=== PATIENT | male | born 1975 | race Caucasian/White ===

== ENCOUNTER 2018-11-13 16:15 | Inpatient (IN) | payer OTHER ==
[2018-11-13 21:21] VITALS: BMI 29.7
--- NOTE | 2018-11-14 01:20 | HP ---
CIWA Score Nausea/Vomitin-No Nausea/No Vomiting Muscle Tremors: 1-None Visible, but [place] Anxiety: 4-Mod. Anxious/Guarded Agitation: 4-Moderately Restless Paroxysmal Sweats: 3 Orientation: 0-Oriented Tacttile Disturbances: 0-None Auditory Disturbances: 1-Very Mild Visual Disturbances: 0-None Headache: 0-None Present CIWA-Ar Total Score: 13 - Admission Criteria OAS Guidelines: Admission for Medically Managed Detox: Requires at least one of the followin. CIWA greater than 12 2. Seizures within the past 24 hours 3. Delirium tremens within the past 24 hours 4. Hallucinations within the past 24 hours 5. Acute intervention needed for co occurring medical disorder 6. Acute intervention needed for co occurring psychiatric disorder 7. Severe withdrawal that cannot be handled at a lower level of care (continued vomiting, continued diarrhea, abnormal vital signs) requiring intravenous medication and/or fluids 8. Patient presents the following: CIWA greater than 12 Admission Criteria Met: Admission criteria met Admission ROS [facility] - [facility] Chief Complaint: c/o withdrawal sx's Allergies/Adverse Reactions: Allergies Allergy/AdvReac Type Severity Reaction Status Date / Time No Known Allergies Allergy Verified 11/13/18 21:08 History of Present Illness: 43 Y.O. MALE WITH HX/O ALCOHOLISM HERE FOR DETOX. CLIENT PRESNTS WITH C/O WITHDRAWAL SX'S. CIWA 13. RECENTLY DETOXED AT [facility] ABOUT 14 DAYS AGO. CLIENT REPORTS IMMEDIATE RELAPSE AND HAS BEEN DRINKING ALCOHOL DAILY SINCE. LAST DRINK EARLIER TODAY. +EYE CHEMICAL PROCESS ENGINEER. DENIES HX/O CLEAN TIME. ON MMTP 130MG DAILY FROM [facility] PENDING VERIFICATION. DENIES HX/O SZ, DRUG OVERDOSE, IVDU. HOMELESS-ALF, UNEMPLOYED- HRA, DENIES LEGALS Exam Limitations: No Limitations - Ebola screening Have you traveled outside of the country in the last 21 days: No Have you had contact with anyone from an Ebola affected area: No Do you have a fever: No - Review of Systems Constitutional: Chills, Loss of Appetite, Changes in sleep EENT: reports: Blurred Vision (GLASSES-NOT WITH HIM), Nose Congestion, Dental Problems (MISSING TEETH) Respiratory: reports: No Symptoms reported Cardiac: reports: No Symptoms Reported GI: reports: Poor Fluid Intake : reports: No Symptoms Reported Musculoskeletal: reports: Back Pain Integumentary: reports: No Symptoms Reported Neuro: reports: No Symptoms reported Endocrine: reports: No Symptoms Reported Hematology: reports: No Symptoms Reported Psychiatric: reports: Orientated x3, Agitated (IRRITABLE), Anxious Other Systems: Reviewed and Negative Patient History - Patient Medical History Hx Anemia: No Hx Asthma: No Hx Chronic Obstructive Pulmonary Disease (COPD): No Hx Cancer: No Hx Cardiac Disorders: No Hx Congestive Heart Failure: No Hx Hypertension: No Hx Hypercholesterolemia: No Hx Pacemaker: No HX Cerebrovascular Accident: No Hx Seizures: No Hx Dementia: No Hx Diabetes: No Hx Gastrointestinal Disorders: No Hx Liver Disease: No Hx Genitourinary Disorders: No Hx Sexually Transmitted Disorders: No Hx Renal Disease (ESRD): No Hx Thyroid Disease: No Hx Human Immunodeficiency Virus (HIV): No Hx Hepatitis C: No Hx Depression: Yes Hx Suicide Attempt: No Hx Bipolar Disorder: No Hx Schizophrenia: No Other Medical History: DENIES - Patient Surgical History Past Surgical History: No - PPD History Previous Implant?: Yes Documented Results: Negative w/proof Implanted On Prior [facility] Admission?: No Date: 07/21/18 ([facility]) Results: 0MM PPD to be Administered?: No - Smoking Cessation Smoking history: Current every day smoker Have you smoked in the past 12 months: Yes Aproximately how many cigarettes per day: 12 Cigars Per Day: 0 Hx Chewing Tobacco Use: No Initiated information on smoking cessation: Yes 'Breaking Loose' booklet given: 11/14/18 - Substance & Tx. History Hx Alcohol Use: Yes Hx Substance Use: Yes Substance Use Type: Alcohol, Cocaine, Heroin, Prescribed ([facility]) Hx Substance Use Treatment: Yes ([facility]) - Substances abused Alcohol Substance route: Oral Frequency: Daily Amount used: 12 pack - 16 ounce, 7-10 nips of alcohol Age of first use: 18 Date of last use: 11/13/18 Crack Substance route: Smoking Frequency: 3-6 times per week Amount used: $60 Age of first use: 40 Date of last use: 10/30/18 Heroin Substance route: Inhalation Frequency: 3-6 times per week Amount used: 2 BAGS Age of first use: 32 Date of last use: 11/12/18 Family Disease History - Family Disease History Family History: Denies Admission Physical Exam BHS - Vital Signs Vital Signs: Vital Signs - 24 hr 07/08/19 07/08/19 21:10 22:53 Temperature 97.8 F 97.8 F Pulse Rate 46 L 46 L Respiratory 17 17 Rate Blood Pressure 129/91 129/91 - Physical General Appearance: Yes: Mild Distress, Irritable, Sweating, Anxious HEENTM: Yes: EOMI, Normocephalic, Normal Voice, CLARISA, Pharynx Normal, Nasal Congestion, Rhinorrhea, Other (POOR DENTITION WITH MISSING TEETH) Respiratory: Yes: Chest Non-Tender, Lungs Clear, Normal Breath Sounds, No Respiratory Distress, No Accessory Muscle Use Neck: Yes: No masses,lesions,Nodules, Supple, Trachea in good position Breast: Yes: Breast Exam Deferred Cardiology: Yes: Regular Rhythm, Regular Rate, S1, S2 Abdominal: Yes: Normal Bowel Sounds, Non Tender, Soft Genitourinary: Yes: Within Normal Limits Back: Yes: Normal Inspection Musculoskeletal: Yes: full range of Motion, Gait Steady Extremities: Yes: Normal Capillary Refill, Normal Range of Motion, Non-Tender Neurological: Yes: Alert, Motor Strength 5/5, Depressed Affect Integumentary: Yes: [place] Lymphatic: Yes: Within Normal Limits - Diagnostic (1) Methadone maintenance therapy patient Current Visit: Yes Status: Chronic (2) Alcohol dependence with uncomplicated withdrawal Current Visit: Yes Status: Acute (3) Uncomplicated opioid abuse Current Visit: Yes Status: Acute (4) At risk for dehydration due to poor fluid intake Current Visit: Yes Status: Acute (5) Substance induced mood disorder Current Visit: Yes Status: Acute (6) Depressed affect Current Visit: Yes Status: Acute (7) Cannabis abuse, uncomplicated Current Visit: Yes Status: Acute Cleared for Admission [facility] - Detox or Rehab [facility] Level of Care: Medically Managed Detox Regimen/Protocol: Librium, Not Applicable Claeared for Rehab Admission: No Breathalyzer - Breathalyzer Breathalyzer: 0 Urine Drug Screen - Test Device Lot number: [id number] Expiration date: 09/05/20 - Control Is test valid?: Yes - Results Drug screen NEGATIVE: No Urine drug screen results: THC-Marijuana, FEN-Fentanyl, MOP-Opiates, MTD- Methadone, BZO-Benzodiazepines Inpatient Rehab Admission - Rehab Decision to Admit Inpatient rehab admission?: No
[2018-11-14] MEDS ORDERED: chlordiazePOXIDE HCL 25 MG CAPSULE PO PRN (01:36)
[2018-11-14] MEDS ORDERED: DICYCLOMINE HCL 10 MG CAPSULE PO PRN (01:36)
[2018-11-14] MEDS ORDERED: METHOCARBAMOL 500 MG TABLET PO PRN (01:36)
[2018-11-14] MEDS ORDERED: MAGNESIUM HYDROX 2400MG/30ML ORAL SUSPENSION 30 ML CUP PO PRN (01:36)
[2018-11-14] MEDS ORDERED: hydrOXYzine PAMOATE 25 MG CAPSULE (FP) PO PRN (01:36)
[2018-11-14] MEDS ORDERED: MAGNESIUM CITRATE 300 ML BOTTLE PO PRN (01:36)
[2018-11-14] MEDS ORDERED: IBUPROFEN 400 MG TABLET (FP) PO PRN (01:36)
[2018-11-14] MEDS ORDERED: MAG HYDROX/AL HYDROX/SIMETH 30 ML UNIT-DOSE CUP PO PRN (01:36)
[2018-11-14] MEDS ORDERED: P-EPHED 60MG/TRIPROLIDI 2.5MG TABLET PO PRN (01:36)
[2018-11-14] MEDS ORDERED: guaiFENesin 200 MG/10 ML 10 ML UNIT-DOSE CUPS PO PRN (01:36)
[2018-11-14] MEDS ORDERED: MENTHOL/PHENOL 1 EACH UD MM PRN (01:36)
[2018-11-14] MEDS ORDERED: BISMUTH SUBSALICYLATE 524 MG/30 ML UD PO PRN (01:36)
[2018-11-14] MEDS ORDERED: NICOTINE POLACRILEX 2 MG GUM BUC PRN (01:36)
[2018-11-14] MEDS ORDERED: ACETAMINOPHEN 325 MG TABLET (FP) PO PRN ×2 (01:36)
[2018-11-14] MEDS ORDERED: ONDANSETRON *ODT* 4 MG TABLET SL PRN (01:36)
[2018-11-14] MEDS: chlordiazePOXIDE HCL 25 MG CAPSULE PO SCH ×4 (06:34→22:38)
[2018-11-14] MEDS ORDERED: METHADONE HCL 10 MG TABLET PO ONE (09:12)
[2018-11-14] MEDS ORDERED: hydrOXYzine HCL 25 MG TABLET (FP) PO PRN (09:20)
[2018-11-14] MEDS ORDERED: METHADONE 120 MG, METHADONE 10 MG PO ONE ×2 (09:30)
--- NOTE | 2018-11-14 10:14 | PN ---
S CIWA - CIWA Score Nausea/Vomitin-No Nausea/No Vomiting Muscle Tremors: 3 Anxiety: 3 Agitation: 3 Paroxysmal Sweats: 3 Orientation: 0-Oriented Tacttile Disturbances: 0-None Auditory Disturbances: 0-None Visual Disturbances: 0-None Headache: 0-None Present CIWA-Ar Total Score: 12 BHS Progress Note (SOAP) Subjective: sweats shakes interrupted sleep nausea body aches Objective: 11/14/18 10:14 Vital Signs Temperature 97.9 F 11/14/18 06:00 Pulse Rate 48 L 11/14/18 06:00 Respiratory Rate 18 11/14/18 06:00 Blood Pressure 125/87 11/14/18 06:00 O2 Sat by Pulse Oximetry (%) pending lab aaox3 ambulating no acute distress Assessment: 11/14/18 10:17 withdrawal sx Plan: continue detox increase fluids
[2018-11-14] MEDS: NICOTINE 21 MG/24 HOURS TOPICAL PATCH TD SCH (10:54)
[2018-11-14] MEDS: PRENATAL VITAMINS W/ FOLIC ACID TABLET (FP) PO SCH (10:54)
[2018-11-14] MEDS ORDERED: METHADONE HCL 10 MG TABLET ONE (10:55)
[2018-11-14] MEDS ORDERED: METHADONE HCL 40 MG DISPERSABLE TABLET ONE (10:56)
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
[2018-11-14 12:20] LABS: HEMATOCRIT 40.6 % (35.4-49); MCH 31.1 pg (25.7-33.7); MCHC 34.4 g/dl (32.0-35.9); MEAN CELL VOLUME 90.6 fl (80-96); MEAN PLT VOLUME 9.3 fl (7.5-11.1); PLATELET COUNT 170 K/MM3 (134-434); RBC 4.48 M/mm3 (4.00-5.60); RDW 12.8 % (11.9-15.9); WHITE BLOOD COUNT 5.8 K/mm3 (4.0-10.0)
[2018-11-14 12:38] LABS: URINE APPEARANCE CLEAR; URINE BILIRUBIN NEGATIVE (NEGATIVE); URINE COLOR YELLOW; URINE GLUCOSE (UA) NEGATIVE (NEGATIVE); URINE KETONE NEGATIVE (NEGATIVE); URINE LEUK ESTERASE NEGATIVE (NEGATIVE); URINE NITRITE NEGATIVE (NEGATIVE); URINE PROTEIN NEGATIVE (NEGATIVE); URINE UROBILINOGEN 0.2 mg/dL (0.2-1.0)
[2018-11-14 13:02] LABS: ALBUMIN 3.6 g/dl (3.4-5.0); BILIRUBIN,TOTAL 0.6 mg/dL (0.2-1); BLOOD UREA NITROGEN 17.2 mg/dL (7-18); CALCIUM 8.5 mg/dL (8.5-10.1); CREATININE 1.1 mg/dL (0.55-1.3); POTASSIUM 4.2 mmol/L (3.5-5.1); TOT PROT 6.7 g/dl (6.4-8.2)
--- NOTE | 2018-11-14 14:34 | EKG ---
Test Reason : Blood Pressure : / mmHG Vent. Rate : 049 BPM Atrial Rate : 049 BPM P-R Int : 160 ms QRS Dur : 096 ms QT Int : 504 ms P-R-T Axes : 044 060 027 degrees QTc Int : 455 ms SINUS BRADYCARDIA T WAVE ABNORMALITY, CONSIDER ANTERIOR ISCHEMIA ABNORMAL ECG NO PREVIOUS ECGS AVAILABLE Confirmed by Osmar Borges ([id number]) on 11/14/2018 2:34:16 PM Referred By: Confirmed By:Osmar Borges
[2018-11-14] MEDS: hydrOXYzine PAMOATE 50 MG CAPSULE (FP) PO PRN ×2 (17:24→22:42)
[2018-11-14] MEDS: THIAMINE HCL 100 MG TABLET (FP) PO SCH (22:39)
[2018-11-14] MEDS: MELATONIN 5 MG TABLETS PO PRN (22:39)
[2018-11-14] MEDS: traZODone HCL 100 MG TABLET (FP) PO SCH (22:39)
[2018-11-15] MEDS ORDERED: METHADONE HCL 10 MG TABLET ONE (04:25)
[2018-11-15] MEDS ORDERED: METHADONE HCL 40 MG DISPERSABLE TABLET ONE (04:26)
[2018-11-15] MEDS ORDERED: METHADONE HCL 40 MG DISPERSABLE TABLET PO SCH (06:00)
[2018-11-15] MEDS: chlordiazePOXIDE HCL 25 MG CAPSULE PO SCH ×4 (06:02→23:19)
[2018-11-15] MEDS: METHADONE 120 MG, METHADONE 10 MG PO SCH (06:02)
[2018-11-15] MEDS: NICOTINE 21 MG/24 HOURS TOPICAL PATCH TD SCH (10:43)
[2018-11-15] MEDS: PRENATAL VITAMINS W/ FOLIC ACID TABLET (FP) PO SCH (10:43)
[2018-11-15] MEDS: hydrOXYzine PAMOATE 50 MG CAPSULE (FP) PO PRN (10:45)
--- NOTE | 2018-11-15 11:27 | PN ---
S CIWA - CIWA Score Nausea/Vomitin-No Nausea/No Vomiting Muscle Tremors: 2 Anxiety: 2 Agitation: 3 Paroxysmal Sweats: 3 Orientation: 0-Oriented Tacttile Disturbances: 0-None Auditory Disturbances: 0-None Visual Disturbances: 0-None Headache: 0-None Present CIWA-Ar Total Score: 10 BHS Progress Note (SOAP) Subjective: sweats shakes interrupted sleep agitation body aches Objective: 11/15/18 11:26 Vital Signs Temperature 98.6 F 11/15/18 09:30 Pulse Rate 45 L 11/15/18 09:30 Respiratory Rate 18 11/15/18 09:30 Blood Pressure 116/74 11/15/18 09:30 O2 Sat by Pulse Oximetry (%) Laboratory Tests 11/14/18 11/14/18 11/14/18 06:00 06:00 06:00 WBC 5.8 RBC 4.48 Hgb 14.0 Hct 40.6 MCV 90.6 MCH 31.1 MCHC 34.4 RDW 12.8 Plt Count 170 MPV 9.3 Sodium 138 Potassium 4.2 Chloride 104 Carbon Dioxide 28 Anion Gap 6 L BUN 17.2 Creatinine 1.1 Est GFR (CKD-EPI)AfAm 96.13 Est GFR (CKD-EPI)NonAf 82.94 Random Glucose 86 Calcium 8.5 Total Bilirubin 0.6 AST 24 ALT 51 Alkaline Phosphatase 70 Total Protein 6.7 Albumin 3.6 Urine Color Urine Appearance Urine pH Ur Specific [place] Urine Protein Urine Glucose (UA) Urine Ketones Urine Blood Urine Nitrite Urine Bilirubin Urine Urobilinogen Ur Leukocyte Esterase RPR Titer Nonreactive 11/14/18 07:15 WBC RBC Hgb Hct MCV MCH MCHC RDW Plt Count MPV Sodium Potassium Chloride Carbon Dioxide Anion Gap BUN Creatinine Est GFR (CKD-EPI)AfAm Est GFR (CKD-EPI)NonAf Random Glucose Calcium Total Bilirubin AST ALT Alkaline Phosphatase Total Protein Albumin Urine Color Yellow Urine Appearance Clear Urine pH 8.0 Ur Specific [place] 1.010 Urine Protein Negative Urine Glucose (UA) Negative Urine Ketones Negative Urine Blood Negative Urine Nitrite Negative Urine Bilirubin Negative Urine Urobilinogen 0.2 Ur Leukocyte Esterase Negative RPR Titer labs noted aaox3 ambulating no acute distress Assessment: 11/15/18 11:26 withdrawal sx Plan: continue detox increase fluids
[2018-11-15 20:51] VITALS: PULSE 50
[2018-11-15] MEDS: traZODone HCL 100 MG TABLET (FP) PO SCH (22:10)
[2018-11-15] MEDS: MELATONIN 5 MG TABLETS PO PRN (22:10)
[2018-11-15] MEDS: THIAMINE HCL 100 MG TABLET (FP) PO SCH (22:10)
[2018-11-16] MEDS ORDERED: chlordiazePOXIDE HCL 10 MG CAPSULE PO PRN
[2018-11-16] MEDS ORDERED: METHADONE HCL 40 MG DISPERSABLE TABLET ONE (04:16)
[2018-11-16] MEDS ORDERED: METHADONE HCL 10 MG TABLET ONE (04:16)
[2018-11-16] MEDS ORDERED: chlordiazePOXIDE HCL 10 MG CAPSULE PO SCH (05:00)
[2018-11-16] MEDS: METHADONE 120 MG, METHADONE 10 MG PO SCH (05:14)
[2018-11-16 06:36] VITALS: BP 128/80; TEMP 97.3
--- NOTE | 2018-11-16 09:41 | PN ---
[facility] Progress Note Note: pt was admitted in withdrawals pt c/o of withdrawal sx and aggressive s/s management attempted however pt in spite of extensive motivational counseling regarding the risk of relapse, seizures, OD and or loss, pt chose to sign out AMA.
--- NOTE | 2018-11-16 09:46 | DS ---
[facility] Detox Discharge Summary Admission Date: 11/14/18 - History Present History: Alcohol Dependence, Cannabis Dependence, Cocaine Dependence, Opioid Dependence - Physical Exam Results Vital Signs: Vital Signs Temperature 97.3 F L 11/15/18 22:00 Pulse Rate 50 L 11/15/18 22:00 Respiratory Rate 18 11/16/18 03:30 Blood Pressure 128/80 11/15/18 22:00 O2 Sat by Pulse Oximetry (%) Pertinent Admission Physical Exam Findings: pt d/c AAOx3 no s/s of withdrawals noted all belonging and d/c papers provided. - Treatment Hospital Course: Discharged Condition Good - Medication Discharge Medications: Ambulatory Orders Hydroxyzine HCl 25 mg PO PRN 11/13/18 cloNIDine HCL [Catapres -] 0.1 mg PO TID 11/13/18 - Diagnosis (1) Alcohol dependence with uncomplicated withdrawal Current Visit: Yes Status: Chronic (2) Cannabis abuse, uncomplicated Current Visit: Yes Status: Chronic (3) Cocaine dependence Current Visit: Yes Status: Chronic Qualifiers: Substance use status: uncomplicated Qualified Code(s): F14.20 - Cocaine dependence, uncomplicated (4) Substance induced mood disorder Current Visit: Yes Status: Chronic (5) Substance-induced sleep disorder Current Visit: Yes Status: Acute (6) Nicotine dependence Current Visit: Yes Status: Chronic Qualifiers: Nicotine product type: cigarettes Substance use status: uncomplicated Qualified Code(s): F17.210 - Nicotine dependence, cigarettes, uncomplicated (7) Anxiety disorder Current Visit: Yes Status: Ruled-out (8) Mood disorder Current Visit: Yes Status: Ruled-out (9) Opioid dependence with withdrawal Current Visit: Yes Status: Chronic - AMA Did Patient Leave Against Medical Advice: Yes (pt declined rehab; referred to [facility] when he is ready)
[2018-11-17] MEDS ORDERED: chlordiazePOXIDE HCL 10 MG CAPSULE PO SCH (05:00)
[2018-11-18] MEDS ORDERED: chlordiazePOXIDE HCL 10 MG CAPSULE PO ONE (05:00)
== END 2018-11-16 09:21 | disposition home or self-care (01) | DRG 773 ==
LOC: YASAS 16:15 → Y6N 11-14 01:30
PROVIDERS: ADMIT Surgery; ATTEND Surgery
PROC: HZ2ZZZZ Detoxification Services for Substance Abuse Treatment (ICD-10-PCS; principal; 2018-11-14)
DX: F11.23 Opioid dependence with withdrawal (principal); F10.230 Alcohol dependence with withdrawal, uncomplicated; F14.20 Cocaine dependence, uncomplicated; F12.20 Cannabis dependence, uncomplicated; F17.210 Nicotine dependence, cigarettes, uncomplicated; F19.282 Other psychoactive substance dependence with psychoactive substance-induced sleep disorder; F19.24 Other psychoactive substance dependence with psychoactive substance-induced mood disorder; F32.9 Major depressive disorder, single episode, unspecified; R45.89 Other symptoms and signs involving emotional state; Z91.89 Other specified personal risk factors, not elsewhere classified
CPT/HCPCS: 36415; 80053; 81003; 85027; 86593; 93005; 93010

== ENCOUNTER 2019-06-08 10:25 | Inpatient (IN) | payer OTHER ==
[2019-06-08 11:13] VITALS: BMI 25.2
--- NOTE | 2019-06-08 12:05 | HP ---
CIWA Score Nausea/Vomitin Muscle Tremors: 1-None Visible, but [place] Anxiety: 4-Mod. Anxious/Guarded Agitation: 2 Paroxysmal Sweats: 2 Orientation: 0-Oriented Tacttile Disturbances: 1-Very Mild Itch/Numbness Auditory Disturbances: 0-None Visual Disturbances: 1-Very Mild Sensitivity Headache: 0-None Present CIWA-Ar Total Score: 13 - Admission Criteria OASAS Guidelines: Admission for Medically Managed Detox: Requires at least one of the followin. CIWA greater than 12 2. Seizures within the past 24 hours 3. Delirium tremens within the past 24 hours 4. Hallucinations within the past 24 hours 5. Acute intervention needed for co occurring medical disorder 6. Acute intervention needed for co occurring psychiatric disorder 7. Severe withdrawal that cannot be handled at a lower level of care (continued vomiting, continued diarrhea, abnormal vital signs) requiring intravenous medication and/or fluids 8. Admitting History and Physical - Smoking History Smoking history: Current every day smoker Have you smoked in the past 12 months: Yes Aproximately how many cigarettes per day: 12 - Alcohol/Substance Use Hx Alcohol Use: Yes Admission ROS [facility] Allergies/Adverse Reactions: Allergies Allergy/AdvReac Type Severity Reaction Status Date / Time No Known Allergies Allergy Verified 06/08/19 11:06 History of Present Illness: 43 y.o. male requesting detox from etoh use , reports 1 pint /day latest use yesterday , reports nausea if not drinking , denies seizures, had blackout 2 mo ago , completed detox & rehab in [facility] and relapsed after d/c . PMHX : denies psych : insomnia on Seroquel Pshx : denies tobacco : 12 cigs/day Exam Limitations: Clinical Condition - Review of Systems Constitutional: Loss of Appetite EENT: reports: No Symptoms Reported Respiratory: reports: No Symptoms reported Cardiac: reports: No Symptoms Reported GI: reports: Constipated, Poor Appetite : reports: No Symptoms Reported Musculoskeletal: reports: No Symptoms Reported Integumentary: reports: No Symptoms Reported Neuro: reports: See HPI Endocrine: reports: No Symptoms Reported Psychiatric: reports: Anxious, Depressed, Disorientated Patient History - Patient Medical History Hx Anemia: No Hx Asthma: No Hx Chronic Obstructive Pulmonary Disease (COPD): No Hx Cancer: No Hx Cardiac Disorders: No Hx Congestive Heart Failure: No Hx Hypertension: No Hx Hypercholesterolemia: No Hx Pacemaker: No HX Cerebrovascular Accident: No Hx Seizures: No Hx Dementia: No Hx Diabetes: No Hx Gastrointestinal Disorders: No Hx Liver Disease: No Hx Genitourinary Disorders: No Hx Sexually Transmitted Disorders: No Hx Renal Disease (ESRD): No Hx Thyroid Disease: No Hx Human Immunodeficiency Virus (HIV): No Hx Hepatitis C: No Hx Depression: No Hx Suicide Attempt: No Hx Bipolar Disorder: No Hx Schizophrenia: No - Patient Surgical History Past Surgical History: No Hx Neurologic Surgery: No Hx Cataract Extraction: No Hx Cardiac Surgery: No Hx Lung Surgery: No Hx Breast Surgery: No Hx Breast Biopsy: No Hx Abdominal Surgery: No Hx Appendectomy: No Hx Cholecystectomy: No Hx Genitourinary Surgery: No Hx Section: No Hx Orthopedic Surgery: No Anesthesia Reaction: No - PPD History Date: 07/21/18 Results: 0MM - Smoking Cessation Smoking history: Current every day smoker Have you smoked in the past 12 months: Yes Aproximately how many cigarettes per day: 12 Cigars Per Day: 0 Hx Chewing Tobacco Use: No Initiated information on smoking cessation: Yes 'Breaking Loose' booklet given: 06/08/19 - Substances abused Alcohol Substance route: Oral Frequency: Daily Amount used: vodka- 1pt Age of first use: 16 Date of last use: 06/07/19 Heroin Substance route: Inhalation Frequency: Daily Amount used: 3bags Age of first use: 32 Date of last use: 06/07/19 Crack Substance route: Smoking Frequency: Daily Amount used: $50 Age of first use: 40 Date of last use: 06/06/19 Admission Physical Exam S - Vital Signs Vital Signs: Vital Signs - 24 hr 06/08/19 11:05 Temperature 98.2 F Pulse Rate 55 L Respiratory 18 Rate Blood Pressure 135/97 - Physical General Appearance: Yes: Disheveled, Mild Distress, Anxious HEENTM: Yes: EOMI, Hearing grossly Normal, Normocephalic, Muffled/Hoarse Voice, Other (myopia , denies dysphagia) Respiratory: Yes: Within Normal Limits Neck: Yes: Within Normal Limits Cardiology: Yes: Regular Rhythm, Regular Rate, S1, S2 Abdominal: Yes: Non Tender, Soft Musculoskeletal: Yes: Gait Steady Extremities: Yes: Normal Range of Motion, Non-Tender Neurological: Yes: Alert, Motor Strength 5/5, Depressed Affect Integumentary: Yes: Warm, Other (superficial staining fingertips right hand 2/ 2 tobacco use) - Diagnostic (1) Alcohol dependence with uncomplicated withdrawal Current Visit: Yes Status: Chronic (2) Nicotine dependence Current Visit: Yes Status: Chronic Qualifiers: Nicotine product type: cigarettes Substance use status: uncomplicated Qualified Code(s): F17.210 - Nicotine dependence, cigarettes, uncomplicated Breathalyzer - Breathalyzer Breathalyzer: 0 Urine Drug Screen - Test Device Lot number: [id number] Expiration date: 04/02/21 - Control Is test valid?: Yes - Results Drug screen NEGATIVE: No Urine drug screen results: THC-Marijuana, MOP-Opiates, MTD-Methadone Inpatient Rehab Admission - Rehab Decision to Admit Inpatient rehab admission?: No
[2019-06-08] MEDS ORDERED: MAG HYDROX/AL HYDROX/SIMETH 30 ML UNIT-DOSE CUP PO PRN (12:10)
[2019-06-08] MEDS ORDERED: IBUPROFEN 400 MG TABLET (FP) PO PRN (12:10)
[2019-06-08] MEDS ORDERED: BISMUTH SUBSALICYLATE 524 MG/30 ML UD PO PRN (12:10)
[2019-06-08] MEDS ORDERED: MELATONIN 5 MG TABLETS PO PRN (12:10)
[2019-06-08] MEDS ORDERED: ACETAMINOPHEN 325 MG TABLET (FP) PO PRN ×2 (12:10)
[2019-06-08] MEDS ORDERED: MAGNESIUM HYDROX 2400MG/30ML ORAL SUSPENSION 30 ML CUP PO PRN (12:10)
[2019-06-08] MEDS ORDERED: MENTHOL/PHENOL 1 EACH UD MM PRN (12:10)
[2019-06-08] MEDS ORDERED: hydrOXYzine PAMOATE 25 MG CAPSULE (FP) PO PRN (12:10)
[2019-06-08] MEDS ORDERED: MAGNESIUM CITRATE 300 ML BOTTLE PO PRN (12:10)
[2019-06-08] MEDS ORDERED: NICOTINE POLACRILEX 2 MG GUM BUC PRN (12:10)
[2019-06-08] MEDS ORDERED: diazePAM 5 MG TABLET PO PRN (12:14)
[2019-06-08] MEDS: diazePAM 5 MG TABLET PO SCH ×2 (13:47→22:40)
[2019-06-08] MEDS: ASPIRIN 81 MG CHEWABLE TABLETS PO SCH (13:47)
[2019-06-08] MEDS: METHOCARBAMOL 500 MG TABLET PO PRN ×2 (13:48→22:40)
--- NOTE | 2019-06-08 14:35 | CONSULT ---
[facility] Psychiatric Consult - Data Date of interview: 06/08/19 Admission source: [facility] Identifying data: Revisit to [facility] and admission to [address] [place] [address] for this 43 y/o male self-referred for detoxification treatment. ELYSE issues : heroin, benzodiazepines, alcohol, nicotine. Patient is , no dependents, homeless, unempleoyed and supported on food stamps. Substance Abuse History: Discussed with the patient. Details in current [facility] report as follows : Smoking history: Current every day smoker. Have you smoked in the past 12 months: Yes. Aproximately how many cigarettes per day: 12. Cigars Per Day: 0. Hx Chewing Tobacco Use: No. Initiated information on smoking cessation: Yes. 'Breaking Loose' booklet given: 06/08/19. - Substances abused. Alcohol. Substance route: Oral. Frequency: Daily. Amount used: vodka- 1pt. Age of first use: 16. Date of last use: 06/07/19. * * Heroin. Substance route: Inhalation. Frequency: Daily. Amount used: 3bags. Age of first use: 32. Date of last use: 06/07/19. Crack. Substance route : Smoking. Frequency: Daily. Amount used: $50. Age of first use: 40. Date of last use: 06/06/19 Medical History: methadone 130 mg/day from [facility]. Psychiatric History: No contact with mental health providers until October 2018 ( admission to [facility]). patient was, at the time, prescribed trazodone, clonidine and hydroxizine. In this interview, Mr Lynn reports that he got admitted, late 2018, to the inpatient psychiatric service at [facility] (two week retention for depression). Diagnosed with MDD and Anxiety Disorder. Patient indicates that he sees a psychiatrist at the [facility] for aftercare. He is also on methadone maintenance (150 mg/day) at the [facility]. Denies history of suicide attempts. Physical/Sexual Abuse/Trauma History: Patient denies. Additional Comment: Urine drug screen results: THC-Marijuana, MOP-Opiates, MTD- Methadone. Noted. Mental Status Exam - Mental Status Exam Alert and Oriented to: Time, Place, Person Cognitive Function: Good Patient Appearance: Well Groomed Mood: Anxious, Hopeful Affect: Appropriate, Normal Range Patient Behavior: Fatigued, Appropriate, Cooperative Speech Pattern: Clear, Appropriate Voice Loudness: Normal Thought Process: Intact, Goal Oriented Thought Disorder: Not Present Hallucinations: Denies Suicidal Ideation: Denies Homicidal Ideation: Denies Insight/Judgement: Poor Sleep: Poorly, Difficulty falling asleep Appetite: Good Gait/Station: Normal Psychiatric Findings - Problem List ([place] 1, 2,3) (1) Alcohol dependence with uncomplicated withdrawal Current Visit: Yes Status: Acute (2) Opioid dependence on agonist therapy Current Visit: Yes Status: Chronic (3) Cocaine dependence Current Visit: Yes Status: Chronic Qualifiers: Substance use status: uncomplicated Qualified Code(s): F14.20 - Cocaine dependence, uncomplicated (4) Cannabis abuse, uncomplicated Current Visit: Yes Status: Chronic (5) Nicotine dependence Current Visit: Yes Status: Chronic Qualifiers: Nicotine product type: cigarettes Substance use status: uncomplicated Qualified Code(s): F17.210 - Nicotine dependence, cigarettes, uncomplicated (6) Substance induced mood disorder Current Visit: Yes Status: Chronic (7) Insomnia Current Visit: Yes Status: Chronic - Initial Treatment Plan Initial Treatment Plan: Psychoeducation. Sleep hygiene. Detoxification. Support. AA/NA meetings. Resumed at patient's request : seroquel 50 mg po hs. Side effects/benefits discussed with patient. Verbal consent is obtained from the patient. Rehabilitation recommended. Observation.
[2019-06-08 16:48] LABS: HEMATOCRIT 43.4 % (35.4-49); HEMOGLOBIN 14.6 GM/dL (11.7-16.9); MCH 31.2 pg (25.7-33.7); MCHC 33.7 g/dl (32.0-35.9); MEAN CELL VOLUME 92.5 fl (80-96); MEAN PLT VOLUME 9.2 fl (7.5-11.1); PLATELET COUNT 196 K/MM3 (134-434); RBC 4.69 M/mm3 (4.00-5.60); RDW 14.1 % (11.9-15.9); WHITE BLOOD COUNT 6.4 K/mm3 (4.0-10.0)
[2019-06-08 17:04] LABS: ALBUMIN 3.6 g/dl (3.4-5.0); BILIRUBIN,TOTAL 0.4 mg/dL (0.2-1); BLOOD UREA NITROGEN 8.9 mg/dL (7-18); CALCIUM 8.7 mg/dL (8.5-10.1); CREATININE 0.9 mg/dL (0.55-1.3); POTASSIUM 3.9 mmol/L (3.5-5.1); TOT PROT 7.5 g/dl (6.4-8.2)
[2019-06-08] MEDS: THIAMINE HCL 100 MG TABLET (FP) PO SCH (22:40)
[2019-06-08] MEDS: QUEtiapine FUMARATE 50 MG TABLET PO SCH (22:40)
[2019-06-09] MEDS ORDERED: METHADONE HCL 10 MG TABLET ONE (04:46)
[2019-06-09] MEDS ORDERED: METHADONE HCL 40 MG DISPERSABLE TABLET ONE (04:47)
[2019-06-09] MEDS ORDERED: METHADONE HCL 10 MG TABLET PO SCH (06:00)
[2019-06-09] MEDS: METHADONE 120 MG, METHADONE 30 MG PO SCH (06:45)
[2019-06-09] MEDS: diazePAM 5 MG TABLET PO SCH ×3 (06:45→23:16)
[2019-06-09] MEDS: PRENATAL VITAMINS W/ FOLIC ACID TABLET (FP) PO SCH (11:13)
[2019-06-09] MEDS: amLODIPine BESYLATE 10 MG TABLET (FP) PO SCH (11:13)
[2019-06-09] MEDS: ASPIRIN 81 MG CHEWABLE TABLETS PO SCH (11:13)
--- NOTE | 2019-06-09 11:29 | PN ---
S CIWA - CIWA Score Nausea/Vomitin-No Nausea/No Vomiting Muscle Tremors: 2 Anxiety: 3 Agitation: 1-Slight > Activity Paroxysmal Sweats: 3 Orientation: 0-Oriented Tacttile Disturbances: 0-None Auditory Disturbances: 0-None Visual Disturbances: 0-None Headache: 1-Very Mild CIWA-Ar Total Score: 10 S Progress Note (SOAP) Subjective: c/o sweats, shakes, anxiety, light headedness, weakness, and headache. Objective: 06/09/19 11:34 Vital Signs 06/09/19 06/09/19 06/09/19 06:40 08:52 11:05 Temperature 98.5 F 97.6 F Pulse Rate 46 L 40 L 59 L Respiratory 18 16 Rate Blood Pressure 140/95 154/99 175/106 H 06/09/19 11:06 Temperature Pulse Rate 56 L Respiratory Rate Blood Pressure 166/113 H Laboratory Last Values WBC 6.4 K/mm3 (4.0-10.0) 06/08/19 12:30 RBC 4.69 M/mm3 (4.00-5.60) 06/08/19 12:30 Hgb 14.6 GM/dL (11.7-16.9) 06/08/19 12:30 Hct 43.4 % (35.4-49) 06/08/19 12:30 MCV 92.5 fl (80-96) 06/08/19 12:30 MCH 31.2 pg (25.7-33.7) 06/08/19 12:30 MCHC 33.7 g/dl (32.0-35.9) 06/08/19 12:30 RDW 14.1 % (11.9-15.9) D 06/08/19 12:30 Plt Count 196 K/MM3 (134-434) 06/08/19 12:30 MPV 9.2 fl (7.5-11.1) 06/08/19 12:30 Sodium 138 mmol/L (136-145) 06/08/19 12:30 Potassium 3.9 mmol/L (3.5-5.1) 06/08/19 12:30 Chloride 106 mmol/L (98-107) 06/08/19 12:30 Carbon Dioxide 28 mmol/L (21-32) 06/08/19 12:30 Anion Gap 5 MMOL/L (8-16) L 06/08/19 12:30 BUN 8.9 mg/dL (7-18) 06/08/19 12:30 Creatinine 0.9 mg/dL (0.55-1.3) 06/08/19 12:30 Est GFR (CKD-EPI)AfAm 122.52 06/08/19 12:30 Est GFR (CKD-EPI)NonAf 105.71 06/08/19 12:30 Random Glucose 86 mg/dL (74-106) 06/08/19 12:30 Calcium 8.7 mg/dL (8.5-10.1) 06/08/19 12:30 Total Bilirubin 0.4 mg/dL (0.2-1) 06/08/19 12:30 AST 15 U/L (15-37) 06/08/19 12:30 ALT 21 U/L (13-61) 06/08/19 12:30 Alkaline Phosphatase 84 U/L (45-117) 06/08/19 12:30 Total Protein 7.5 g/dl (6.4-8.2) 06/08/19 12:30 Albumin 3.6 g/dl (3.4-5.0) 06/08/19 12:30 RPR Titer Nonreactive (NONREACTIVE) 06/08/19 12:30 Labs noted. Assessment: 06/09/19 11:35 AOX3, in no acute respiratory distress. Full ROM, ambulating in the unit. Withdrawal symptoms. Withdrawal symptoms. Bradycardia. Elevated BP. Abnormal EKG, marked bradycardia, marked T wave abnormality, consider lateral ischemia, prolonged QT. Plan: Send to ED for evaluation. Verbal report given to Dr. High at [facility] ED.
--- NOTE | 2019-06-09 16:31 | EKG ---
Test Reason : Blood Pressure : / mmHG Vent. Rate : 040 BPM Atrial Rate : 040 BPM P-R Int : 168 ms QRS Dur : 098 ms QT Int : 566 ms P-R-T Axes : 065 058 037 degrees QTc Int : 461 ms MARKED SINUS BRADYCARDIA LEFT ATRIAL ENLARGEMENT LEFT VENTRICULAR HYPERTROPHY WITH REPOLARIZATION ABNORMALITY Prominent U waves PROLONGED QT ABNORMAL ECG Confirmed by MD GÓMEZ MOYSES ([id number]) on 06/09/2019 4:31:03 PM Referred By: Confirmed By:SUSIE GÓMEZ MD
[2019-06-09] MEDS: QUEtiapine FUMARATE 50 MG TABLET PO SCH (23:16)
[2019-06-09] MEDS: THIAMINE HCL 100 MG TABLET (FP) PO SCH (23:16)
[2019-06-10] MEDS ORDERED: METHADONE HCL 10 MG TABLET ONE (05:07)
[2019-06-10] MEDS ORDERED: METHADONE HCL 40 MG DISPERSABLE TABLET ONE (05:08)
[2019-06-10] MEDS: diazePAM 5 MG TABLET PO SCH ×2 (07:14→17:49)
[2019-06-10] MEDS: METHADONE 120 MG, METHADONE 30 MG PO SCH (07:14)
[2019-06-10] MEDS: ASPIRIN 81 MG CHEWABLE TABLETS PO SCH (10:18)
[2019-06-10] MEDS: PRENATAL VITAMINS W/ FOLIC ACID TABLET (FP) PO SCH (10:18)
[2019-06-10] MEDS: amLODIPine BESYLATE 10 MG TABLET (FP) PO SCH (10:18)
--- NOTE | 2019-06-10 13:41 | PN ---
S CIWA - CIWA Score Nausea/Vomitin-No Nausea/No Vomiting Muscle Tremors: 1-None Visible, but [place] Anxiety: 1-Mildly Anxious Agitation: 1-Slight > Activity Paroxysmal Sweats: 1-Minimal Palms Moist Orientation: 0-Oriented Tacttile Disturbances: 0-None Auditory Disturbances: 0-None Visual Disturbances: 1-Very Mild Sensitivity Headache: 0-None Present CIWA-Ar Total Score: 5 [facility] Progress Note (SOAP) Subjective: 43 years old male admitted on 06/08/19 for alcohol withdrawal sx management treating with valium detox regiment feeling better today less anxiousness sleep better at night patient prefers returning to methadone program for behavior and psychosocial therapies Objective: 06/10/19 13:40 Vital Signs Temperature 98.8 F 06/10/19 08:52 Pulse Rate 64 06/10/19 08:52 Respiratory Rate 18 06/10/19 08:52 Blood Pressure 143/95 06/10/19 08:52 O2 Sat by Pulse Oximetry (%) Laboratory Last Values WBC 6.4 K/mm3 (4.0-10.0) 06/08/19 12:30 RBC 4.69 M/mm3 (4.00-5.60) 06/08/19 12:30 Hgb 14.6 GM/dL (11.7-16.9) 06/08/19 12:30 Hct 43.4 % (35.4-49) 06/08/19 12:30 MCV 92.5 fl (80-96) 06/08/19 12:30 MCH 31.2 pg (25.7-33.7) 06/08/19 12:30 MCHC 33.7 g/dl (32.0-35.9) 06/08/19 12:30 RDW 14.1 % (11.9-15.9) D 06/08/19 12:30 Plt Count 196 K/MM3 (134-434) 06/08/19 12:30 MPV 9.2 fl (7.5-11.1) 06/08/19 12:30 Sodium 138 mmol/L (136-145) 06/08/19 12:30 Potassium 3.9 mmol/L (3.5-5.1) 06/08/19 12:30 Chloride 106 mmol/L (98-107) 06/08/19 12:30 Carbon Dioxide 28 mmol/L (21-32) 06/08/19 12:30 Anion Gap 5 MMOL/L (8-16) L 06/08/19 12:30 BUN 8.9 mg/dL (7-18) 06/08/19 12:30 Creatinine 0.9 mg/dL (0.55-1.3) 06/08/19 12:30 Est GFR (CKD-EPI)AfAm 122.52 06/08/19 12:30 Est GFR (CKD-EPI)NonAf 105.71 06/08/19 12:30 Random Glucose 86 mg/dL (74-106) 06/08/19 12:30 Calcium 8.7 mg/dL (8.5-10.1) 06/08/19 12:30 Total Bilirubin 0.4 mg/dL (0.2-1) 06/08/19 12:30 AST 15 U/L (15-37) 06/08/19 12:30 ALT 21 U/L (13-61) 06/08/19 12:30 Alkaline Phosphatase 84 U/L (45-117) 06/08/19 12:30 Total Protein 7.5 g/dl (6.4-8.2) 06/08/19 12:30 Albumin 3.6 g/dl (3.4-5.0) 06/08/19 12:30 RPR Titer Nonreactive (NONREACTIVE) 06/08/19 12:30 lab noted Assessment: 06/10/19 13:41 alcohol withdrawal Plan: valium regiment
[2019-06-10] MEDS: THIAMINE HCL 100 MG TABLET (FP) PO SCH (22:28)
[2019-06-10] MEDS: QUEtiapine FUMARATE 50 MG TABLET PO SCH (22:28)
[2019-06-11] MEDS ORDERED: METHADONE HCL 10 MG TABLET ONE (04:51)
[2019-06-11] MEDS ORDERED: METHADONE HCL 40 MG DISPERSABLE TABLET ONE (04:51)
[2019-06-11] MEDS ORDERED: diazePAM 5 MG TABLET PO ONE (06:00)
[2019-06-11] MEDS: METHADONE 120 MG, METHADONE 30 MG PO SCH (06:18)
[2019-06-11] MEDS: PRENATAL VITAMINS W/ FOLIC ACID TABLET (FP) PO SCH (10:12)
[2019-06-11] MEDS: ASPIRIN 81 MG CHEWABLE TABLETS PO SCH (10:12)
[2019-06-11] MEDS: amLODIPine BESYLATE 10 MG TABLET (FP) PO SCH (10:12)
--- NOTE | 2019-06-11 11:33 | DS ---
[facility] Detox Discharge Summary Admission Date: 06/08/19 Discharge Date: 06/11/19 - History Present History: Alcohol Dependence Additional Comments: 43 years old male admitted on 06/08/19 for alcohol withdrawal sx management treated with valium detox regiment patient has completed the valium regiment and tolerated well alert oriented x 3 see by psychiatrist resume seroquel 50mg hs po respiratory clear lungs bilaterally on auscultation abdomen soft no rebound tenderness skin warm and dry - Physical Exam Results Vital Signs: Vital Signs Temperature 98.6 F 06/11/19 08:52 Pulse Rate 103 H 06/11/19 08:52 Respiratory Rate 06/11/19 08:52 Blood Pressure 133/99 06/11/19 08:52 O2 Sat by Pulse Oximetry (%) Pertinent Admission Physical Exam Findings: alcohol withdrawal Laboratory Last Values WBC 6.4 K/mm3 (4.0-10.0) 06/08/19 12:30 RBC 4.69 M/mm3 (4.00-5.60) 06/08/19 12:30 Hgb 14.6 GM/dL (11.7-16.9) 06/08/19 12:30 Hct 43.4 % (35.4-49) 06/08/19 12:30 MCV 92.5 fl (80-96) 06/08/19 12:30 MCH 31.2 pg (25.7-33.7) 06/08/19 12:30 MCHC 33.7 g/dl (32.0-35.9) 06/08/19 12:30 RDW 14.1 % (11.9-15.9) D 06/08/19 12:30 Plt Count 196 K/MM3 (134-434) 06/08/19 12:30 MPV 9.2 fl (7.5-11.1) 06/08/19 12:30 Sodium 138 mmol/L (136-145) 06/08/19 12:30 Potassium 3.9 mmol/L (3.5-5.1) 06/08/19 12:30 Chloride 106 mmol/L (98-107) 06/08/19 12:30 Carbon Dioxide 28 mmol/L (21-32) 06/08/19 12:30 Anion Gap 5 MMOL/L (8-16) L 06/08/19 12:30 BUN 8.9 mg/dL (7-18) 06/08/19 12:30 Creatinine 0.9 mg/dL (0.55-1.3) 06/08/19 12:30 Est GFR (CKD-EPI)AfAm 122.52 06/08/19 12:30 Est GFR (CKD-EPI)NonAf 105.71 06/08/19 12:30 Random Glucose 86 mg/dL (74-106) 06/08/19 12:30 Calcium 8.7 mg/dL (8.5-10.1) 06/08/19 12:30 Total Bilirubin 0.4 mg/dL (0.2-1) 06/08/19 12:30 AST 15 U/L (15-37) 06/08/19 12:30 ALT 21 U/L (13-61) 06/08/19 12:30 Alkaline Phosphatase 84 U/L (45-117) 06/08/19 12:30 Total Protein 7.5 g/dl (6.4-8.2) 06/08/19 12:30 Albumin 3.6 g/dl (3.4-5.0) 06/08/19 12:30 RPR Titer Nonreactive (NONREACTIVE) 06/08/19 12:30 lab noted - Treatment Hospital Course: Detox Protocol Followed, Detoxed Safely, Responded well, Discharged Condition Good, Rehab Referral Accepted Patient has Accepted [facility] Referral [facility] - Medication Discharge Medications: Ambulatory Orders Amlodipine Besylate [Norvasc -] 10 mg PO DAILY 06/08/19 Quetiapine Fumarate [Seroquel -] 50 mg PO HS 06/08/19 - Diagnosis (1) Alcohol dependence with uncomplicated withdrawal Current Visit: Yes Status: Acute (2) Nicotine dependence Current Visit: Yes Status: Acute Qualifiers: Nicotine product type: cigarettes Substance use status: in withdrawal Qualified Code(s): F17.213 - Nicotine dependence, cigarettes, with withdrawal (3) Substance induced mood disorder Current Visit: Yes Status: Suspected - AMA Did Patient Leave Against Medical Advice: No CIWA Score - CIWA Score Nausea/Vomitin-No Nausea/No Vomiting Muscle Tremors: 1-None Visible, but [place] Anxiety: 1-Mildly Anxious Agitation: 0-Normal Activity Paroxysmal Sweats: 1-Minimal Palms Moist Orientation: 0-Oriented Tacttile Disturbances: 0-None Auditory Disturbances: 0-None Visual Disturbances: 0-None Headache: 0-None Present CIWA-Ar Total Score: 3
[2019-06-11 13:36] VITALS: BP 129/99; PULSE 93; TEMP 97.3
== END 2019-06-11 14:09 | disposition other institution (70) | DRG 773 ==
LOC: YASAS 10:25 → Y3N 12:34
PROVIDERS: ADMIT Allergy & Immunology; ATTEND Allergy & Immunology
PROC: HZ2ZZZZ Detoxification Services for Substance Abuse Treatment (ICD-10-PCS; principal; 2019-06-08)
DX: F10.230 Alcohol dependence with withdrawal, uncomplicated (principal); F11.20 Opioid dependence, uncomplicated; F14.20 Cocaine dependence, uncomplicated; F12.20 Cannabis dependence, uncomplicated; F17.213 Nicotine dependence, cigarettes, with withdrawal; F19.24 Other psychoactive substance dependence with psychoactive substance-induced mood disorder; F41.9 Anxiety disorder, unspecified; F32.9 Major depressive disorder, single episode, unspecified; G47.00 Insomnia, unspecified; R94.31 Abnormal electrocardiogram [ECG] [EKG]; Z59.0 Homelessness
CPT/HCPCS: 36415; 80053; 85027; 86593; 93005; 93010

== ENCOUNTER 2019-06-09 12:13 | Emergency (ER) | payer OTHER ==
[2019-06-09 12:32] VITALS: PULSE 46; TEMP 97.6; BMI 25.8
[2019-06-09 13:10] LABS: BASO % 0.6 % (0-2.0); EOS % 0.3 % (0-4.5); HEMATOCRIT 46.5 % (35.4-49); HEMOGLOBIN 15.9 GM/dL (11.7-16.9); LYMPH % 18.5 % (8-40); MCH 30.8 pg (25.7-33.7); MCHC 34.1 g/dl (32.0-35.9); MEAN CELL VOLUME 90.4 fl (80-96); MEAN PLT VOLUME 8.7 fl (7.5-11.1); MONO % 7.6 % (3.8-10.2); PLATELET COUNT 194 K/MM3 (134-434); RBC 5.15 M/mm3 (4.00-5.60); RDW 14.2 % (11.9-15.9)
--- NOTE | 2019-06-09 13:21 | PDOC ---
History of Present Illness - General Chief Complaint: Irregular Heart Beat Stated Complaint: LOW HEART RATE - History of Present Illness Initial Comments: 06/09/19 13:15 HPI: 43 y/o M with hx of anxiety and depression presenting from [facility] for cardiac evaluation given concern for bradycardia and QT prolongation. Patient currently has no complaints. States last used K2, alcohol, and heroine 2 days ago and feels withdrawals coming on but received valium and methadone and feels well. Denies fever, PATTERSON, LH, chest pain, SOB, palptiations, abd pain, n/v, weakness. States he would like to be cleared and be sent back for rehab PMHx: as noted above ROS: as noted SHx: 1/2 ppd tobacco use; + alcohol use; heroine and K2 Allergies: NKDA ROS: GENERAL/CONSTITUTIONAL: No fever or chills. No weakness. HEAD, EYES, EARS, NOSE AND THROAT: No change in vision. No ear pain or discharge. No sore throat. CARDIOVASCULAR: No chest pain or shortness of breath RESPIRATORY: No cough, wheezing, or hemoptysis. GASTROINTESTINAL: No nausea, vomiting, diarrhea or constipation. GENITOURINARY: No dysuria, frequency, or change in urination. MUSCULOSKELETAL: No joint or muscle swelling or pain. No neck or back pain. SKIN: No rash NEUROLOGIC: No headache, vertigo, loss of consciousness, or change in strength/ sensation. ENDOCRINE: No increased thirst. No abnormal weight change HEMATOLOGIC/LYMPHATIC: No anemia, easy bleeding, or history of blood clots. ALLERGIC/IMMUNOLOGIC: No hives or skin allergy. PE: GENERAL: Awake, alert, and fully oriented, no acute distress HEAD: No signs of trauma, normocephalic, atraumatic EYES: EOMI, sclera anicteric, conjunctiva clear ENT: Auricles normal inspection, hearing grossly normal, nares patent, oropharynx clear without exudates. Moist mucosa NECK: Normal ROM, no lymphadenopathy LUNGS: No increased work of breathing, symmetrical chest rise, with scattered wheezing but moving air well HEART: bradycardia, regular rhythm, normal S1 and S2, no murmur, peripheral pulses 2+ and equal bilaterally. ABDOMEN: Soft, nondistended, nontender, normoactive bowel sounds. No guarding, no rebound. No masses. No CVAT MUSCULOSKELETAL: FROM NEUROLOGICAL: Cranial nerves II through XII grossly intact. Normal speech, normal gait, no focal sensorimotor deficits SKIN: Warm, Dry, normal turgor, no rashes or lesions noted Past History - Past Medical History Allergies/Adverse Reactions: Allergies Allergy/AdvReac Type Severity Reaction Status Date / Time No Known Allergies Allergy Verified 06/09/19 12:32 Home Medications: Ambulatory Orders Amlodipine Besylate [Norvasc -] 10 mg PO DAILY 06/08/19 Quetiapine Fumarate [Seroquel -] 50 mg PO HS 06/08/19 Anemia: No Asthma: No Cancer: No Cardiac Disorders: No CVA: No COPD: No CHF: No Dementia: No Diabetes: No GI Disorders: No Disorders: No HTN: Yes Hypercholesterolemia: No Kidney Stones: No Liver Disease: No Psychiatric Problems: Yes (anxiety and depression, drug and etoh abuse) Seizures: No Thyroid Disease: No - Surgical History Abdominal Surgery: No Appendectomy: No Cardiac Surgery: No Cholecystectomy: No Lung Surgery: No Neurologic Surgery: No Orthopedic Surgery: No - Reproductive History Testicular Surgery: No - Psycho Social/Smoking Cessation Hx Smoking History: Unknown if ever smoked Have you smoked in the past 12 months: Yes Number of Cigarettes Smoked Daily: 12 Cigars Per Day: 0 'Breaking Loose' booklet given: 06/08/19 Hx Alcohol Use: Yes (1 pint daily, tremors when he doesnt.) Drug/Substance Use Hx: No Substance Use Type: Alcohol, Cocaine, Heroin, Prescribed ([facility]) Hx Substance Use Treatment: Yes *Physical Exam - Vital Signs Last Vital Signs Temp Pulse Resp BP Pulse Ox 97.6 F 46 L 16 160/109 H 100 06/09/19 12:15 06/09/19 12:15 06/09/19 12:15 06/09/19 12:15 06/09/19 12:15 ED Treatment Course - LABORATORY CBC & Chemistry Diagram: 06/09/19 12:39 06/09/19 12:39 Medical Decision Making - Medical Decision Making 06/09/19 13:19 43 y/o M with hx of anxiety and depression presenting from [facility] for cardiac evaluation given concern for bradycardia and QT prolongation. HR 46 BP 160/109. PE with scattered wheezing but otherwise unremarkable -cbc, cmp, ekg 06/09/19 13:19 ekg: normal sinus, HR 46, nl intervals, qtc 453, no elma/d, p wave bigeminy, biphasic t waves in V2-V# and TWI v2-v5; patient without chest pain or any symptoms so less concern for ACS; compared to previous ekg and same findings present 06/09/19 13:21 labs wnl will DC to [facility] Discharge - Discharge Information Problems reviewed: Yes Clinical Impression/Diagnosis: Bradycardia Condition: Stable Disposition: HOME - Follow up/Referral - Patient Discharge Instructions Patient Printed Discharge Instructions: DI for Bradycardia Additional Instructions: Additional Instructions: Please return to the emergency department with any new or worsening symptoms or concerns including weakness, chest pain, shortness of breath, fainting. Please follow up with your primary care physician within 72 hours. Please continue detox and rehab instructions - Post Discharge Activity
[2019-06-09 13:23] LABS: ALBUMIN 3.8 g/dl (3.4-5.0); BILIRUBIN,TOTAL 0.8 mg/dL (0.2-1); BLOOD UREA NITROGEN 9.8 mg/dL (7-18); CREATININE 0.9 mg/dL (0.55-1.3); POTASSIUM 3.8 mmol/L (3.5-5.1); TOT PROT 8.1 g/dl (6.4-8.2)
[2019-06-09 14:05] VITALS: BP 150/88
--- NOTE | 2019-06-09 14:05 | PDOC ---
Documentation entered by Sherron Garcia SCRIBE, acting as scribe for Quincy García MD. Quincy García MD: This documentation has been prepared by the Jose shah Xhesika, SCRIBE, under my direction and personally reviewed by me in its entirety. I confirm that the documentation accurately reflects all work, treatment, procedures, and medical decision making performed by me. Attending Attestation - Resident Resident Name: Katelin Peters - ED Attending Attestation I have performed the following: I have examined & evaluated the patient, The case was reviewed & discussed with the resident, I agree w/resident's findings & plan, Exceptions are as noted - HPI HPI: 06/09/19 13:02 The patient is a 43 year old male with a significant PMH of etoh and heroin/ crack use who presents to the emergency department BIBA from [facility] for bradycardia and abnormal EKG while in [facility]. Pt is asymptomatic in the ED. Reports his heart rate is often on the "lower side". Pt states he has been drinking 1 pint of vodka for the past month. The patient denies chest pain, shortness of breath, headache, focal weakness/numbness and dizziness. Denies fever, chills, cough, nausea, vomiting, diarrhea and constipation. Allergies: NKDA - Physicial Exam PE: 06/09/19 13:02 GENERAL: Awake, alert, and fully oriented, in no acute distress EYES: PERRLA, EOMI, sclera anicteric, conjunctiva clear ENT: Auricles normal inspection, hearing grossly normal, nares patent, oropharynx clear without exudates. Moist mucosa NECK: Normal ROM, supple, no lymphadenopathy, JVD, or masses LUNGS: Breath sounds equal, clear to auscultation bilaterally. No wheezes, and no crackles HEART: Johan to 49, but regular, normal S1 and S2, no murmurs, rubs or gallops ABDOMEN: Soft, nontender, normoactive bowel sounds. No guarding, no rebound. No masses EXTREMITIES: Normal range of motion, no edema. No clubbing or cyanosis. No cords , erythema, or tenderness BACK: No midline spinal tenderness in cervical/thoracic/lumbar region NEUROLOGICAL: Normal speech, cranial nerves intact, negative pronator drift, 5/ 5 strength in all 4 extremities, normal sensation to light touch in all 4 extremities, normal cerebellar exam, normal gait SKIN: Warm, Dry, normal turgor, no rashes or lesions noted. - Medical Decision Making 06/09/19 14:00 43-year-old male with a history of polysubstance abuse presents to the emergency department with low heart rate. Patient is asymptomatic. Initially, he was hypertensive, however his blood pressure has improved to the 150s over 80s w/o intervention. Pt reports hx elevated BP, does not take meds. On review of EKG, patient is in sinus bradycardia. He has biphasic/inverted T waves from V2 to V6. When compared to an EKG from November 2018, the rate is almost identical as are the t wave changes. Exam wnl. Impression: sinus bradycardia with stable EKG Plan to DC pt to [facility] to complete detox. He is eager for return and clinically stable. Vital Signs - Vital Signs #1 Blood Pressure: 150/88 BP Location: Left Arm Heart Score/ECG Review #1 06/09/19 14:04 Twelve-lead EKG was performed and reviewed by me. Sinus bradycardia, rate 46. Normal axis. No ST elevations. Biphasic/inverted T waves from V2 to V6. When compared to EKG from November 2018, no significant changes.
--- NOTE | 2019-06-12 10:09 | EKG ---
Test Reason : Blood Pressure : / mmHG Vent. Rate : 046 BPM Atrial Rate : 046 BPM P-R Int : 154 ms QRS Dur : 102 ms QT Int : 518 ms P-R-T Axes : 058 056 035 degrees QTc Int : 453 ms SINUS BRADYCARDIA POSSIBLE LEFT ATRIAL ENLARGEMENT ABNORMAL ECG WHEN COMPARED WITH ECG OF 09-JUN-2019 10:00, NO SIGNIFICANT CHANGE WAS FOUND Confirmed by Devaughn Savage MD ([id number]) on 06/12/2019 10:09:29 AM Referred By: Confirmed By:Devaughn Savage MD
== END 2019-06-09 16:24 | disposition home or self-care (01) ==
LOC: JER 12:13
DX: R00.1 Bradycardia, unspecified (principal); I10 Essential (primary) hypertension; F41.8 Other specified anxiety disorders; F32.9 Major depressive disorder, single episode, unspecified; F10.10 Alcohol abuse, uncomplicated; F11.10 Opioid abuse, uncomplicated; F17.210 Nicotine dependence, cigarettes, uncomplicated; Z59.0 Homelessness
CPT/HCPCS: 36415; 80053; 82550; 84484; 85025; 93005; 93010; 99284-25

== ENCOUNTER 2019-06-11 14:35 | Inpatient (IN) | payer OTHER ==
--- NOTE | 2019-06-11 11:26 | HP ---
[facility] Rehab Assess/Revision - Admission History Admitted to Rehab from: [facility] Date of Admission to Rehab: 06/11/19 - Findings Detox History & Physical reviewed: Yes Concur with findings: Yes Comments/Additional Findings: transferred from detox to rehab admission as per protocol Inpatient Rehab Admission - Rehab Decision to Admit Inpatient rehab admission?: Yes - Initial Determination Are CD services needed?: Yes Free of communicable disease: Yes Not in need of hospitalization: Yes - Rehab Admission Criteria Previous failed treatment: Yes Poor recovery environment: Yes Comorbidities: Yes Lacks judgement: Yes Patient is meeting Inpatient Rehab admission criteria:: Yes
[~2019-06-11 14:35] MED LIST: ACETAMINOPHEN 325 MG TABLET (FP) PO PRN; IBUPROFEN 400 MG TABLET (FP) PO PRN; LOPERAMIDE HCL 2 MG CAPSULE PO PRN; MAG HYDROX/AL HYDROX/SIMETH 30 ML UNIT-DOSE CUP PO PRN; MAGNESIUM CITRATE 300 ML BOTTLE PO PRN; MENTHOL/PHENOL 1 EACH UD MM PRN; NICOTINE 7 MG/24 HOURS TOPICAL PATCH TD PRN; P-EPHED 60MG/TRIPROLIDI 2.5MG TABLET PO PRN; guaiFENesin 200 MG/10 ML 10 ML UNIT-DOSE CUPS PO PRN
--- NOTE | 2019-06-11 18:38 | CONSULT ---
[facility] Psych[facility] Consult - Data Date of interview: 06/11/19 Admission source: [facility]
--- NOTE | 2019-06-11 18:42 | PN ---
[facility] Progress Note Note: Psychiatry Attending's note : Approached for psychiatric interview. Patient declines. Obseerved as alert and fully oriented. Resting comfortably in his room. No complaints offered. Seroquel discontinued. Reason : noted report of prolonged QT. Psychiatry-Liaison will follow as needed.
[2019-06-11] MEDS: THIAMINE HCL 100 MG TABLET (FP) PO SCH (21:22)
[2019-06-11] MEDS ORDERED: QUEtiapine FUMARATE 50 MG TABLET PO ONE (22:00)
--- NOTE | 2019-06-12 07:29 | CONSULT ---
[facility] Psychiatric Consult - Data Date of interview: 06/12/19 Admission source: 3N Identifying data: Mr Mckeon is a 43 years old male, unemployed receiving food stamp, homeless admitted from detox on 06/11/19 for inpatient rehabilitation for alcohol, opioid and cocaine Substance Abuse History: Reports history of alcohol, heroin and cocaine use. Refer to addiction counselor's summary for further information Medical History: significant for hypertension. Patient is on methadone 150 mg/ day from [facility]. Smokes 12 cigarettes daily Psychiatric History: Patient was referred from detox where he saw Dr Teixeira. History remains consistent. He reports that his first psychiatric contact occured in October 2018 while admitted to [facility]. He said that he saw a psychiatrist and was prescribed Trazodone 100 mg/hs, Clonidine and Hydroxizine for depression, anxiety and sleep. Reports that in late 2018, he was admitted to [facility] for depression. He stayed there foe 2 weeks and prescribed Seroquel 50 mg/hs. Told procedure writer that he was referred to [facility] mental health clinic on discharge but failed to keep his appointment since he relapsed. When seen by Dr Teixeira on 06/08/19 during his recent admission to detox, he was continued on Seroquel 50 mg/hs. Denies previous suicidal attempt. At present, denies experiencing deprreesive, anxiety symptoms, S/H ideations. However, reports sleeping poorly. requests to continue Seroquel 50 mg/hs for insomnia. Physical/Sexual Abuse/Trauma History: Denies history of abuse as a child or DV relationship as an adult Mental Status Exam - Mental Status Exam Alert and Oriented to: Time, Place, Person Cognitive Function: Fair Patient Appearance: Disheveled Mood: Hopeful, Euthymic Patient Behavior: Cooperative Speech Pattern: Clear Voice Loudness: Normal Hallucinations: Denies Suicidal Ideation: Denies Homicidal Ideation: Denies Insight/Judgement: Fair Sleep: Poorly Appetite: Fair Muscle strength/Tone: Normal Gait/Station: Normal Psychiatric Findings - Problem List ([place] 1, 2,3) (1) Depressive disorder Current Visit: Yes Status: Chronic (2) MDD (major depressive disorder) Current Visit: Yes Status: Ruled-out (3) Substance induced mood disorder Current Visit: Yes Status: Ruled-out (4) Substance-induced sleep disorder Current Visit: Yes Status: Acute (5) Alcohol dependence Current Visit: Yes Status: Acute (6) Cocaine dependence Current Visit: No Status: Acute Qualifiers: Substance use status: uncomplicated Qualified Code(s): F14.20 - Cocaine dependence, uncomplicated (7) Opioid dependence on agonist therapy Current Visit: No Status: Chronic (8) Nicotine dependence Current Visit: No Status: Chronic Qualifiers: Nicotine product type: cigarettes Substance use status: in withdrawal Qualified Code(s): F17.213 - Nicotine dependence, cigarettes, with withdrawal (9) HTN (hypertension) Current Visit: Yes Status: Acute - Initial Treatment Plan Initial Treatment Plan: 1) Continue Seroquel 50 mg po HS for insomnia. 2) Continue inpatient rehabilitation
[2019-06-12] MEDS ORDERED: METHADONE HCL 10 MG TABLET PO ONE (10:25)
[2019-06-12] MEDS: amLODIPine BESYLATE 10 MG TABLET (FP) PO SCH (10:26)
[2019-06-12] MEDS: PRENATAL VITAMINS W/ FOLIC ACID TABLET (FP) PO SCH (10:26)
[2019-06-12] MEDS ORDERED: METHADONE 120 MG, METHADONE 30 MG PO ONE (10:35)
[2019-06-12] MEDS ORDERED: METHADONE HCL 10 MG TABLET ONE (10:50)
[2019-06-12] MEDS ORDERED: METHADONE HCL 40 MG DISPERSABLE TABLET ONE (10:51)
[2019-06-12] MEDS: THIAMINE HCL 100 MG TABLET (FP) PO SCH (21:22)
[2019-06-12] MEDS: QUEtiapine FUMARATE 50 MG TABLET PO SCH (21:23)
[2019-06-13] MEDS ORDERED: METHADONE HCL 40 MG DISPERSABLE TABLET ONE (05:53)
[2019-06-13] MEDS ORDERED: METHADONE HCL 10 MG TABLET ONE (05:53)
[2019-06-13] MEDS ORDERED: METHADONE HCL 10 MG TABLET PO SCH (06:00)
[2019-06-13] MEDS: METHADONE 120 MG, METHADONE 30 MG PO SCH (06:29)
[2019-06-13] MEDS: amLODIPine BESYLATE 10 MG TABLET (FP) PO SCH (10:25)
[2019-06-13] MEDS: PRENATAL VITAMINS W/ FOLIC ACID TABLET (FP) PO SCH (10:25)
[2019-06-13] MEDS: QUEtiapine FUMARATE 50 MG TABLET PO SCH (21:16)
[2019-06-13] MEDS: THIAMINE HCL 100 MG TABLET (FP) PO SCH (21:16)
[2019-06-14] MEDS ORDERED: METHADONE HCL 10 MG TABLET ONE (06:36)
[2019-06-14] MEDS: METHADONE 120 MG, METHADONE 30 MG PO SCH (06:37)
[2019-06-14] MEDS ORDERED: METHADONE HCL 40 MG DISPERSABLE TABLET ONE (06:37)
[2019-06-14] MEDS: amLODIPine BESYLATE 10 MG TABLET (FP) PO SCH (10:57)
[2019-06-14] MEDS: PRENATAL VITAMINS W/ FOLIC ACID TABLET (FP) PO SCH (10:57)
--- NOTE | 2019-06-14 12:08 | PN ---
[facility] Progress Note Note: Pt is a 43 y/o male with a hx of ELYSE-alcohol,heroin,cocaine admitted to rehab after detox on 3 on 06/11/19. Pt reports he has no primary care provider and "need to get one". PMHx: Denies Psych Hx:Depression/ Anxiety d/o, Insomnia. 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 A/P ELYSE s/p detox new rehab pt cracked web in toes Maintain safety increase po fluids Bacitracin ointment apply to affected foot area as directed. was seen by psych consult. follow up with counselor for CD aftercare planning.
[2019-06-14] MEDS: BACITRACIN 15 GM TUBE TOPICAL OINTMENT TP SCH ×2 (14:47→21:15)
[2019-06-14] MEDS: THIAMINE HCL 100 MG TABLET (FP) PO SCH (21:15)
[2019-06-14] MEDS: QUEtiapine FUMARATE 50 MG TABLET PO SCH (21:15)
[2019-06-15] MEDS ORDERED: METHADONE HCL 10 MG TABLET ONE (06:25)
[2019-06-15] MEDS ORDERED: METHADONE HCL 40 MG DISPERSABLE TABLET ONE (06:25)
[2019-06-15] MEDS: METHADONE 120 MG, METHADONE 30 MG PO SCH (06:31)
[2019-06-15] MEDS: amLODIPine BESYLATE 10 MG TABLET (FP) PO SCH (10:14)
[2019-06-15] MEDS: PRENATAL VITAMINS W/ FOLIC ACID TABLET (FP) PO SCH (10:14)
[2019-06-15] MEDS: BACITRACIN 15 GM TUBE TOPICAL OINTMENT TP SCH ×2 (10:15→21:35)
[2019-06-15] MEDS: NICOTINE POLACRILEX 2 MG GUM BUC PRN ×2 (10:16→21:35)
[2019-06-15] MEDS: THIAMINE HCL 100 MG TABLET (FP) PO SCH (21:35)
[2019-06-15] MEDS: QUEtiapine FUMARATE 50 MG TABLET PO SCH (21:35)
[2019-06-16] MEDS ORDERED: METHADONE HCL 40 MG DISPERSABLE TABLET ONE (06:00)
[2019-06-16] MEDS ORDERED: METHADONE HCL 10 MG TABLET ONE (06:00)
[2019-06-16] MEDS: METHADONE 120 MG, METHADONE 30 MG PO SCH (06:57)
[2019-06-16] MEDS: amLODIPine BESYLATE 10 MG TABLET (FP) PO SCH (10:02)
[2019-06-16] MEDS: PRENATAL VITAMINS W/ FOLIC ACID TABLET (FP) PO SCH (10:02)
[2019-06-16] MEDS: BACITRACIN 15 GM TUBE TOPICAL OINTMENT TP SCH ×2 (10:02→21:17)
[2019-06-16] MEDS: NICOTINE POLACRILEX 2 MG GUM BUC PRN ×4 (10:03→21:18)
[2019-06-16] MEDS: THIAMINE HCL 100 MG TABLET (FP) PO SCH (21:17)
[2019-06-16] MEDS: QUEtiapine FUMARATE 50 MG TABLET PO SCH (21:17)
[2019-06-17] MEDS ORDERED: METHADONE HCL 10 MG TABLET ONE (04:22)
[2019-06-17] MEDS ORDERED: METHADONE HCL 40 MG DISPERSABLE TABLET ONE (04:22)
[2019-06-17] MEDS: METHADONE 120 MG, METHADONE 30 MG PO SCH (06:36)
[2019-06-17] MEDS: NICOTINE POLACRILEX 2 MG GUM BUC PRN ×2 (06:56→09:26)
[2019-06-17] MEDS: amLODIPine BESYLATE 10 MG TABLET (FP) PO SCH (09:26)
[2019-06-17] MEDS: PRENATAL VITAMINS W/ FOLIC ACID TABLET (FP) PO SCH (09:26)
[2019-06-17] MEDS: BACITRACIN 15 GM TUBE TOPICAL OINTMENT TP SCH ×2 (09:27→21:12)
[2019-06-17] MEDS: THIAMINE HCL 100 MG TABLET (FP) PO SCH (21:12)
[2019-06-17] MEDS: QUEtiapine FUMARATE 50 MG TABLET PO SCH (21:12)
[2019-06-18] MEDS: METHADONE 120 MG, METHADONE 30 MG PO SCH (07:02)
[2019-06-18] MEDS ORDERED: METHADONE HCL 40 MG DISPERSABLE TABLET ONE (07:02)
[2019-06-18] MEDS ORDERED: METHADONE HCL 10 MG TABLET ONE (07:02)
[2019-06-18] MEDS: amLODIPine BESYLATE 10 MG TABLET (FP) PO SCH (10:06)
[2019-06-18] MEDS: NICOTINE POLACRILEX 2 MG GUM BUC PRN ×2 (10:06→17:25)
[2019-06-18] MEDS: PRENATAL VITAMINS W/ FOLIC ACID TABLET (FP) PO SCH (10:06)
[2019-06-18] MEDS: BACITRACIN 15 GM TUBE TOPICAL OINTMENT TP SCH ×2 (10:06→21:08)
[2019-06-18] MEDS: MELATONIN 5 MG TABLETS PO PRN (21:09)
[2019-06-18] MEDS: THIAMINE HCL 100 MG TABLET (FP) PO SCH (21:09)
[2019-06-18] MEDS: QUEtiapine FUMARATE 50 MG TABLET PO SCH (21:09)
[2019-06-19] MEDS ORDERED: METHADONE HCL 40 MG DISPERSABLE TABLET ONE (05:59)
[2019-06-19] MEDS ORDERED: METHADONE HCL 10 MG TABLET ONE (05:59)
[2019-06-19] MEDS ORDERED: METHADONE HCL 10 MG TABLET PO SCH (06:00)
[2019-06-19] MEDS: METHADONE 120 MG, METHADONE 30 MG PO SCH (06:18)
[2019-06-19] MEDS: PRENATAL VITAMINS W/ FOLIC ACID TABLET (FP) PO SCH (10:04)
[2019-06-19] MEDS: BACITRACIN 15 GM TUBE TOPICAL OINTMENT TP SCH ×2 (10:04→21:46)
[2019-06-19] MEDS: amLODIPine BESYLATE 10 MG TABLET (FP) PO SCH (10:05)
[2019-06-19] MEDS: QUEtiapine FUMARATE 50 MG TABLET PO SCH (21:38)
[2019-06-19] MEDS: THIAMINE HCL 100 MG TABLET (FP) PO SCH (21:39)
[2019-06-19] MEDS: MELATONIN 5 MG TABLETS PO PRN (21:39)
[2019-06-20] MEDS ORDERED: METHADONE HCL 10 MG TABLET ONE (04:57)
[2019-06-20] MEDS ORDERED: METHADONE HCL 40 MG DISPERSABLE TABLET ONE (04:58)
[2019-06-20] MEDS: METHADONE 120 MG, METHADONE 30 MG PO SCH (06:35)
[2019-06-20] MEDS: amLODIPine BESYLATE 10 MG TABLET (FP) PO SCH (10:10)
[2019-06-20] MEDS: BACITRACIN 15 GM TUBE TOPICAL OINTMENT TP SCH ×2 (10:10→21:40)
[2019-06-20] MEDS: PRENATAL VITAMINS W/ FOLIC ACID TABLET (FP) PO SCH (10:10)
[2019-06-20] MEDS: THIAMINE HCL 100 MG TABLET (FP) PO SCH (21:15)
[2019-06-20] MEDS: QUEtiapine FUMARATE 50 MG TABLET PO SCH (21:15)
[2019-06-20] MEDS: MELATONIN 5 MG TABLETS PO PRN (21:15)
[2019-06-21] MEDS ORDERED: METHADONE HCL 40 MG DISPERSABLE TABLET ONE (05:40)
[2019-06-21] MEDS ORDERED: METHADONE HCL 10 MG TABLET ONE (05:40)
[2019-06-21] MEDS: METHADONE 120 MG, METHADONE 30 MG PO SCH (06:06)
[2019-06-21] MEDS: BACITRACIN 15 GM TUBE TOPICAL OINTMENT TP SCH ×2 (09:18→21:34)
[2019-06-21] MEDS: amLODIPine BESYLATE 10 MG TABLET (FP) PO SCH (09:18)
[2019-06-21] MEDS: PRENATAL VITAMINS W/ FOLIC ACID TABLET (FP) PO SCH (09:18)
--- NOTE | 2019-06-21 09:37 | PN ---
S Progress Note Note: Patient reports sleeping poorly despite taking Seroquel 50 mg/hs. Requests for Seroquel dose to be increased to 100 mg/hs
[2019-06-21] MEDS: NICOTINE POLACRILEX 2 MG GUM BUC PRN ×2 (10:09→16:56)
[2019-06-21] MEDS: MAGNESIUM HYDROX 2400MG/30ML ORAL SUSPENSION 30 ML CUP PO PRN (18:35)
[2019-06-21] MEDS: MELATONIN 5 MG TABLETS PO PRN (21:33)
[2019-06-21] MEDS: QUEtiapine FUMARATE 100 MG TABLET (FP) PO SCH (21:33)
[2019-06-21] MEDS: THIAMINE HCL 100 MG TABLET (FP) PO SCH (21:33)
[2019-06-22] MEDS ORDERED: METHADONE HCL 10 MG TABLET ONE (04:24)
[2019-06-22] MEDS ORDERED: METHADONE HCL 40 MG DISPERSABLE TABLET ONE (04:24)
[2019-06-22] MEDS: METHADONE 120 MG, METHADONE 30 MG PO SCH (06:58)
[2019-06-22] MEDS: amLODIPine BESYLATE 10 MG TABLET (FP) PO SCH (10:15)
[2019-06-22] MEDS: PRENATAL VITAMINS W/ FOLIC ACID TABLET (FP) PO SCH (10:15)
[2019-06-22] MEDS: BACITRACIN 15 GM TUBE TOPICAL OINTMENT TP SCH ×2 (10:16→21:11)
[2019-06-22] MEDS: QUEtiapine FUMARATE 100 MG TABLET (FP) PO SCH (21:11)
[2019-06-22] MEDS: THIAMINE HCL 100 MG TABLET (FP) PO SCH (21:11)
[2019-06-22] MEDS: MELATONIN 5 MG TABLETS PO PRN (21:11)
[2019-06-23] MEDS ORDERED: METHADONE HCL 10 MG TABLET ONE (06:17)
[2019-06-23] MEDS: METHADONE 120 MG, METHADONE 30 MG PO SCH (06:18)
[2019-06-23] MEDS ORDERED: METHADONE HCL 40 MG DISPERSABLE TABLET ONE (06:18)
[2019-06-23] MEDS: PRENATAL VITAMINS W/ FOLIC ACID TABLET (FP) PO SCH (10:12)
[2019-06-23] MEDS: amLODIPine BESYLATE 10 MG TABLET (FP) PO SCH (10:12)
[2019-06-23] MEDS: NICOTINE POLACRILEX 2 MG GUM BUC PRN (10:14)
[2019-06-23] MEDS: MAGNESIUM HYDROX 2400MG/30ML ORAL SUSPENSION 30 ML CUP PO PRN (10:15)
[2019-06-23] MEDS: BACITRACIN 15 GM TUBE TOPICAL OINTMENT TP SCH ×2 (11:21→21:46)
[2019-06-23] MEDS: MELATONIN 5 MG TABLETS PO PRN (21:46)
[2019-06-23] MEDS: QUEtiapine FUMARATE 100 MG TABLET (FP) PO SCH (21:46)
[2019-06-23] MEDS: THIAMINE HCL 100 MG TABLET (FP) PO SCH (21:46)
[2019-06-24] MEDS ORDERED: METHADONE HCL 10 MG TABLET ONE (04:45)
[2019-06-24] MEDS ORDERED: METHADONE HCL 40 MG DISPERSABLE TABLET ONE (04:46)
[2019-06-24] MEDS: METHADONE 120 MG, METHADONE 30 MG PO SCH (06:10)
[2019-06-24] MEDS: PRENATAL VITAMINS W/ FOLIC ACID TABLET (FP) PO SCH (09:48)
[2019-06-24] MEDS: BACITRACIN 15 GM TUBE TOPICAL OINTMENT TP SCH ×2 (09:49→21:07)
[2019-06-24] MEDS: amLODIPine BESYLATE 10 MG TABLET (FP) PO SCH (09:49)
[2019-06-24] MEDS: MELATONIN 5 MG TABLETS PO PRN (21:06)
[2019-06-24] MEDS: THIAMINE HCL 100 MG TABLET (FP) PO SCH (21:07)
[2019-06-24] MEDS: QUEtiapine FUMARATE 100 MG TABLET (FP) PO SCH (21:07)
[2019-06-25] MEDS ORDERED: METHADONE HCL 10 MG TABLET ONE (05:32)
[2019-06-25] MEDS ORDERED: METHADONE HCL 40 MG DISPERSABLE TABLET ONE (05:32)
[2019-06-25] MEDS: METHADONE 120 MG, METHADONE 30 MG PO SCH (05:54)
[2019-06-25] MEDS ORDERED: METHADONE HCL 10 MG TABLET PO SCH (06:00)
[2019-06-25] MEDS: PRENATAL VITAMINS W/ FOLIC ACID TABLET (FP) PO SCH (09:58)
[2019-06-25] MEDS: amLODIPine BESYLATE 10 MG TABLET (FP) PO SCH (09:58)
[2019-06-25] MEDS: BACITRACIN 15 GM TUBE TOPICAL OINTMENT TP SCH ×2 (09:58→21:16)
[2019-06-25] MEDS ORDERED: SODIUM PHOSPHATE/NA BIPHOS 133 ML ENEMA PR ONE (10:01)
[2019-06-25] MEDS: NICOTINE POLACRILEX 2 MG GUM BUC PRN (10:04)
--- NOTE | 2019-06-25 10:07 | PN ---
S Progress Note Note: Pt reports severe hard stool, rectal discomfort with bleeding on defecation and citroma and prune juice not effective. Requesting other relief. Vital Signs - 24 hr 06/25/19 06/25/19 03:32 06:47 Temperature 97.9 F Pulse Rate 58 L Respiratory 16 18 Rate Blood Pressure 118/78 Alert o x 3 nad oob ambulating with steady gait. A/P Severe constipation MMTP pt Fleet enema x1 now Start Colace 300 mg po HS increase po fluids.
[2019-06-25] MEDS: DOCUSATE SODIUM 100 MG CAPSULE (FP) PO SCH (21:15)
[2019-06-25] MEDS: QUEtiapine FUMARATE 100 MG TABLET (FP) PO SCH (21:16)
[2019-06-25] MEDS: THIAMINE HCL 100 MG TABLET (FP) PO SCH (21:16)
[2019-06-25] MEDS: MELATONIN 5 MG TABLETS PO PRN (21:56)
[2019-06-26] MEDS ORDERED: METHADONE HCL 10 MG TABLET ONE (05:43)
[2019-06-26] MEDS ORDERED: METHADONE HCL 40 MG DISPERSABLE TABLET ONE (05:43)
[2019-06-26] MEDS: METHADONE 120 MG, METHADONE 30 MG PO SCH (06:21)
[2019-06-26] MEDS: PRENATAL VITAMINS W/ FOLIC ACID TABLET (FP) PO SCH (10:14)
[2019-06-26] MEDS: BACITRACIN 15 GM TUBE TOPICAL OINTMENT TP SCH ×2 (10:14→21:24)
[2019-06-26] MEDS: NICOTINE POLACRILEX 2 MG GUM BUC PRN (10:14)
[2019-06-26] MEDS: amLODIPine BESYLATE 10 MG TABLET (FP) PO SCH (10:14)
--- NOTE | 2019-06-26 11:00 | PN ---
[facility] Progress Note Note: Patient reports feeling anxious. Will order Vistaril 50 mg po Q 4hrs prn for anxiety
[2019-06-26] MEDS: hydrOXYzine PAMOATE 50 MG CAPSULE (FP) PO PRN (11:09)
[2019-06-26] MEDS ORDERED: BISACODYL 10 MG SUPP.RECT RC ONE (14:44)
--- NOTE | 2019-06-26 14:55 | PN ---
[facility] Progress Note Note: pt still c/o hard stool(rock-like) and rectal pain/pressure. Reports previous treatments were not effective. Reports he is passing just gas and a few hard stools. Reports incomplete evacuation. Denies bloating today but states he decreased food intake to avoid bloating. Pt on methadone 150 mg po daily. Pt pt received fleet enema yesterday and started on Colace 300 mg po HS last night. Vital Signs - 24 hr 06/26/19 06/26/19 06/26/19 00:30 03:30 07:16 Temperature 97.9 F Pulse Rate 58 L Respiratory 18 18 18 Rate Blood Pressure 110/70 06/26/19 10:00 Temperature Pulse Rate 69 Respiratory Rate Blood Pressure 113/72 Alert o x 3 nad oob ambulating with steady gait abdomen:soft, hypoactive +bs, slight generalized tenderness to palp, nd. extremities;no edema. A/P OIC Maintain safety increase po fluids Dulcolax supp. 10mg BID x 2 doses, first one now. Re-evaluate pt. Xray abdomen on 06/27/19 to r/o fecal impaction/obstruction.
[2019-06-26] MEDS: QUEtiapine FUMARATE 100 MG TABLET (FP) PO SCH (21:19)
[2019-06-26] MEDS: DOCUSATE SODIUM 100 MG CAPSULE (FP) PO SCH (21:19)
[2019-06-26] MEDS: THIAMINE HCL 100 MG TABLET (FP) PO SCH (21:19)
[2019-06-26] MEDS: MELATONIN 5 MG TABLETS PO PRN (21:21)
[2019-06-26] MEDS: HYDROCORTISONE 2.5% TOPICAL CREAM 30 GM TUBE TP SCH (21:52)
[2019-06-26] MEDS: BISACODYL 10 MG SUPP.RECT RC SCH (21:53)
[2019-06-27] MEDS ORDERED: METHADONE HCL 10 MG TABLET ONE (05:21)
[2019-06-27] MEDS ORDERED: METHADONE HCL 40 MG DISPERSABLE TABLET ONE (05:22)
[2019-06-27] MEDS: METHADONE 120 MG, METHADONE 30 MG PO SCH (06:23)
[2019-06-27] MEDS: hydrOXYzine PAMOATE 50 MG CAPSULE (FP) PO PRN ×3 (06:24→21:11)
[2019-06-27] MEDS: BACITRACIN 15 GM TUBE TOPICAL OINTMENT TP SCH ×2 (10:16→22:36)
[2019-06-27] MEDS: HYDROCORTISONE 2.5% TOPICAL CREAM 30 GM TUBE TP SCH ×2 (10:17→21:11)
[2019-06-27] MEDS: BISACODYL 10 MG SUPP.RECT RC SCH (10:18)
[2019-06-27] MEDS: amLODIPine BESYLATE 10 MG TABLET (FP) PO SCH (10:18)
[2019-06-27] MEDS: PRENATAL VITAMINS W/ FOLIC ACID TABLET (FP) PO SCH (10:18)
[2019-06-27] MEDS: NICOTINE POLACRILEX 2 MG GUM BUC PRN (11:16)
--- NOTE | 2019-06-27 16:06 | PN ---
[facility] Progress Note Note: Pt reports he moved his bowels twice since last night and declined to go forward with abdominal xray stating "no need, I went already". Vital Signs - 24 hr 06/27/19 06/27/19 06/27/19 00:30 03:23 03:30 Temperature Pulse Rate Respiratory 18 18 18 Rate Blood Pressure 06/27/19 06:55 Temperature 98.6 F Pulse Rate 61 Respiratory 18 Rate Blood Pressure 106/71 Alert o x 3 nad oob ambulating with steady gait. Increase po fluids continue Colace Metamucil TId as directed
[2019-06-27] MEDS: DOCUSATE SODIUM 100 MG CAPSULE (FP) PO SCH (21:10)
[2019-06-27] MEDS: QUEtiapine FUMARATE 100 MG TABLET (FP) PO SCH (21:10)
[2019-06-27] MEDS: MELATONIN 5 MG TABLETS PO PRN (21:11)
[2019-06-27] MEDS: THIAMINE HCL 100 MG TABLET (FP) PO SCH (21:11)
[2019-06-27] MEDS: PSYLLIUM 5.85 GM PACKET PO SCH (22:47)
[2019-06-28] MEDS ORDERED: METHADONE HCL 40 MG DISPERSABLE TABLET ONE (05:19)
[2019-06-28] MEDS ORDERED: METHADONE HCL 10 MG TABLET ONE (05:19)
[2019-06-28] MEDS: hydrOXYzine PAMOATE 50 MG CAPSULE (FP) PO PRN ×3 (06:20→17:38)
[2019-06-28] MEDS: METHADONE 120 MG, METHADONE 30 MG PO SCH (06:20)
[2019-06-28] MEDS: PSYLLIUM 5.85 GM PACKET PO SCH ×3 (06:20→21:19)
[2019-06-28] MEDS: HYDROCORTISONE 2.5% TOPICAL CREAM 30 GM TUBE TP SCH ×2 (10:05→21:17)
[2019-06-28] MEDS: amLODIPine BESYLATE 10 MG TABLET (FP) PO SCH (10:05)
[2019-06-28] MEDS: PRENATAL VITAMINS W/ FOLIC ACID TABLET (FP) PO SCH (10:05)
[2019-06-28] MEDS: BACITRACIN 15 GM TUBE TOPICAL OINTMENT TP SCH ×2 (10:06→21:18)
[2019-06-28] MEDS: DOCUSATE SODIUM 100 MG CAPSULE (FP) PO SCH (21:18)
[2019-06-28] MEDS: QUEtiapine FUMARATE 100 MG TABLET (FP) PO SCH (21:19)
[2019-06-28] MEDS: THIAMINE HCL 100 MG TABLET (FP) PO SCH (21:19)
[2019-06-28] MEDS: MELATONIN 5 MG TABLETS PO PRN (21:19)
[2019-06-29] MEDS ORDERED: METHADONE HCL 40 MG DISPERSABLE TABLET ONE (04:12)
[2019-06-29] MEDS ORDERED: METHADONE HCL 10 MG TABLET ONE (04:12)
[2019-06-29] MEDS: hydrOXYzine PAMOATE 50 MG CAPSULE (FP) PO PRN ×4 (05:57→21:10)
[2019-06-29] MEDS: METHADONE 120 MG, METHADONE 30 MG PO SCH (05:57)
[2019-06-29] MEDS: PSYLLIUM 5.85 GM PACKET PO SCH ×3 (05:59→21:11)
[2019-06-29] MEDS: amLODIPine BESYLATE 10 MG TABLET (FP) PO SCH (10:14)
[2019-06-29] MEDS: PRENATAL VITAMINS W/ FOLIC ACID TABLET (FP) PO SCH (10:14)
[2019-06-29] MEDS: NICOTINE POLACRILEX 2 MG GUM BUC PRN ×2 (10:15→16:27)
[2019-06-29] MEDS: HYDROCORTISONE 2.5% TOPICAL CREAM 30 GM TUBE TP SCH ×2 (10:15→21:11)
[2019-06-29] MEDS: BACITRACIN 15 GM TUBE TOPICAL OINTMENT TP SCH ×2 (10:17→21:11)
[2019-06-29] MEDS: MELATONIN 5 MG TABLETS PO PRN (21:09)
[2019-06-29] MEDS: THIAMINE HCL 100 MG TABLET (FP) PO SCH (21:09)
[2019-06-29] MEDS: DOCUSATE SODIUM 100 MG CAPSULE (FP) PO SCH (21:09)
[2019-06-29] MEDS: QUEtiapine FUMARATE 100 MG TABLET (FP) PO SCH (21:09)
[2019-06-30] MEDS ORDERED: METHADONE HCL 40 MG DISPERSABLE TABLET ONE (04:33)
[2019-06-30] MEDS ORDERED: METHADONE HCL 10 MG TABLET ONE (04:33)
[2019-06-30] MEDS: METHADONE 120 MG, METHADONE 30 MG PO SCH (06:38)
[2019-06-30] MEDS: PSYLLIUM 5.85 GM PACKET PO SCH ×3 (06:40→21:38)
[2019-06-30] MEDS: hydrOXYzine PAMOATE 50 MG CAPSULE (FP) PO PRN ×3 (06:40→21:40)
[2019-06-30] MEDS: PRENATAL VITAMINS W/ FOLIC ACID TABLET (FP) PO SCH (11:19)
[2019-06-30] MEDS: HYDROCORTISONE 2.5% TOPICAL CREAM 30 GM TUBE TP SCH ×2 (11:19→21:37)
[2019-06-30] MEDS: amLODIPine BESYLATE 10 MG TABLET (FP) PO SCH (11:20)
[2019-06-30] MEDS: BACITRACIN 15 GM TUBE TOPICAL OINTMENT TP SCH ×2 (11:20→21:38)
[2019-06-30] MEDS: DOCUSATE SODIUM 100 MG CAPSULE (FP) PO SCH (21:39)
[2019-06-30] MEDS: MELATONIN 5 MG TABLETS PO PRN (21:39)
[2019-06-30] MEDS: THIAMINE HCL 100 MG TABLET (FP) PO SCH (21:39)
[2019-06-30] MEDS: QUEtiapine FUMARATE 100 MG TABLET (FP) PO SCH (21:39)
[2019-07-01] MEDS ORDERED: METHADONE HCL 10 MG TABLET ONE (04:16)
[2019-07-01] MEDS ORDERED: METHADONE HCL 40 MG DISPERSABLE TABLET ONE (04:17)
[2019-07-01] MEDS: METHADONE 120 MG, METHADONE 30 MG PO SCH (06:20)
[2019-07-01] MEDS: PSYLLIUM 5.85 GM PACKET PO SCH ×3 (06:22→21:29)
[2019-07-01] MEDS: hydrOXYzine PAMOATE 50 MG CAPSULE (FP) PO PRN ×3 (06:22→21:31)
[2019-07-01] MEDS: NICOTINE POLACRILEX 2 MG GUM BUC PRN ×3 (09:37→17:10)
[2019-07-01] MEDS: PRENATAL VITAMINS W/ FOLIC ACID TABLET (FP) PO SCH (09:37)
[2019-07-01] MEDS: amLODIPine BESYLATE 10 MG TABLET (FP) PO SCH (09:37)
[2019-07-01] MEDS: BACITRACIN 15 GM TUBE TOPICAL OINTMENT TP SCH ×2 (09:37→21:29)
[2019-07-01] MEDS: HYDROCORTISONE 2.5% TOPICAL CREAM 30 GM TUBE TP SCH ×2 (09:39→21:28)
[2019-07-01] MEDS: DOCUSATE SODIUM 100 MG CAPSULE (FP) PO SCH (21:29)
[2019-07-01] MEDS: THIAMINE HCL 100 MG TABLET (FP) PO SCH (21:29)
[2019-07-01] MEDS: QUEtiapine FUMARATE 100 MG TABLET (FP) PO SCH (21:30)
[2019-07-01] MEDS: MELATONIN 5 MG TABLETS PO PRN (21:30)
[2019-07-02] MEDS ORDERED: METHADONE HCL 10 MG TABLET ONE (04:58)
[2019-07-02] MEDS ORDERED: METHADONE HCL 40 MG DISPERSABLE TABLET ONE (04:59)
[2019-07-02] MEDS: METHADONE 120 MG, METHADONE 30 MG PO SCH (05:51)
[2019-07-02] MEDS: PSYLLIUM 5.85 GM PACKET PO SCH ×3 (05:51→21:12)
[2019-07-02] MEDS: hydrOXYzine PAMOATE 50 MG CAPSULE (FP) PO PRN ×3 (05:52→21:11)
[2019-07-02 07:21] VITALS: TEMP 98.2
[2019-07-02] MEDS: NICOTINE POLACRILEX 2 MG GUM BUC PRN ×2 (09:19→13:44)
--- NOTE | 2019-07-02 09:56 | DS ---
[facility] Rehab Discharge Summary - [facility] Rehab Discharge Summary Admission Date: 06/11/19 Discharge Date: 07/03/19 - History Present History: Alcohol dependence, Cocaine dependence, MMTP, Opioid dependence Additional Comments: Pt is a 43 y/o male with a hx of ELYSE admitted to rehab after completing detox on and scheduled to discharge on 07/03/19. Pt met with his counselor Ms Gregorio Wise and has arranged for pt to follow up with CD aftercare at [facility] program directly from here via transportation. Pt reports he has no current PCP hence has been connected to [facility] with a Care Coordination program for his Medical/psych care as well. Pt is a Methadone client on the [facility] on [place], [place]. _ Pertinent Past History: Bleeding Hemorrhoids HTN mood Disorder - Discharge Physical Exam Vital Signs: Vital Signs Temperature 98.2 F 07/02/19 07:20 Pulse Rate 112 H 07/02/19 07:20 Respiratory Rate 18 07/02/19 07:20 Blood Pressure 102/60 07/02/19 07:20 O2 Sat by Pulse Oximetry (%) Alert o x 3,denies s/h/i nad oob ambulating with steady gait cardiac:s1 s2,rrr lungs:cta,susana. abdomen:+bs,soft,nt,nd extremities/skin:no edema;skin intact Pertinent Admission Physical Exam Findings: Laboratory Tests 06/12/19 07:30 HIV 1&2 Antibody Screen Negative HIV P24 Antigen Negative - Treatment Discharge Condition: Discharge condition good Hospital Course: Rehabilitated safely Responded well CD aftercare referral accepted to [facility] - Medication Discharge Medications: Ambulatory Orders Docusate Sodium [Colace -] 300 mg PO HS 30 Days capsule 07/02/19 Psyllium [Metamucil (Sugar-Free) -] 5.85 gm PO TID 30 Days packet 07/02/19 Quetiapine Fumarate [Seroquel -] 100 mg PO HS #30 tablet 07/02/19 Amlodipine Besylate 10 mg PO DAILY #30 tablet 07/03/19 - Medication-Assisted Treatment (MAT) Medication-Assisted Treatment (MAT): No - Discharge Instructions Diet, activity, other medical instructions: Diet:SANTOS Activity: oob ad helio Other medical instructions:follow up with CD aftercare recommendation as scheduled with [facility]. follow up with primary care recommendations with [facility] after discharge. - Diagnosis (1) Bleeding hemorrhoid Status: Chronic (2) Alcohol dependence Status: Chronic Qualifiers: Substance use status: uncomplicated Qualified Code(s): F10.20 - Alcohol dependence, uncomplicated (3) Cocaine dependence Status: Chronic Qualifiers: Substance use status: uncomplicated Qualified Code(s): F14.20 - Cocaine dependence, uncomplicated (4) Cannabis abuse, uncomplicated Status: Chronic (5) Nicotine dependence Status: Chronic Qualifiers: Nicotine product type: cigarettes Substance use status: in withdrawal Qualified Code(s): F17.213 - Nicotine dependence, cigarettes, with withdrawal (6) HTN (hypertension) Status: Chronic Qualifiers: Hypertension type: essential hypertension Qualified Code(s): I10 - Essential (primary) hypertension - Follow-up Referral Minutes to complete discharge: 35 - AMA Did Patient Leave Against Medical Advice: No
[2019-07-02] MEDS: PRENATAL VITAMINS W/ FOLIC ACID TABLET (FP) PO SCH (10:20)
[2019-07-02] MEDS: HYDROCORTISONE 2.5% TOPICAL CREAM 30 GM TUBE TP SCH ×2 (10:20→21:12)
[2019-07-02] MEDS: BACITRACIN 15 GM TUBE TOPICAL OINTMENT TP SCH ×2 (10:21→21:12)
[2019-07-02] MEDS: amLODIPine BESYLATE 10 MG TABLET (FP) PO SCH (10:21)
--- NOTE | 2019-07-02 10:59 | PN ---
[facility] Progress Note Note: Patient is scheduled for discharge tomorrow. Script for 30 days supply of Seroquel 100 mg/hs will be electronically transmitted to [facility] at [address] [place], [place] [id number]
[2019-07-02] MEDS: MELATONIN 5 MG TABLETS PO PRN (21:11)
[2019-07-02] MEDS: DOCUSATE SODIUM 100 MG CAPSULE (FP) PO SCH (21:11)
[2019-07-02] MEDS: QUEtiapine FUMARATE 100 MG TABLET (FP) PO SCH (21:11)
[2019-07-02] MEDS: THIAMINE HCL 100 MG TABLET (FP) PO SCH (21:11)
[2019-07-03] MEDS ORDERED: METHADONE HCL 40 MG DISPERSABLE TABLET ONE (06:02)
[2019-07-03] MEDS ORDERED: METHADONE HCL 10 MG TABLET ONE (06:02)
[2019-07-03] MEDS: METHADONE 120 MG, METHADONE 30 MG PO SCH (06:18)
[2019-07-03] MEDS: PSYLLIUM 5.85 GM PACKET PO SCH (06:18)
[2019-07-03] MEDS: hydrOXYzine PAMOATE 50 MG CAPSULE (FP) PO PRN (06:20)
[2019-07-03 07:39] VITALS: BP 102/70; PULSE 69
[2019-07-03] MEDS: NICOTINE POLACRILEX 2 MG GUM BUC PRN ×2 (07:47→09:47)
[2019-07-03] MEDS: PRENATAL VITAMINS W/ FOLIC ACID TABLET (FP) PO SCH (09:46)
[2019-07-03] MEDS: HYDROCORTISONE 2.5% TOPICAL CREAM 30 GM TUBE TP SCH (09:46)
[2019-07-03] MEDS: BACITRACIN 15 GM TUBE TOPICAL OINTMENT TP SCH (09:46)
[2019-07-03] MEDS: amLODIPine BESYLATE 10 MG TABLET (FP) PO SCH (09:46)
== END 2019-07-03 09:55 | disposition home or self-care (01) | DRG 772 ==
LOC: YASAS 14:35 → Y5N 14:40
PROVIDERS: ADMIT Allergy & Immunology; ATTEND Allergy & Immunology
PROC: HZ42ZZZ Group Counseling for Substance Abuse Treatment, Cognitive-Behavioral (ICD-10-PCS; principal; 2019-06-11)
DX: F10.20 Alcohol dependence, uncomplicated (principal); F11.20 Opioid dependence, uncomplicated; F14.20 Cocaine dependence, uncomplicated; F12.10 Cannabis abuse, uncomplicated; F17.210 Nicotine dependence, cigarettes, uncomplicated; F19.282 Other psychoactive substance dependence with psychoactive substance-induced sleep disorder; F19.24 Other psychoactive substance dependence with psychoactive substance-induced mood disorder; F39 Unspecified mood [affective] disorder; F41.8 Other specified anxiety disorders; F32.9 Major depressive disorder, single episode, unspecified; I10 Essential (primary) hypertension; K59.00 Constipation, unspecified; K64.9 Unspecified hemorrhoids; G47.00 Insomnia, unspecified; L98.8 Other specified disorders of the skin and subcutaneous tissue; Z59.0 Homelessness
CPT/HCPCS: 36415; 87389

== ENCOUNTER 2020-06-10 10:07 | Inpatient (IN) | payer OTHER ==
[2020-06-10] MEDS ORDERED: MAGNESIUM CITRATE 300 ML BOTTLE PO PRN (11:12)
[2020-06-10] MEDS ORDERED: chlordiazePOXIDE HCL 25 MG CAPSULE PO PRN (11:12)
[2020-06-10] MEDS ORDERED: MAGNESIUM HYDROX 2400MG/30ML ORAL SUSPENSION 30 ML CUP PO PRN (11:12)
[2020-06-10] MEDS ORDERED: MENTHOL/PHENOL 1 EACH UD MM PRN (11:12)
[2020-06-10] MEDS ORDERED: ONDANSETRON *ODT* 4 MG TABLET SL PRN (11:12)
[2020-06-10] MEDS ORDERED: NICOTINE POLACRILEX 2 MG GUM BUC PRN (11:12)
[2020-06-10] MEDS ORDERED: BISMUTH SUBSALICYLATE 262 MG/15 ML BTL PO PRN (11:12)
[2020-06-10] MEDS ORDERED: ACETAMINOPHEN 325 MG TABLET (FP) PO PRN ×2 (11:12)
[2020-06-10] MEDS ORDERED: MAG HYDROX/AL HYDROX/SIMETH 30 ML UNIT-DOSE CUP PO PRN (11:12)
[2020-06-10] MEDS ORDERED: cloNIDine HCL 0.1 MG TABLET PO PRN (11:12)
[2020-06-10] MEDS ORDERED: METHADONE HCL 10 MG TABLET (FOR DETOX USE ONLY) PO ONE (11:30)
[2020-06-10 11:34] VITALS: BMI 26.1
[2020-06-10] MEDS: amLODIPine BESYLATE 10 MG TABLET (FP) PO SCH (12:24)
[2020-06-10] MEDS: NICOTINE 14 MG/24 HOURS TOPICAL PATCH TD SCH (12:25)
[2020-06-10] MEDS ORDERED: hydrOXYzine PAMOATE 25 MG CAPSULE (FP) PO SCH (14:00)
[2020-06-10] MEDS: GABAPENTIN 100 MG CAPSULE PO SCH ×2 (15:23→22:58)
[2020-06-10] MEDS: chlordiazePOXIDE HCL 25 MG CAPSULE PO SCH ×2 (17:51→22:57)
[2020-06-10 18:55] LABS: HEMATOCRIT 42.6 % (35.4-49); HEMOGLOBIN 14.5 GM/dL (11.7-16.9); MCH 31.9 pg (25.7-33.7); MCHC 34.1 g/dl (32.0-35.9); MEAN CELL VOLUME 93.3 fl (80-96); MEAN PLT VOLUME 9.1 fl (7.5-11.1); PLATELET COUNT 237 K/MM3 (134-434); RBC 4.56 M/mm3 (4.00-5.60); RDW 13.3 % (11.9-15.9); WHITE BLOOD COUNT 5.8 K/mm3 (4.0-10.0)
[2020-06-10 18:57] LABS: POTASSIUM 3.6 mmol/L (3.5-5.1)
[2020-06-10 19:01] LABS: ALBUMIN 3.6 g/dl (3.4-5.0); CALCIUM 8.9 mg/dL (8.5-10.1)
[2020-06-10 19:04] LABS: CREATININE 0.8 mg/dL (0.55-1.3)
[2020-06-10 19:06] LABS: BILIRUBIN,TOTAL 0.4 mg/dL (0.2-1)
[2020-06-10] MEDS: QUEtiapine FUMARATE 100 MG TABLET (FP) PO SCH (22:57)
[2020-06-10] MEDS: THIAMINE HCL 100 MG TABLET (FP) PO SCH (22:57)
[2020-06-10] MEDS: METHOCARBAMOL 500 MG TABLET PO PRN (22:57)
[2020-06-10] MEDS: MELATONIN 5 MG TABLETS PO SCH (22:58)
[2020-06-10] MEDS: hydrOXYzine PAMOATE 25 MG CAPSULE (FP) PO PRN (22:58)
[2020-06-11] MEDS: chlordiazePOXIDE HCL 25 MG CAPSULE PO SCH ×4 (05:46→22:17)
[2020-06-11] MEDS: GABAPENTIN 100 MG CAPSULE PO SCH ×3 (05:46→22:16)
[2020-06-11] MEDS: IBUPROFEN 400 MG TABLET (FP) PO PRN (05:47)
[2020-06-11] MEDS ORDERED: METHADONE HCL 5 MG TABLET (FOR DETOX USE ONLY) ONE (09:13)
[2020-06-11] MEDS ORDERED: METHADONE HCL 10 MG TABLET (FOR DETOX USE ONLY) ONE (09:13)
[2020-06-11] MEDS ORDERED: METHADONE (DETOX) 20 MG, METHADONE (DETOX) 5 MG PO ONE (10:00)
[2020-06-11] MEDS: PRENATAL VITAMINS W/ FOLIC ACID TABLET (FP) PO SCH (10:50)
[2020-06-11] MEDS: amLODIPine BESYLATE 10 MG TABLET (FP) PO SCH (10:50)
[2020-06-11] MEDS: NICOTINE 14 MG/24 HOURS TOPICAL PATCH TD SCH (10:53)
[2020-06-11] MEDS: THIAMINE HCL 100 MG TABLET (FP) PO SCH (22:16)
[2020-06-11] MEDS: QUEtiapine FUMARATE 100 MG TABLET (FP) PO SCH (22:16)
[2020-06-11] MEDS: MELATONIN 5 MG TABLETS PO SCH (22:16)
[2020-06-12] MEDS: chlordiazePOXIDE HCL 25 MG CAPSULE PO SCH ×4 (05:44→22:13)
[2020-06-12] MEDS: IBUPROFEN 400 MG TABLET (FP) PO PRN (05:45)
[2020-06-12] MEDS: GABAPENTIN 100 MG CAPSULE PO SCH ×3 (05:45→22:13)
[2020-06-12] MEDS ORDERED: METHADONE HCL 10 MG TABLET (FOR DETOX USE ONLY) PO ONE (10:00)
[2020-06-12] MEDS: PRENATAL VITAMINS W/ FOLIC ACID TABLET (FP) PO SCH (10:24)
[2020-06-12] MEDS: NICOTINE 14 MG/24 HOURS TOPICAL PATCH TD SCH (10:24)
[2020-06-12] MEDS: amLODIPine BESYLATE 10 MG TABLET (FP) PO SCH (10:25)
[2020-06-12] MEDS ORDERED: QUEtiapine FUMARATE 50 MG TABLET PO SCH (15:00)
[2020-06-12] MEDS: QUEtiapine FUMARATE 50 MG TABLET PO SCH ×2 (15:50→22:12)
[2020-06-12] MEDS: hydrOXYzine PAMOATE 25 MG CAPSULE (FP) PO PRN ×2 (17:30→22:12)
[2020-06-12] MEDS: MELATONIN 5 MG TABLETS PO SCH (22:13)
[2020-06-12] MEDS: THIAMINE HCL 100 MG TABLET (FP) PO SCH (22:13)
[2020-06-13] MEDS ORDERED: chlordiazePOXIDE HCL 10 MG CAPSULE PO PRN
[2020-06-13] MEDS: chlordiazePOXIDE HCL 10 MG CAPSULE PO SCH ×4 (05:36→22:56)
[2020-06-13] MEDS: hydrOXYzine PAMOATE 25 MG CAPSULE (FP) PO PRN ×2 (05:37→10:07)
[2020-06-13] MEDS: GABAPENTIN 100 MG CAPSULE PO SCH ×3 (07:44→22:58)
[2020-06-13] MEDS ORDERED: METHADONE HCL 10 MG TABLET (FOR DETOX USE ONLY) ONE (09:19)
[2020-06-13] MEDS ORDERED: METHADONE HCL 5 MG TABLET (FOR DETOX USE ONLY) ONE (09:19)
[2020-06-13] MEDS ORDERED: METHADONE (DETOX) 10 MG, METHADONE (DETOX) 5 MG PO ONE (10:00)
[2020-06-13] MEDS: PRENATAL VITAMINS W/ FOLIC ACID TABLET (FP) PO SCH (10:05)
[2020-06-13] MEDS: NICOTINE 14 MG/24 HOURS TOPICAL PATCH TD SCH (10:05)
[2020-06-13] MEDS: QUEtiapine FUMARATE 50 MG TABLET PO SCH ×3 (10:06→22:57)
[2020-06-13] MEDS: amLODIPine BESYLATE 10 MG TABLET (FP) PO SCH (10:06)
[2020-06-13] MEDS: MELATONIN 5 MG TABLETS PO SCH (22:57)
[2020-06-13] MEDS: THIAMINE HCL 100 MG TABLET (FP) PO SCH (22:57)
[2020-06-14] MEDS: hydrOXYzine PAMOATE 25 MG CAPSULE (FP) PO PRN ×3 (05:48→22:17)
[2020-06-14] MEDS: GABAPENTIN 100 MG CAPSULE PO SCH ×3 (05:49→22:17)
[2020-06-14] MEDS: chlordiazePOXIDE HCL 10 MG CAPSULE PO SCH ×2 (05:49→17:27)
[2020-06-14] MEDS ORDERED: METHADONE HCL 10 MG TABLET (FOR DETOX USE ONLY) PO ONE (10:00)
[2020-06-14] MEDS: PRENATAL VITAMINS W/ FOLIC ACID TABLET (FP) PO SCH (10:27)
[2020-06-14] MEDS: amLODIPine BESYLATE 10 MG TABLET (FP) PO SCH (10:27)
[2020-06-14] MEDS: QUEtiapine FUMARATE 50 MG TABLET PO SCH ×3 (10:28→22:17)
[2020-06-14] MEDS: NICOTINE 14 MG/24 HOURS TOPICAL PATCH TD SCH (10:28)
[2020-06-14] MEDS: METHOCARBAMOL 500 MG TABLET PO PRN ×2 (10:29→22:17)
[2020-06-14] MEDS: MELATONIN 5 MG TABLETS PO SCH (22:17)
[2020-06-14] MEDS: THIAMINE HCL 100 MG TABLET (FP) PO SCH (22:17)
[2020-06-15] MEDS ORDERED: chlordiazePOXIDE HCL 10 MG CAPSULE PO ONE (05:00)
[2020-06-15] MEDS: hydrOXYzine PAMOATE 25 MG CAPSULE (FP) PO PRN ×2 (05:38→10:09)
[2020-06-15] MEDS: METHOCARBAMOL 500 MG TABLET PO PRN (05:38)
[2020-06-15] MEDS: GABAPENTIN 100 MG CAPSULE PO SCH (05:39)
[2020-06-15] MEDS ORDERED: METHADONE HCL 5 MG TABLET (FOR DETOX USE ONLY) PO ONE (06:00)
[2020-06-15 09:18] VITALS: BP 132/94; PULSE 96; TEMP 96.7
[2020-06-15] MEDS: PRENATAL VITAMINS W/ FOLIC ACID TABLET (FP) PO SCH (10:07)
[2020-06-15] MEDS: NICOTINE 14 MG/24 HOURS TOPICAL PATCH TD SCH (10:08)
[2020-06-15] MEDS: amLODIPine BESYLATE 10 MG TABLET (FP) PO SCH (10:08)
[2020-06-15] MEDS: QUEtiapine FUMARATE 50 MG TABLET PO SCH (10:09)
== END 2020-06-15 11:18 | disposition other institution (70) | DRG 773 ==
LOC: YASAS 10:07 → Y3N 11:19
PROVIDERS: ADMIT Allergy & Immunology; ATTEND Allergy & Immunology
PROC: HZ2ZZZZ Detoxification Services for Substance Abuse Treatment (ICD-10-PCS; principal; 2020-06-10)
DX: F11.23 Opioid dependence with withdrawal (principal); F10.230 Alcohol dependence with withdrawal, uncomplicated; F13.10 Sedative, hypnotic or anxiolytic abuse, uncomplicated; F17.210 Nicotine dependence, cigarettes, uncomplicated; F19.282 Other psychoactive substance dependence with psychoactive substance-induced sleep disorder; F19.24 Other psychoactive substance dependence with psychoactive substance-induced mood disorder; F41.9 Anxiety disorder, unspecified; F32.9 Major depressive disorder, single episode, unspecified; I10 Essential (primary) hypertension; K64.9 Unspecified hemorrhoids; R73.9 Hyperglycemia, unspecified; Z56.0 Unemployment, unspecified; Z59.0 Homelessness
CPT/HCPCS: 36415; 80053; 85027; 86780; 93005; 93010; C9803; J0735; U0003

== ENCOUNTER 2020-06-15 11:20 | Inpatient (IN) | payer OTHER ==
[2020-06-15] MEDS ORDERED: MAGNESIUM CITRATE 300 ML BOTTLE PO PRN (13:58)
[2020-06-15] MEDS ORDERED: MAGNESIUM HYDROX 2400MG/30ML ORAL SUSPENSION 30 ML CUP PO PRN (13:58)
[2020-06-15] MEDS ORDERED: guaiFENesin 200 MG/10 ML 10 ML UNIT-DOSE CUPS PO PRN (13:58)
[2020-06-15] MEDS ORDERED: P-EPHED 60MG/TRIPROLIDI 2.5MG TABLET PO PRN (13:58)
[2020-06-15] MEDS ORDERED: LOPERAMIDE HCL 2 MG CAPSULE PO PRN (13:58)
[2020-06-15] MEDS ORDERED: MAG HYDROX/AL HYDROX/SIMETH 30 ML UNIT-DOSE CUP PO PRN (13:58)
[2020-06-15] MEDS ORDERED: ACETAMINOPHEN 325 MG TABLET (FP) PO PRN (13:58)
[2020-06-15] MEDS ORDERED: MENTHOL/PHENOL 1 EACH UD MM PRN (13:58)
[2020-06-15] MEDS ORDERED: QUEtiapine FUMARATE 50 MG TABLET PO SCH (14:00)
[2020-06-15] MEDS: METHOCARBAMOL 500 MG TABLET PO PRN ×2 (15:02→21:49)
[2020-06-15] MEDS: GABAPENTIN 100 MG CAPSULE PO SCH ×2 (15:04→21:49)
[2020-06-15] MEDS: LIDOCAINE 5% TOPICAL PATCH TP SCH (16:12)
[2020-06-15] MEDS: MELATONIN 5 MG TABLETS PO SCH (21:48)
[2020-06-15] MEDS: LIDOCAINE PATCH REMOVAL MC SCH (21:48)
[2020-06-15] MEDS: hydrOXYzine PAMOATE 25 MG CAPSULE (FP) PO PRN (21:49)
[2020-06-15] MEDS: THIAMINE HCL 100 MG TABLET (FP) PO SCH (21:50)
[2020-06-15] MEDS ORDERED: QUEtiapine FUMARATE 100 MG TABLET (FP) PO SCH ×2 (22:00)
[2020-06-16] MEDS: GABAPENTIN 100 MG CAPSULE PO SCH ×3 (06:08→21:07)
[2020-06-16] MEDS: hydrOXYzine PAMOATE 25 MG CAPSULE (FP) PO PRN ×2 (06:08→13:56)
[2020-06-16] MEDS: METHOCARBAMOL 500 MG TABLET PO PRN ×3 (06:08→21:07)
[2020-06-16] MEDS ORDERED: PT OWN MED DRAWER 7, Y5N ONE (09:06)
[2020-06-16] MEDS: PRENATAL VITAMINS W/ FOLIC ACID TABLET (FP) PO SCH (09:48)
[2020-06-16] MEDS: QUEtiapine FUMARATE 50 MG TABLET PO SCH ×3 (09:48→21:08)
[2020-06-16] MEDS: LIDOCAINE 5% TOPICAL PATCH TP SCH (09:49)
[2020-06-16] MEDS: amLODIPine BESYLATE 10 MG TABLET (FP) PO SCH (09:49)
[2020-06-16] MEDS ORDERED: ONDANSETRON *ODT* 4 MG TABLET SL PRN (14:00)
[2020-06-16] MEDS: THIAMINE HCL 100 MG TABLET (FP) PO SCH (21:07)
[2020-06-16] MEDS: cloNIDine HCL 0.1 MG TABLET PO PRN (21:08)
[2020-06-16] MEDS: MELATONIN 5 MG TABLETS PO SCH (21:08)
[2020-06-16] MEDS: LIDOCAINE PATCH REMOVAL MC SCH (21:08)
[2020-06-17] MEDS: cloNIDine HCL 0.1 MG TABLET PO PRN (06:00)
[2020-06-17] MEDS: METHOCARBAMOL 500 MG TABLET PO PRN ×3 (06:00→21:39)
[2020-06-17] MEDS: GABAPENTIN 100 MG CAPSULE PO SCH ×3 (06:00→21:38)
[2020-06-17] MEDS: hydrOXYzine PAMOATE 25 MG CAPSULE (FP) PO PRN ×4 (06:00→21:39)
[2020-06-17] MEDS: LIDOCAINE 5% TOPICAL PATCH TP SCH (09:55)
[2020-06-17] MEDS: PRENATAL VITAMINS W/ FOLIC ACID TABLET (FP) PO SCH (09:55)
[2020-06-17] MEDS: QUEtiapine FUMARATE 50 MG TABLET PO SCH ×3 (09:55→21:38)
[2020-06-17] MEDS: amLODIPine BESYLATE 10 MG TABLET (FP) PO SCH (09:55)
[2020-06-17] MEDS: IBUPROFEN 400 MG TABLET (FP) PO PRN (09:57)
[2020-06-17] MEDS: THIAMINE HCL 100 MG TABLET (FP) PO SCH (21:38)
[2020-06-17] MEDS: MELATONIN 5 MG TABLETS PO SCH (21:38)
[2020-06-17] MEDS: LIDOCAINE PATCH REMOVAL MC SCH (21:40)
[2020-06-18] MEDS: GABAPENTIN 100 MG CAPSULE PO SCH ×3 (06:20→21:08)
[2020-06-18] MEDS: hydrOXYzine PAMOATE 25 MG CAPSULE (FP) PO PRN ×3 (06:20→17:27)
[2020-06-18] MEDS: cloNIDine HCL 0.1 MG TABLET PO PRN ×2 (06:20→19:46)
[2020-06-18] MEDS: METHOCARBAMOL 500 MG TABLET PO PRN ×3 (06:20→21:06)
[2020-06-18] MEDS: LIDOCAINE 5% TOPICAL PATCH TP SCH (09:40)
[2020-06-18] MEDS: PRENATAL VITAMINS W/ FOLIC ACID TABLET (FP) PO SCH (09:40)
[2020-06-18] MEDS: amLODIPine BESYLATE 10 MG TABLET (FP) PO SCH (09:40)
[2020-06-18] MEDS: QUEtiapine FUMARATE 50 MG TABLET PO SCH ×3 (09:40→21:06)
[2020-06-18] MEDS: MELATONIN 5 MG TABLETS PO SCH (21:06)
[2020-06-18] MEDS: THIAMINE HCL 100 MG TABLET (FP) PO SCH (21:06)
[2020-06-18] MEDS: IBUPROFEN 400 MG TABLET (FP) PO PRN (21:06)
[2020-06-18] MEDS: LIDOCAINE PATCH REMOVAL MC SCH (21:08)
[2020-06-19] MEDS: GABAPENTIN 100 MG CAPSULE PO SCH ×3 (06:08→21:43)
[2020-06-19] MEDS: cloNIDine HCL 0.1 MG TABLET PO PRN (06:08)
[2020-06-19] MEDS: METHOCARBAMOL 500 MG TABLET PO PRN ×3 (06:08→21:45)
[2020-06-19] MEDS: hydrOXYzine PAMOATE 25 MG CAPSULE (FP) PO PRN (06:08)
[2020-06-19] MEDS: PRENATAL VITAMINS W/ FOLIC ACID TABLET (FP) PO SCH (09:31)
[2020-06-19] MEDS: BUPRENORPHINE/NALOXONE 4 MG/1 MG FILM PACKET SL SCH (09:32)
[2020-06-19] MEDS: LIDOCAINE 5% TOPICAL PATCH TP SCH (09:32)
[2020-06-19] MEDS: QUEtiapine FUMARATE 50 MG TABLET PO SCH ×3 (09:32→21:44)
[2020-06-19] MEDS: amLODIPine BESYLATE 10 MG TABLET (FP) PO SCH (09:32)
[2020-06-19] MEDS: THIAMINE HCL 100 MG TABLET (FP) PO SCH (21:43)
[2020-06-19] MEDS: MELATONIN 5 MG TABLETS PO SCH (21:43)
[2020-06-19] MEDS: LIDOCAINE PATCH REMOVAL MC SCH (21:45)
[2020-06-20] MEDS: cloNIDine HCL 0.1 MG TABLET PO PRN (06:25)
[2020-06-20] MEDS: METHOCARBAMOL 500 MG TABLET PO PRN ×2 (06:25→14:22)
[2020-06-20] MEDS: GABAPENTIN 100 MG CAPSULE PO SCH (06:25)
[2020-06-20] MEDS: BUPRENORPHINE/NALOXONE 4 MG/1 MG FILM PACKET SL SCH (09:34)
[2020-06-20] MEDS: amLODIPine BESYLATE 10 MG TABLET (FP) PO SCH (09:34)
[2020-06-20] MEDS: PRENATAL VITAMINS W/ FOLIC ACID TABLET (FP) PO SCH (09:35)
[2020-06-20] MEDS: LIDOCAINE 5% TOPICAL PATCH TP SCH (09:35)
[2020-06-20] MEDS: hydrOXYzine PAMOATE 25 MG CAPSULE (FP) PO PRN ×3 (09:35→21:11)
[2020-06-20] MEDS: QUEtiapine FUMARATE 50 MG TABLET PO SCH ×2 (09:35→14:23)
[2020-06-20] MEDS: GABAPENTIN 300 MG CAPSULE PO SCH ×2 (14:21→21:09)
[2020-06-20] MEDS: QUEtiapine FUMARATE 200 MG TABLET PO SCH (21:09)
[2020-06-20] MEDS: MELATONIN 5 MG TABLETS PO SCH (21:09)
[2020-06-20] MEDS: LIDOCAINE PATCH REMOVAL MC SCH (21:09)
[2020-06-20] MEDS: THIAMINE HCL 100 MG TABLET (FP) PO SCH (21:09)
[2020-06-21] MEDS: cloNIDine HCL 0.1 MG TABLET PO PRN ×2 (06:07→21:44)
[2020-06-21] MEDS: hydrOXYzine PAMOATE 25 MG CAPSULE (FP) PO PRN ×3 (06:07→21:19)
[2020-06-21] MEDS: GABAPENTIN 300 MG CAPSULE PO SCH ×3 (06:08→21:17)
[2020-06-21] MEDS: METHOCARBAMOL 500 MG TABLET PO PRN ×3 (06:08→21:19)
[2020-06-21] MEDS: PRENATAL VITAMINS W/ FOLIC ACID TABLET (FP) PO SCH (09:30)
[2020-06-21] MEDS: amLODIPine BESYLATE 10 MG TABLET (FP) PO SCH (09:30)
[2020-06-21] MEDS: QUEtiapine FUMARATE 50 MG TABLET PO SCH ×2 (09:30→13:51)
[2020-06-21] MEDS: BUPRENORPHINE/NALOXONE 4 MG/1 MG FILM PACKET SL SCH (09:30)
[2020-06-21] MEDS: LIDOCAINE 5% TOPICAL PATCH TP SCH (09:31)
[2020-06-21] MEDS: NICOTINE POLACRILEX 2 MG GUM BUC PRN (09:32)
[2020-06-21] MEDS: QUEtiapine FUMARATE 200 MG TABLET PO SCH (21:17)
[2020-06-21] MEDS: THIAMINE HCL 100 MG TABLET (FP) PO SCH (21:18)
[2020-06-21] MEDS: LIDOCAINE PATCH REMOVAL MC SCH (21:18)
[2020-06-21] MEDS: MELATONIN 5 MG TABLETS PO SCH (21:18)
[2020-06-22] MEDS: GABAPENTIN 300 MG CAPSULE PO SCH ×3 (05:59→21:12)
[2020-06-22] MEDS: hydrOXYzine PAMOATE 25 MG CAPSULE (FP) PO PRN ×3 (05:59→21:14)
[2020-06-22] MEDS: METHOCARBAMOL 500 MG TABLET PO PRN ×3 (05:59→21:14)
[2020-06-22] MEDS: cloNIDine HCL 0.1 MG TABLET PO PRN ×2 (06:00→21:14)
[2020-06-22] MEDS: QUEtiapine FUMARATE 50 MG TABLET PO SCH ×2 (09:27→14:01)
[2020-06-22] MEDS: amLODIPine BESYLATE 10 MG TABLET (FP) PO SCH (09:27)
[2020-06-22] MEDS: PRENATAL VITAMINS W/ FOLIC ACID TABLET (FP) PO SCH (09:27)
[2020-06-22] MEDS: LIDOCAINE 5% TOPICAL PATCH TP SCH (09:28)
[2020-06-22] MEDS: BUPRENORPHINE/NALOXONE 4 MG/1 MG FILM PACKET SL SCH (09:28)
[2020-06-22] MEDS: MELATONIN 5 MG TABLETS PO SCH (21:12)
[2020-06-22] MEDS: QUEtiapine FUMARATE 200 MG TABLET PO SCH (21:12)
[2020-06-22] MEDS: LIDOCAINE PATCH REMOVAL MC SCH (21:15)
[2020-06-22] MEDS: THIAMINE HCL 100 MG TABLET (FP) PO SCH (21:15)
[2020-06-23] MEDS: hydrOXYzine PAMOATE 25 MG CAPSULE (FP) PO PRN ×3 (06:13→21:45)
[2020-06-23] MEDS: GABAPENTIN 300 MG CAPSULE PO SCH ×3 (06:13→21:46)
[2020-06-23] MEDS: cloNIDine HCL 0.1 MG TABLET PO PRN ×2 (06:13→21:45)
[2020-06-23] MEDS: METHOCARBAMOL 500 MG TABLET PO PRN ×3 (06:13→21:45)
[2020-06-23] MEDS: PRENATAL VITAMINS W/ FOLIC ACID TABLET (FP) PO SCH (09:40)
[2020-06-23] MEDS: amLODIPine BESYLATE 10 MG TABLET (FP) PO SCH (09:40)
[2020-06-23] MEDS: QUEtiapine FUMARATE 50 MG TABLET PO SCH ×2 (09:40→13:12)
[2020-06-23] MEDS: BUPRENORPHINE/NALOXONE 4 MG/1 MG FILM PACKET SL SCH (09:41)
[2020-06-23] MEDS: LIDOCAINE 5% TOPICAL PATCH TP SCH (09:41)
[2020-06-23] MEDS: NICOTINE POLACRILEX 2 MG GUM BUC PRN (09:42)
[2020-06-23] MEDS: MELATONIN 5 MG TABLETS PO SCH (21:44)
[2020-06-23] MEDS: LIDOCAINE PATCH REMOVAL MC SCH (21:44)
[2020-06-23] MEDS: THIAMINE HCL 100 MG TABLET (FP) PO SCH (21:45)
[2020-06-23] MEDS: QUEtiapine FUMARATE 200 MG TABLET PO SCH (21:45)
[2020-06-23] MEDS: IBUPROFEN 400 MG TABLET (FP) PO PRN (21:47)
[2020-06-24] MEDS: cloNIDine HCL 0.1 MG TABLET PO PRN ×2 (06:48→21:22)
[2020-06-24] MEDS: GABAPENTIN 300 MG CAPSULE PO SCH ×3 (06:49→21:13)
[2020-06-24] MEDS: hydrOXYzine PAMOATE 25 MG CAPSULE (FP) PO PRN ×4 (06:49→21:13)
[2020-06-24] MEDS: METHOCARBAMOL 500 MG TABLET PO PRN ×3 (06:49→21:14)
[2020-06-24] MEDS: LIDOCAINE 5% TOPICAL PATCH TP SCH (09:55)
[2020-06-24] MEDS: PRENATAL VITAMINS W/ FOLIC ACID TABLET (FP) PO SCH (09:55)
[2020-06-24] MEDS: QUEtiapine FUMARATE 50 MG TABLET PO SCH ×2 (09:56→14:28)
[2020-06-24] MEDS: amLODIPine BESYLATE 10 MG TABLET (FP) PO SCH (09:56)
[2020-06-24] MEDS: BUPRENORPHINE/NALOXONE 4 MG/1 MG FILM PACKET SL SCH (09:56)
[2020-06-24] MEDS: LIDOCAINE PATCH REMOVAL MC SCH (21:12)
[2020-06-24] MEDS: MELATONIN 5 MG TABLETS PO SCH (21:13)
[2020-06-24] MEDS: QUEtiapine FUMARATE 200 MG TABLET PO SCH (21:13)
[2020-06-24] MEDS: THIAMINE HCL 100 MG TABLET (FP) PO SCH (21:14)
[2020-06-24] MEDS: IBUPROFEN 400 MG TABLET (FP) PO PRN (21:14)
[2020-06-25] MEDS: hydrOXYzine PAMOATE 25 MG CAPSULE (FP) PO PRN ×2 (06:19→09:23)
[2020-06-25] MEDS: GABAPENTIN 300 MG CAPSULE PO SCH (06:19)
[2020-06-25] MEDS: METHOCARBAMOL 500 MG TABLET PO PRN (06:19)
[2020-06-25] MEDS: cloNIDine HCL 0.1 MG TABLET PO PRN (06:20)
[2020-06-25 06:36] VITALS: TEMP 97.3
[2020-06-25] MEDS: LIDOCAINE 5% TOPICAL PATCH TP SCH (09:22)
[2020-06-25] MEDS: PRENATAL VITAMINS W/ FOLIC ACID TABLET (FP) PO SCH (09:23)
[2020-06-25] MEDS: QUEtiapine FUMARATE 50 MG TABLET PO SCH (09:23)
[2020-06-25] MEDS: amLODIPine BESYLATE 10 MG TABLET (FP) PO SCH (09:23)
[2020-06-25] MEDS ORDERED: BUPRENORPHINE/NALOXONE 4 MG/1 MG FILM PACKET SL SCH (10:00)
[2020-06-25 11:17] VITALS: BP 109/78; PULSE 85
== END 2020-06-25 09:40 | disposition home or self-care (01) | DRG 772 ==
LOC: YASAS 11:20 → Y5N 11:21
PROVIDERS: ADMIT Allergy & Immunology; ATTEND Allergy & Immunology
PROC: HZ42ZZZ Group Counseling for Substance Abuse Treatment, Cognitive-Behavioral (ICD-10-PCS; principal; 2020-06-15)
DX: F11.20 Opioid dependence, uncomplicated (principal); F10.20 Alcohol dependence, uncomplicated; F13.20 Sedative, hypnotic or anxiolytic dependence, uncomplicated; F17.210 Nicotine dependence, cigarettes, uncomplicated; F19.280 Other psychoactive substance dependence with psychoactive substance-induced anxiety disorder; F19.282 Other psychoactive substance dependence with psychoactive substance-induced sleep disorder; F39 Unspecified mood [affective] disorder; I10 Essential (primary) hypertension; K64.9 Unspecified hemorrhoids; Z51.81 Encounter for therapeutic drug level monitoring; Z56.0 Unemployment, unspecified; Z59.0 Homelessness; Z79.899 Other long term (current) drug therapy
CPT/HCPCS: 82962; C9803; J0735; Q0162; U0003

== ENCOUNTER 2020-10-09 17:49 | Inpatient (IN) | payer OTHER ==
[2020-10-09 19:45] VITALS: BMI 23.4
[2020-10-09] MEDS ORDERED: P-EPHED 60MG/TRIPROLIDI 2.5MG TABLET PO PRN (21:38)
[2020-10-09] MEDS ORDERED: MENTHOL/PHENOL 1 EACH UD MM PRN (21:38)
[2020-10-09] MEDS ORDERED: NICOTINE POLACRILEX 2 MG GUM BUC PRN (21:38)
[2020-10-09] MEDS ORDERED: guaiFENesin 200 MG/10 ML 10 ML UNIT-DOSE CUPS PO PRN (21:38)
[2020-10-09] MEDS ORDERED: NALOXONE HCL 0.4 MG/ML VIAL IM PRN (21:38)
[2020-10-09] MEDS ORDERED: ONDANSETRON *ODT* 4 MG TABLET SL PRN (21:38)
[2020-10-09] MEDS ORDERED: ACETAMINOPHEN 325 MG TABLET (FP) PO PRN ×2 (21:38)
[2020-10-09] MEDS ORDERED: MAGNESIUM CITRATE 300 ML BOTTLE PO PRN (21:38)
[2020-10-09] MEDS ORDERED: DICYCLOMINE HCL 10 MG CAPSULE PO PRN (21:38)
[2020-10-09] MEDS ORDERED: MAGNESIUM HYDROX 2400MG/30ML ORAL SUSPENSION 30 ML CUP PO PRN (21:38)
[2020-10-09] MEDS ORDERED: NALOXONE (NARCAN) HCL 4 MG/0.1 ML SPRAY NS PRN (21:38)
[2020-10-09] MEDS ORDERED: MAG HYDROX/AL HYDROX/SIMETH 30 ML UNIT-DOSE CUP PO PRN (21:38)
[2020-10-09] MEDS ORDERED: BISMUTH SUBSALICYLATE 524 MG/30 ML PO PRN (21:38)
[2020-10-09] MEDS ORDERED: TRIMETHOBENZAMIDE HCL 200MG/2ML INJ IM ONE (21:43)
[2020-10-09] MEDS ORDERED: cloNIDine HCL 0.1 MG TABLET PO ONE (23:28)
[2020-10-09] MEDS: MELATONIN 5 MG TABLETS PO SCH (23:40)
[2020-10-09] MEDS: hydrOXYzine PAMOATE 25 MG CAPSULE (FP) PO PRN (23:42)
[2020-10-09] MEDS: THIAMINE HCL 100 MG TABLET (FP) PO SCH (23:43)
[2020-10-10] MEDS ORDERED: METHADONE HCL 40 MG DISPERSABLE TABLET PO ONE (08:07)
[2020-10-10] MEDS ORDERED: diazePAM 5 MG TABLET PO PRN (09:34)
[2020-10-10 11:32] LABS: HEMATOCRIT 50.6 % (35.4-49); HEMOGLOBIN 17.4 GM/dL (11.7-16.9); MCHC 34.5 g/dl (32.0-35.9); MEAN CELL VOLUME 92.9 fl (80-96); MEAN PLT VOLUME 10.3 fl (7.5-11.1); PLATELET COUNT 113 K/MM3 (134-434); RBC 5.44 M/mm3 (4.00-5.60); RDW 13.7 % (11.9-15.9)
[2020-10-10 11:39] LABS: BLOOD UREA NITROGEN 10.8 mg/dL (7-18)
[2020-10-10 11:41] LABS: CALCIUM 8.9 mg/dL (8.5-10.1)
[2020-10-10] MEDS: amLODIPine BESYLATE 10 MG TABLET (FP) PO SCH (11:41)
[2020-10-10] MEDS: METHOCARBAMOL 500 MG TABLET PO PRN ×2 (11:41→18:05)
[2020-10-10] MEDS: PRENATAL VITAMINS W/ FOLIC ACID TABLET (FP) PO SCH (11:41)
[2020-10-10 11:42] LABS: ALBUMIN 3.6 g/dl (3.4-5.0)
[2020-10-10] MEDS: NICOTINE 21 MG/24 HOURS TOPICAL PATCH TD SCH (11:42)
[2020-10-10] MEDS: diazePAM 5 MG TABLET PO SCH ×3 (11:42→23:01)
[2020-10-10 11:45] LABS: CREATININE 0.6 mg/dL (0.55-1.3)
[2020-10-10 11:46] LABS: BILIRUBIN,TOTAL 1.3 mg/dL (0.2-1); TOT PROT 7.4 g/dl (6.4-8.2)
[2020-10-10] MEDS: GABAPENTIN 100 MG CAPSULE PO SCH ×2 (14:44→23:02)
[2020-10-10] MEDS: THIAMINE HCL 100 MG TABLET (FP) PO SCH (23:02)
[2020-10-10] MEDS: QUEtiapine FUMARATE 100 MG TABLET (FP) PO SCH (23:02)
[2020-10-10] MEDS: MELATONIN 5 MG TABLETS PO SCH (23:02)
[2020-10-11] MEDS: GABAPENTIN 100 MG CAPSULE PO SCH ×3 (05:37→22:25)
[2020-10-11] MEDS: METHOCARBAMOL 500 MG TABLET PO PRN ×3 (05:37→22:28)
[2020-10-11] MEDS: METHADONE HCL 40 MG DISPERSABLE TABLET PO SCH (05:37)
[2020-10-11] MEDS: diazePAM 5 MG TABLET PO SCH ×4 (05:38→22:25)
[2020-10-11] MEDS: NICOTINE 21 MG/24 HOURS TOPICAL PATCH TD SCH (10:21)
[2020-10-11] MEDS: PRENATAL VITAMINS W/ FOLIC ACID TABLET (FP) PO SCH (10:22)
[2020-10-11] MEDS: amLODIPine BESYLATE 10 MG TABLET (FP) PO SCH (10:22)
[2020-10-11] MEDS: IBUPROFEN 400 MG TABLET (FP) PO PRN (17:36)
[2020-10-11] MEDS: hydrOXYzine PAMOATE 25 MG CAPSULE (FP) PO PRN ×2 (18:53→22:26)
[2020-10-11] MEDS: QUEtiapine FUMARATE 100 MG TABLET (FP) PO SCH (22:25)
[2020-10-11] MEDS: THIAMINE HCL 100 MG TABLET (FP) PO SCH (22:25)
[2020-10-11] MEDS: MELATONIN 5 MG TABLETS PO SCH (22:25)
[2020-10-12] MEDS: GABAPENTIN 100 MG CAPSULE PO SCH ×2 (05:59→14:12)
[2020-10-12] MEDS: METHADONE HCL 40 MG DISPERSABLE TABLET PO SCH (05:59)
[2020-10-12] MEDS: diazePAM 5 MG TABLET PO SCH ×3 (05:59→22:33)
[2020-10-12] MEDS: hydrOXYzine PAMOATE 25 MG CAPSULE (FP) PO PRN (06:00)
[2020-10-12] MEDS: NICOTINE 21 MG/24 HOURS TOPICAL PATCH TD SCH (09:48)
[2020-10-12] MEDS: PRENATAL VITAMINS W/ FOLIC ACID TABLET (FP) PO SCH (09:50)
[2020-10-12] MEDS: IBUPROFEN 400 MG TABLET (FP) PO PRN (09:50)
[2020-10-12] MEDS: amLODIPine BESYLATE 10 MG TABLET (FP) PO SCH (09:50)
[2020-10-12] MEDS: METHOCARBAMOL 500 MG TABLET PO PRN ×2 (09:51→22:33)
[2020-10-12 14:06] LABS: SARS-CoV-2 NAA Not Detected (Not Detected)
[2020-10-12] MEDS ORDERED: GABAPENTIN 400 MG CAPSULE PO SCH (22:00)
[2020-10-12] MEDS: GABAPENTIN 300 MG CAPSULE PO SCH (22:33)
[2020-10-12] MEDS: MELATONIN 5 MG TABLETS PO SCH (22:33)
[2020-10-12] MEDS: THIAMINE HCL 100 MG TABLET (FP) PO SCH (22:33)
[2020-10-12] MEDS: QUEtiapine FUMARATE 200 MG TABLET PO SCH (22:33)
[2020-10-13] MEDS: METHOCARBAMOL 500 MG TABLET PO PRN ×2 (06:16→17:32)
[2020-10-13] MEDS: GABAPENTIN 300 MG CAPSULE PO SCH ×3 (06:16→22:09)
[2020-10-13] MEDS: hydrOXYzine PAMOATE 25 MG CAPSULE (FP) PO PRN ×4 (06:17→22:10)
[2020-10-13] MEDS: METHADONE HCL 40 MG DISPERSABLE TABLET PO SCH (06:17)
[2020-10-13] MEDS: diazePAM 5 MG TABLET PO SCH ×2 (06:19→17:30)
[2020-10-13] MEDS: amLODIPine BESYLATE 10 MG TABLET (FP) PO SCH (10:06)
[2020-10-13] MEDS: PRENATAL VITAMINS W/ FOLIC ACID TABLET (FP) PO SCH (10:06)
[2020-10-13] MEDS: IBUPROFEN 400 MG TABLET (FP) PO PRN ×2 (10:07→17:34)
[2020-10-13] MEDS: NICOTINE 21 MG/24 HOURS TOPICAL PATCH TD SCH (10:10)
[2020-10-13] MEDS: MELATONIN 5 MG TABLETS PO SCH (22:09)
[2020-10-13] MEDS: QUEtiapine FUMARATE 200 MG TABLET PO SCH (22:09)
[2020-10-13] MEDS: THIAMINE HCL 100 MG TABLET (FP) PO SCH (22:09)
[2020-10-14] MEDS: GABAPENTIN 300 MG CAPSULE PO SCH ×2 (05:24→14:31)
[2020-10-14] MEDS: hydrOXYzine PAMOATE 25 MG CAPSULE (FP) PO PRN ×2 (05:24→10:42)
[2020-10-14] MEDS: METHADONE HCL 40 MG DISPERSABLE TABLET PO SCH (05:24)
[2020-10-14] MEDS: METHOCARBAMOL 500 MG TABLET PO PRN ×2 (05:24→14:33)
[2020-10-14] MEDS ORDERED: diazePAM 5 MG TABLET PO ONE (06:00)
[2020-10-14 09:35] VITALS: PULSE 63
[2020-10-14] MEDS: NICOTINE 21 MG/24 HOURS TOPICAL PATCH TD SCH (10:41)
[2020-10-14] MEDS: PRENATAL VITAMINS W/ FOLIC ACID TABLET (FP) PO SCH (10:41)
[2020-10-14] MEDS: amLODIPine BESYLATE 10 MG TABLET (FP) PO SCH (10:43)
[2020-10-14 12:48] VITALS: BP 103/61; TEMP 97.1
== END 2020-10-14 14:37 | disposition other institution (70) | DRG 773 ==
LOC: YASAS 17:49 → UNDOADMIN 21:14 → Y3N 21:14
PROVIDERS: ADMIT Allergy & Immunology; ATTEND Allergy & Immunology
PROC: HZ2ZZZZ Detoxification Services for Substance Abuse Treatment (ICD-10-PCS; principal; 2020-10-09)
DX: F10.230 Alcohol dependence with withdrawal, uncomplicated (principal); F13.230 Sedative, hypnotic or anxiolytic dependence with withdrawal, uncomplicated; F11.20 Opioid dependence, uncomplicated; F14.20 Cocaine dependence, uncomplicated; F17.210 Nicotine dependence, cigarettes, uncomplicated; F19.280 Other psychoactive substance dependence with psychoactive substance-induced anxiety disorder; F19.282 Other psychoactive substance dependence with psychoactive substance-induced sleep disorder; F19.24 Other psychoactive substance dependence with psychoactive substance-induced mood disorder; I10 Essential (primary) hypertension; K64.9 Unspecified hemorrhoids; Z87.81 Personal history of (healed) traumatic fracture; Z59.0 Homelessness; Z56.0 Unemployment, unspecified
CPT/HCPCS: 36415; 80053; 85027; 86780; C9803; J0735; Q0162; U0003; U0005

== ENCOUNTER 2020-10-14 14:42 | Inpatient (IN) | payer OTHER ==
[2020-10-14] MEDS ORDERED: guaiFENesin 200 MG/10 ML 10 ML UNIT-DOSE CUPS PO PRN (15:23)
[2020-10-14] MEDS ORDERED: P-EPHED 60MG/TRIPROLIDI 2.5MG TABLET PO PRN (15:23)
[2020-10-14] MEDS ORDERED: MENTHOL/PHENOL 1 EACH UD MM PRN (15:23)
[2020-10-14] MEDS ORDERED: ACETAMINOPHEN 325 MG TABLET (FP) PO PRN (15:23)
[2020-10-14] MEDS ORDERED: LOPERAMIDE HCL 2 MG CAPSULE PO PRN (15:23)
[2020-10-14] MEDS ORDERED: MAGNESIUM HYDROX 2400MG/30ML ORAL SUSPENSION 30 ML CUP PO PRN (15:23)
[2020-10-14] MEDS ORDERED: MAGNESIUM CITRATE 300 ML BOTTLE PO PRN (15:23)
[2020-10-14] MEDS ORDERED: MAG HYDROX/AL HYDROX/SIMETH 30 ML UNIT-DOSE CUP PO PRN (15:23)
[2020-10-14] MEDS ORDERED: NICOTINE POLACRILEX 2 MG GUM BUC PRN (15:23)
[2020-10-14] MEDS: METHOCARBAMOL 500 MG TABLET PO PRN (21:08)
[2020-10-14] MEDS: QUEtiapine FUMARATE 200 MG TABLET PO SCH (21:08)
[2020-10-14] MEDS: GABAPENTIN 300 MG CAPSULE PO SCH (21:08)
[2020-10-14] MEDS: THIAMINE HCL 100 MG TABLET (FP) PO SCH (21:08)
[2020-10-14] MEDS ORDERED: MELATONIN 5 MG TABLETS PO SCH (22:00)
[2020-10-15] MEDS: hydrOXYzine PAMOATE 25 MG CAPSULE (FP) PO PRN ×4 (06:00→21:10)
[2020-10-15] MEDS: METHADONE HCL 40 MG DISPERSABLE TABLET PO SCH (06:00)
[2020-10-15] MEDS: METHOCARBAMOL 500 MG TABLET PO PRN ×3 (06:00→21:11)
[2020-10-15] MEDS: GABAPENTIN 300 MG CAPSULE PO SCH ×3 (06:00→21:10)
[2020-10-15] MEDS: amLODIPine BESYLATE 10 MG TABLET (FP) PO SCH (10:02)
[2020-10-15] MEDS: PRENATAL VITAMINS W/ FOLIC ACID TABLET (FP) PO SCH (10:02)
[2020-10-15] MEDS: NICOTINE 7 MG/24 HOURS TOPICAL PATCH TD SCH (10:02)
[2020-10-15] MEDS: IBUPROFEN 400 MG TABLET (FP) PO PRN (10:04)
[2020-10-15] MEDS: QUEtiapine FUMARATE 50 MG TABLET PO SCH (15:57)
[2020-10-15] MEDS: LIDOCAINE 5% TOPICAL PATCH TP SCH (15:57)
[2020-10-15] MEDS: QUEtiapine FUMARATE 200 MG TABLET PO SCH (21:09)
[2020-10-15] MEDS: MELATONIN 5 MG TABLETS PO SCH (21:09)
[2020-10-15] MEDS: THIAMINE HCL 100 MG TABLET (FP) PO SCH (21:10)
[2020-10-15] MEDS: LIDOCAINE PATCH REMOVAL MC SCH (21:36)
[2020-10-16] MEDS: METHOCARBAMOL 500 MG TABLET PO PRN ×4 (06:01→21:07)
[2020-10-16] MEDS: GABAPENTIN 300 MG CAPSULE PO SCH ×3 (06:01→21:07)
[2020-10-16] MEDS: METHADONE HCL 40 MG DISPERSABLE TABLET PO SCH (06:01)
[2020-10-16] MEDS: hydrOXYzine PAMOATE 25 MG CAPSULE (FP) PO PRN ×4 (06:02→21:07)
[2020-10-16] MEDS: LIDOCAINE 5% TOPICAL PATCH TP SCH (10:04)
[2020-10-16] MEDS: amLODIPine BESYLATE 10 MG TABLET (FP) PO SCH (10:05)
[2020-10-16] MEDS: PRENATAL VITAMINS W/ FOLIC ACID TABLET (FP) PO SCH (10:05)
[2020-10-16] MEDS: NICOTINE 7 MG/24 HOURS TOPICAL PATCH TD SCH (10:05)
[2020-10-16] MEDS: IBUPROFEN 400 MG TABLET (FP) PO PRN (10:06)
[2020-10-16] MEDS: QUEtiapine FUMARATE 50 MG TABLET PO SCH ×2 (10:06→17:26)
[2020-10-16] MEDS: DOCUSATE SODIUM 100 MG CAPSULE (FP) PO SCH ×2 (14:16→21:07)
[2020-10-16] MEDS: IBUPROFEN 600 MG TABLET (FP) PO PRN ×2 (14:16→21:08)
[2020-10-16] MEDS: QUEtiapine FUMARATE 200 MG TABLET PO SCH (21:07)
[2020-10-16] MEDS: THIAMINE HCL 100 MG TABLET (FP) PO SCH (21:08)
[2020-10-16] MEDS: MELATONIN 5 MG TABLETS PO SCH (21:08)
[2020-10-16] MEDS: LIDOCAINE PATCH REMOVAL MC SCH (21:09)
[2020-10-17] MEDS: GABAPENTIN 300 MG CAPSULE PO SCH ×3 (06:04→21:35)
[2020-10-17] MEDS: DOCUSATE SODIUM 100 MG CAPSULE (FP) PO SCH ×3 (06:05→21:35)
[2020-10-17] MEDS: METHADONE HCL 40 MG DISPERSABLE TABLET PO SCH (06:05)
[2020-10-17] MEDS: METHOCARBAMOL 500 MG TABLET PO PRN ×4 (06:05→21:36)
[2020-10-17] MEDS: hydrOXYzine PAMOATE 25 MG CAPSULE (FP) PO PRN ×4 (06:05→21:36)
[2020-10-17] MEDS: IBUPROFEN 600 MG TABLET (FP) PO PRN ×2 (06:06→13:35)
[2020-10-17] MEDS: PRENATAL VITAMINS W/ FOLIC ACID TABLET (FP) PO SCH (10:13)
[2020-10-17] MEDS: amLODIPine BESYLATE 10 MG TABLET (FP) PO SCH (10:14)
[2020-10-17] MEDS: LIDOCAINE 5% TOPICAL PATCH TP SCH (10:14)
[2020-10-17] MEDS: NICOTINE 7 MG/24 HOURS TOPICAL PATCH TD SCH (10:14)
[2020-10-17] MEDS: QUEtiapine FUMARATE 50 MG TABLET PO SCH ×2 (10:15→15:41)
[2020-10-17] MEDS: QUEtiapine FUMARATE 200 MG TABLET PO SCH (21:35)
[2020-10-17] MEDS: MELATONIN 5 MG TABLETS PO SCH (21:35)
[2020-10-17] MEDS: THIAMINE HCL 100 MG TABLET (FP) PO SCH (21:35)
[2020-10-17] MEDS: LIDOCAINE PATCH REMOVAL MC SCH (21:36)
[2020-10-18] MEDS: hydrOXYzine PAMOATE 25 MG CAPSULE (FP) PO PRN ×3 (06:00→22:03)
[2020-10-18] MEDS: METHOCARBAMOL 500 MG TABLET PO PRN ×3 (06:00→22:03)
[2020-10-18] MEDS: METHADONE HCL 40 MG DISPERSABLE TABLET PO SCH (06:00)
[2020-10-18] MEDS: DOCUSATE SODIUM 100 MG CAPSULE (FP) PO SCH ×3 (06:00→22:02)
[2020-10-18] MEDS: GABAPENTIN 300 MG CAPSULE PO SCH ×3 (06:00→22:02)
[2020-10-18] MEDS: amLODIPine BESYLATE 10 MG TABLET (FP) PO SCH (09:31)
[2020-10-18] MEDS: NICOTINE 7 MG/24 HOURS TOPICAL PATCH TD SCH (09:31)
[2020-10-18] MEDS: QUEtiapine FUMARATE 50 MG TABLET PO SCH ×2 (09:31→15:48)
[2020-10-18] MEDS: PRENATAL VITAMINS W/ FOLIC ACID TABLET (FP) PO SCH (09:32)
[2020-10-18] MEDS: LIDOCAINE 5% TOPICAL PATCH TP SCH (09:32)
[2020-10-18] MEDS: IBUPROFEN 600 MG TABLET (FP) PO PRN ×2 (09:33→22:03)
[2020-10-18] MEDS: THIAMINE HCL 100 MG TABLET (FP) PO SCH (22:02)
[2020-10-18] MEDS: QUEtiapine FUMARATE 200 MG TABLET PO SCH (22:02)
[2020-10-18] MEDS: MELATONIN 5 MG TABLETS PO SCH (22:02)
[2020-10-18] MEDS: LIDOCAINE PATCH REMOVAL MC SCH (22:03)
[2020-10-19] MEDS: METHADONE HCL 40 MG DISPERSABLE TABLET PO SCH (06:15)
[2020-10-19] MEDS: hydrOXYzine PAMOATE 25 MG CAPSULE (FP) PO PRN ×3 (06:16→21:28)
[2020-10-19] MEDS: DOCUSATE SODIUM 100 MG CAPSULE (FP) PO SCH ×3 (06:16→21:26)
[2020-10-19] MEDS: METHOCARBAMOL 500 MG TABLET PO PRN ×3 (06:16→21:27)
[2020-10-19] MEDS: GABAPENTIN 300 MG CAPSULE PO SCH ×3 (06:16→21:26)
[2020-10-19] MEDS: IBUPROFEN 600 MG TABLET (FP) PO PRN ×2 (09:37→21:27)
[2020-10-19] MEDS: QUEtiapine FUMARATE 50 MG TABLET PO SCH ×2 (09:37→15:37)
[2020-10-19] MEDS: PRENATAL VITAMINS W/ FOLIC ACID TABLET (FP) PO SCH (09:37)
[2020-10-19] MEDS: LIDOCAINE 5% TOPICAL PATCH TP SCH (09:37)
[2020-10-19] MEDS: amLODIPine BESYLATE 10 MG TABLET (FP) PO SCH (09:37)
[2020-10-19] MEDS: NICOTINE 7 MG/24 HOURS TOPICAL PATCH TD SCH (09:38)
[2020-10-19] MEDS: THIAMINE HCL 100 MG TABLET (FP) PO SCH (21:26)
[2020-10-19] MEDS: QUEtiapine FUMARATE 200 MG TABLET PO SCH (21:26)
[2020-10-19] MEDS: MELATONIN 5 MG TABLETS PO SCH (21:26)
[2020-10-19] MEDS: LIDOCAINE PATCH REMOVAL MC SCH (21:28)
[2020-10-20] MEDS: DOCUSATE SODIUM 100 MG CAPSULE (FP) PO SCH ×3 (05:59→21:14)
[2020-10-20] MEDS: METHOCARBAMOL 500 MG TABLET PO PRN ×3 (05:59→21:17)
[2020-10-20] MEDS: hydrOXYzine PAMOATE 25 MG CAPSULE (FP) PO PRN ×4 (05:59→21:14)
[2020-10-20] MEDS: GABAPENTIN 300 MG CAPSULE PO SCH ×3 (05:59→21:13)
[2020-10-20] MEDS: METHADONE HCL 40 MG DISPERSABLE TABLET PO SCH (05:59)
[2020-10-20] MEDS: NICOTINE 7 MG/24 HOURS TOPICAL PATCH TD SCH (09:59)
[2020-10-20] MEDS: amLODIPine BESYLATE 10 MG TABLET (FP) PO SCH (09:59)
[2020-10-20] MEDS: PRENATAL VITAMINS W/ FOLIC ACID TABLET (FP) PO SCH (09:59)
[2020-10-20] MEDS: LIDOCAINE 5% TOPICAL PATCH TP SCH (09:59)
[2020-10-20] MEDS: QUEtiapine FUMARATE 50 MG TABLET PO SCH ×2 (09:59→16:11)
[2020-10-20] MEDS: IBUPROFEN 600 MG TABLET (FP) PO PRN ×2 (10:00→21:14)
[2020-10-20] MEDS: THIAMINE HCL 100 MG TABLET (FP) PO SCH (21:14)
[2020-10-20] MEDS: QUEtiapine FUMARATE 200 MG TABLET PO SCH (21:14)
[2020-10-20] MEDS: MELATONIN 5 MG TABLETS PO SCH (21:17)
[2020-10-20] MEDS: LIDOCAINE PATCH REMOVAL MC SCH (22:08)
[2020-10-21] MEDS: DOCUSATE SODIUM 100 MG CAPSULE (FP) PO SCH ×3 (05:57→21:29)
[2020-10-21] MEDS: hydrOXYzine PAMOATE 25 MG CAPSULE (FP) PO PRN ×4 (05:57→21:28)
[2020-10-21] MEDS: GABAPENTIN 300 MG CAPSULE PO SCH ×3 (05:57→21:29)
[2020-10-21] MEDS: METHOCARBAMOL 500 MG TABLET PO PRN ×3 (05:57→21:29)
[2020-10-21] MEDS: METHADONE HCL 40 MG DISPERSABLE TABLET PO SCH (05:57)
[2020-10-21] MEDS ORDERED: PT OWN MED DRAWER 7, Y5N ONE (09:18)
[2020-10-21] MEDS: LIDOCAINE 5% TOPICAL PATCH TP SCH (10:09)
[2020-10-21] MEDS: amLODIPine BESYLATE 10 MG TABLET (FP) PO SCH (10:09)
[2020-10-21] MEDS: NICOTINE 7 MG/24 HOURS TOPICAL PATCH TD SCH (10:09)
[2020-10-21] MEDS: IBUPROFEN 600 MG TABLET (FP) PO PRN ×2 (10:10→21:28)
[2020-10-21] MEDS: PRENATAL VITAMINS W/ FOLIC ACID TABLET (FP) PO SCH (10:13)
[2020-10-21] MEDS: QUEtiapine FUMARATE 50 MG TABLET PO SCH ×2 (10:13→17:23)
[2020-10-21] MEDS: THIAMINE HCL 100 MG TABLET (FP) PO SCH (21:28)
[2020-10-21] MEDS: MELATONIN 5 MG TABLETS PO SCH (21:29)
[2020-10-21] MEDS: QUEtiapine FUMARATE 200 MG TABLET PO SCH (21:29)
[2020-10-21] MEDS: LIDOCAINE PATCH REMOVAL MC SCH (22:45)
[2020-10-22] MEDS: GABAPENTIN 300 MG CAPSULE PO SCH ×3 (05:58→21:13)
[2020-10-22] MEDS: hydrOXYzine PAMOATE 25 MG CAPSULE (FP) PO PRN ×4 (05:58→21:14)
[2020-10-22] MEDS: DOCUSATE SODIUM 100 MG CAPSULE (FP) PO SCH ×3 (05:58→21:14)
[2020-10-22] MEDS: METHOCARBAMOL 500 MG TABLET PO PRN ×3 (05:58→21:13)
[2020-10-22] MEDS: METHADONE HCL 40 MG DISPERSABLE TABLET PO SCH (05:58)
[2020-10-22] MEDS: IBUPROFEN 600 MG TABLET (FP) PO PRN ×3 (05:59→21:14)
[2020-10-22] MEDS: PRENATAL VITAMINS W/ FOLIC ACID TABLET (FP) PO SCH (09:46)
[2020-10-22] MEDS: LIDOCAINE 5% TOPICAL PATCH TP SCH ×2 (09:46→10:39)
[2020-10-22] MEDS: QUEtiapine FUMARATE 50 MG TABLET PO SCH ×2 (09:46→16:08)
[2020-10-22] MEDS: amLODIPine BESYLATE 10 MG TABLET (FP) PO SCH (09:46)
[2020-10-22] MEDS: NICOTINE 7 MG/24 HOURS TOPICAL PATCH TD SCH (09:47)
[2020-10-22] MEDS ORDERED: ACETAMINOPHEN 325 MG TABLET (FP) PO PRN (10:28)
[2020-10-22] MEDS: MELATONIN 5 MG TABLETS PO SCH (21:13)
[2020-10-22] MEDS: THIAMINE HCL 100 MG TABLET (FP) PO SCH (21:13)
[2020-10-22] MEDS: QUEtiapine FUMARATE 200 MG TABLET PO SCH (21:14)
[2020-10-22] MEDS: LIDOCAINE PATCH REMOVAL MC SCH ×2 (21:15)
[2020-10-23] MEDS: METHADONE HCL 40 MG DISPERSABLE TABLET PO SCH (05:56)
[2020-10-23] MEDS: METHOCARBAMOL 500 MG TABLET PO PRN ×3 (05:57→21:07)
[2020-10-23] MEDS: hydrOXYzine PAMOATE 25 MG CAPSULE (FP) PO PRN ×3 (05:57→21:07)
[2020-10-23] MEDS: DOCUSATE SODIUM 100 MG CAPSULE (FP) PO SCH ×3 (05:57→21:07)
[2020-10-23] MEDS: GABAPENTIN 300 MG CAPSULE PO SCH ×3 (05:57→21:07)
[2020-10-23] MEDS: IBUPROFEN 600 MG TABLET (FP) PO PRN ×4 (05:57→21:07)
[2020-10-23] MEDS: NICOTINE 7 MG/24 HOURS TOPICAL PATCH TD SCH (09:49)
[2020-10-23] MEDS: QUEtiapine FUMARATE 50 MG TABLET PO SCH ×2 (09:49→15:25)
[2020-10-23] MEDS: PRENATAL VITAMINS W/ FOLIC ACID TABLET (FP) PO SCH (09:49)
[2020-10-23] MEDS: LIDOCAINE 5% TOPICAL PATCH TP SCH ×2 (09:49)
[2020-10-23] MEDS: amLODIPine BESYLATE 10 MG TABLET (FP) PO SCH (09:49)
[2020-10-23] MEDS: QUEtiapine FUMARATE 200 MG TABLET PO SCH (21:07)
[2020-10-23] MEDS: MELATONIN 5 MG TABLETS PO SCH (21:07)
[2020-10-23] MEDS: THIAMINE HCL 100 MG TABLET (FP) PO SCH (21:07)
[2020-10-23] MEDS: LIDOCAINE PATCH REMOVAL MC SCH ×2 (21:08)
[2020-10-24] MEDS: GABAPENTIN 300 MG CAPSULE PO SCH ×3 (06:05→21:29)
[2020-10-24] MEDS: METHADONE HCL 40 MG DISPERSABLE TABLET PO SCH (06:05)
[2020-10-24] MEDS: IBUPROFEN 600 MG TABLET (FP) PO PRN ×3 (06:05→21:29)
[2020-10-24] MEDS: hydrOXYzine PAMOATE 25 MG CAPSULE (FP) PO PRN ×3 (06:05→21:29)
[2020-10-24] MEDS: METHOCARBAMOL 500 MG TABLET PO PRN ×3 (06:05→21:29)
[2020-10-24] MEDS: DOCUSATE SODIUM 100 MG CAPSULE (FP) PO SCH ×3 (06:06→21:29)
[2020-10-24] MEDS: PRENATAL VITAMINS W/ FOLIC ACID TABLET (FP) PO SCH (09:56)
[2020-10-24] MEDS: NICOTINE 7 MG/24 HOURS TOPICAL PATCH TD SCH (09:56)
[2020-10-24] MEDS: amLODIPine BESYLATE 10 MG TABLET (FP) PO SCH (09:56)
[2020-10-24] MEDS: LIDOCAINE 5% TOPICAL PATCH TP SCH ×2 (09:56)
[2020-10-24] MEDS: QUEtiapine FUMARATE 50 MG TABLET PO SCH ×2 (09:59→16:33)
[2020-10-24] MEDS: QUEtiapine FUMARATE 200 MG TABLET PO SCH (21:29)
[2020-10-24] MEDS: MELATONIN 5 MG TABLETS PO SCH (21:29)
[2020-10-24] MEDS: THIAMINE HCL 100 MG TABLET (FP) PO SCH (21:29)
[2020-10-24] MEDS: LIDOCAINE PATCH REMOVAL MC SCH ×2 (21:30)
[2020-10-25] MEDS: DOCUSATE SODIUM 100 MG CAPSULE (FP) PO SCH ×3 (06:24→21:12)
[2020-10-25] MEDS: hydrOXYzine PAMOATE 25 MG CAPSULE (FP) PO PRN ×4 (06:25→21:13)
[2020-10-25] MEDS: GABAPENTIN 300 MG CAPSULE PO SCH ×3 (06:25→21:11)
[2020-10-25] MEDS: IBUPROFEN 600 MG TABLET (FP) PO PRN ×3 (06:25→21:12)
[2020-10-25] MEDS: METHOCARBAMOL 500 MG TABLET PO PRN ×3 (06:25→21:12)
[2020-10-25] MEDS: METHADONE HCL 40 MG DISPERSABLE TABLET PO SCH (06:25)
[2020-10-25] MEDS: PRENATAL VITAMINS W/ FOLIC ACID TABLET (FP) PO SCH (09:50)
[2020-10-25] MEDS: amLODIPine BESYLATE 10 MG TABLET (FP) PO SCH (09:50)
[2020-10-25] MEDS: LIDOCAINE 5% TOPICAL PATCH TP SCH ×2 (09:50)
[2020-10-25] MEDS: NICOTINE 7 MG/24 HOURS TOPICAL PATCH TD SCH (09:51)
[2020-10-25] MEDS: QUEtiapine FUMARATE 50 MG TABLET PO SCH ×2 (09:52→15:16)
[2020-10-25] MEDS: QUEtiapine FUMARATE 200 MG TABLET PO SCH (21:11)
[2020-10-25] MEDS: MELATONIN 5 MG TABLETS PO SCH (21:12)
[2020-10-25] MEDS: THIAMINE HCL 100 MG TABLET (FP) PO SCH (21:13)
[2020-10-25] MEDS: LIDOCAINE PATCH REMOVAL MC SCH ×2 (21:14)
[2020-10-26] MEDS: METHOCARBAMOL 500 MG TABLET PO PRN ×3 (06:02→22:45)
[2020-10-26] MEDS: IBUPROFEN 600 MG TABLET (FP) PO PRN ×3 (06:02→22:46)
[2020-10-26] MEDS: METHADONE HCL 40 MG DISPERSABLE TABLET PO SCH (06:02)
[2020-10-26] MEDS: hydrOXYzine PAMOATE 25 MG CAPSULE (FP) PO PRN ×4 (06:02→22:45)
[2020-10-26] MEDS: GABAPENTIN 300 MG CAPSULE PO SCH ×3 (06:02→22:45)
[2020-10-26] MEDS: DOCUSATE SODIUM 100 MG CAPSULE (FP) PO SCH ×3 (06:02→22:45)
[2020-10-26] MEDS: amLODIPine BESYLATE 10 MG TABLET (FP) PO SCH (10:24)
[2020-10-26] MEDS: LIDOCAINE 5% TOPICAL PATCH TP SCH ×2 (10:24)
[2020-10-26] MEDS: PRENATAL VITAMINS W/ FOLIC ACID TABLET (FP) PO SCH (10:24)
[2020-10-26] MEDS: NICOTINE 7 MG/24 HOURS TOPICAL PATCH TD SCH (10:25)
[2020-10-26] MEDS: QUEtiapine FUMARATE 50 MG TABLET PO SCH ×2 (10:25→16:50)
[2020-10-26] MEDS: QUEtiapine FUMARATE 200 MG TABLET PO SCH (22:45)
[2020-10-26] MEDS: THIAMINE HCL 100 MG TABLET (FP) PO SCH (22:46)
[2020-10-26] MEDS: MELATONIN 5 MG TABLETS PO SCH (22:46)
[2020-10-26] MEDS: LIDOCAINE PATCH REMOVAL MC SCH ×2 (22:48)
[2020-10-27] MEDS: METHADONE HCL 40 MG DISPERSABLE TABLET PO SCH (06:06)
[2020-10-27] MEDS: GABAPENTIN 300 MG CAPSULE PO SCH ×3 (06:07→21:10)
[2020-10-27] MEDS: hydrOXYzine PAMOATE 25 MG CAPSULE (FP) PO PRN ×3 (06:07→21:11)
[2020-10-27] MEDS: DOCUSATE SODIUM 100 MG CAPSULE (FP) PO SCH ×3 (06:07→21:10)
[2020-10-27] MEDS: IBUPROFEN 600 MG TABLET (FP) PO PRN ×3 (06:07→21:11)
[2020-10-27] MEDS: METHOCARBAMOL 500 MG TABLET PO PRN ×3 (06:07→21:11)
[2020-10-27] MEDS: LIDOCAINE 5% TOPICAL PATCH TP SCH ×2 (10:01→10:02)
[2020-10-27] MEDS: PRENATAL VITAMINS W/ FOLIC ACID TABLET (FP) PO SCH (10:02)
[2020-10-27] MEDS: QUEtiapine FUMARATE 50 MG TABLET PO SCH ×2 (10:02→16:50)
[2020-10-27] MEDS: NICOTINE 7 MG/24 HOURS TOPICAL PATCH TD SCH (10:02)
[2020-10-27] MEDS: amLODIPine BESYLATE 10 MG TABLET (FP) PO SCH (10:02)
[2020-10-27] MEDS: TOLNAFTATE 1% CREAM 15 GM TUBE TP SCH ×2 (10:35→21:12)
[2020-10-27] MEDS: MELATONIN 5 MG TABLETS PO SCH (21:10)
[2020-10-27] MEDS: THIAMINE HCL 100 MG TABLET (FP) PO SCH (21:10)
[2020-10-27] MEDS: QUEtiapine FUMARATE 200 MG TABLET PO SCH (21:10)
[2020-10-27] MEDS: LIDOCAINE PATCH REMOVAL MC SCH ×2 (21:12)
[2020-10-28] MEDS: DOCUSATE SODIUM 100 MG CAPSULE (FP) PO SCH ×3 (06:03→21:42)
[2020-10-28] MEDS: GABAPENTIN 300 MG CAPSULE PO SCH ×3 (06:03→21:42)
[2020-10-28] MEDS: hydrOXYzine PAMOATE 25 MG CAPSULE (FP) PO PRN ×4 (06:03→21:42)
[2020-10-28] MEDS: METHOCARBAMOL 500 MG TABLET PO PRN ×3 (06:03→21:42)
[2020-10-28] MEDS: IBUPROFEN 600 MG TABLET (FP) PO PRN ×3 (06:03→21:41)
[2020-10-28] MEDS: METHADONE HCL 40 MG DISPERSABLE TABLET PO SCH (06:03)
[2020-10-28] MEDS: PRENATAL VITAMINS W/ FOLIC ACID TABLET (FP) PO SCH (10:03)
[2020-10-28] MEDS: amLODIPine BESYLATE 10 MG TABLET (FP) PO SCH (10:03)
[2020-10-28] MEDS: NICOTINE 7 MG/24 HOURS TOPICAL PATCH TD SCH (10:04)
[2020-10-28] MEDS: LIDOCAINE 5% TOPICAL PATCH TP SCH ×2 (10:04)
[2020-10-28] MEDS: QUEtiapine FUMARATE 50 MG TABLET PO SCH ×2 (10:05→16:28)
[2020-10-28] MEDS: TOLNAFTATE 1% CREAM 15 GM TUBE TP SCH ×2 (10:07→21:43)
[2020-10-28] MEDS: THIAMINE HCL 100 MG TABLET (FP) PO SCH (21:41)
[2020-10-28] MEDS: MELATONIN 5 MG TABLETS PO SCH (21:41)
[2020-10-28] MEDS: QUEtiapine FUMARATE 200 MG TABLET PO SCH (21:42)
[2020-10-28] MEDS: LIDOCAINE PATCH REMOVAL MC SCH ×2 (21:43)
[2020-10-29] MEDS: METHADONE HCL 40 MG DISPERSABLE TABLET PO SCH (05:54)
[2020-10-29] MEDS: hydrOXYzine PAMOATE 25 MG CAPSULE (FP) PO PRN ×4 (05:55→21:12)
[2020-10-29] MEDS: IBUPROFEN 600 MG TABLET (FP) PO PRN ×4 (05:55→21:12)
[2020-10-29] MEDS: METHOCARBAMOL 500 MG TABLET PO PRN ×3 (05:55→21:12)
[2020-10-29] MEDS: GABAPENTIN 300 MG CAPSULE PO SCH ×3 (05:55→21:12)
[2020-10-29] MEDS: DOCUSATE SODIUM 100 MG CAPSULE (FP) PO SCH ×3 (05:55→21:12)
[2020-10-29] MEDS: LIDOCAINE 5% TOPICAL PATCH TP SCH ×2 (10:12)
[2020-10-29] MEDS: amLODIPine BESYLATE 10 MG TABLET (FP) PO SCH (10:13)
[2020-10-29] MEDS: PRENATAL VITAMINS W/ FOLIC ACID TABLET (FP) PO SCH (10:13)
[2020-10-29] MEDS: NICOTINE 7 MG/24 HOURS TOPICAL PATCH TD SCH (10:13)
[2020-10-29] MEDS: QUEtiapine FUMARATE 50 MG TABLET PO SCH ×2 (10:14→16:02)
[2020-10-29] MEDS: TOLNAFTATE 1% CREAM 15 GM TUBE TP SCH ×2 (10:23→21:13)
[2020-10-29] MEDS: THIAMINE HCL 100 MG TABLET (FP) PO SCH (21:11)
[2020-10-29] MEDS: MELATONIN 5 MG TABLETS PO SCH (21:11)
[2020-10-29] MEDS: QUEtiapine FUMARATE 200 MG TABLET PO SCH (21:12)
[2020-10-29] MEDS: LIDOCAINE PATCH REMOVAL MC SCH ×2 (21:13)
[2020-10-30] MEDS: DOCUSATE SODIUM 100 MG CAPSULE (FP) PO SCH (05:59)
[2020-10-30] MEDS: METHADONE HCL 40 MG DISPERSABLE TABLET PO SCH (05:59)
[2020-10-30] MEDS: IBUPROFEN 600 MG TABLET (FP) PO PRN ×2 (05:59→09:07)
[2020-10-30] MEDS: GABAPENTIN 300 MG CAPSULE PO SCH (05:59)
[2020-10-30] MEDS: METHOCARBAMOL 500 MG TABLET PO PRN (05:59)
[2020-10-30] MEDS: hydrOXYzine PAMOATE 25 MG CAPSULE (FP) PO PRN ×2 (05:59→09:06)
[2020-10-30 06:37] VITALS: BP 125/87; PULSE 62; TEMP 98.6
[2020-10-30] MEDS: NICOTINE 7 MG/24 HOURS TOPICAL PATCH TD SCH (09:06)
[2020-10-30] MEDS: TOLNAFTATE 1% CREAM 15 GM TUBE TP SCH (09:06)
[2020-10-30] MEDS: LIDOCAINE 5% TOPICAL PATCH TP SCH ×2 (09:06)
[2020-10-30] MEDS: PRENATAL VITAMINS W/ FOLIC ACID TABLET (FP) PO SCH (09:06)
[2020-10-30] MEDS: amLODIPine BESYLATE 10 MG TABLET (FP) PO SCH (09:06)
[2020-10-30] MEDS: QUEtiapine FUMARATE 50 MG TABLET PO SCH (09:06)
== END 2020-10-30 09:38 | disposition home or self-care (01) | DRG 772 ==
LOC: YASAS 14:42 → Y3W 14:43
PROVIDERS: ADMIT Allergy & Immunology; ATTEND Allergy & Immunology
PROC: HZ42ZZZ Group Counseling for Substance Abuse Treatment, Cognitive-Behavioral (ICD-10-PCS; principal; 2020-10-14)
DX: F11.20 Opioid dependence, uncomplicated (principal); F14.20 Cocaine dependence, uncomplicated; F13.20 Sedative, hypnotic or anxiolytic dependence, uncomplicated; F19.280 Other psychoactive substance dependence with psychoactive substance-induced anxiety disorder; F19.282 Other psychoactive substance dependence with psychoactive substance-induced sleep disorder; F19.24 Other psychoactive substance dependence with psychoactive substance-induced mood disorder; I10 Essential (primary) hypertension; K64.9 Unspecified hemorrhoids; B35.3 Tinea pedis; M54.5 Low back pain; M25.511 Pain in right shoulder; Z87.81 Personal history of (healed) traumatic fracture; Z56.0 Unemployment, unspecified; Z59.0 Homelessness

== ENCOUNTER 2021-01-29 12:45 | Inpatient (IN) | payer OTHER ==
[2021-01-29] MEDS ORDERED: ACETAMINOPHEN 325 MG TABLET (FP) PO PRN ×2 (14:47)
[2021-01-29] MEDS ORDERED: ONDANSETRON *ODT* 4 MG TABLET SL PRN (14:47)
[2021-01-29] MEDS ORDERED: MAGNESIUM CITRATE 300 ML BOTTLE PO PRN (14:47)
[2021-01-29] MEDS ORDERED: NICOTINE 10 MG CARTRIDGE (INHALER) IH PRN (14:47)
[2021-01-29] MEDS ORDERED: MENTHOL/PHENOL 1 EACH UD MM PRN (14:47)
[2021-01-29] MEDS ORDERED: MAG HYDROX/AL HYDROX/SIMETH 30 ML UNIT-DOSE CUP PO PRN (14:47)
[2021-01-29] MEDS ORDERED: NALOXONE (NARCAN) HCL 4 MG/0.1 ML SPRAY NS PRN (14:47)
[2021-01-29] MEDS ORDERED: MAGNESIUM HYDROX 2400MG/30ML ORAL SUSPENSION 30 ML CUP PO PRN (14:47)
[2021-01-29] MEDS ORDERED: BISMUTH SUBSALICYLATE 524 MG/30 ML PO PRN (14:47)
[2021-01-29] MEDS ORDERED: IBUPROFEN 400 MG TABLET (FP) PO PRN (14:47)
[2021-01-29 15:10] VITALS: BMI 25.2
[2021-01-29] MEDS ORDERED: methaDONE HCL 10 MG TABLET (FOR DETOX USE ONLY) PO ONE (15:15)
[2021-01-29 17:02] LABS: HEMATOCRIT 37.4 % (35.4-49); HEMOGLOBIN 12.8 GM/dL (11.7-16.9); MCH 32.1 pg (25.7-33.7); MCHC 34.3 g/dl (32.0-35.9); MEAN CELL VOLUME 93.4 fl (80-96); MEAN PLT VOLUME 7.7 fl (7.5-11.1); PLATELET COUNT 228 10^3/uL (134-434); RBC 4.01 M/mm3 (4.00-5.60); RDW 13.9 % (11.9-15.9); WHITE BLOOD COUNT 6.2 K/mm3 (4.0-10.0)
[2021-01-29 17:40] LABS: BLOOD UREA NITROGEN 7.9 mg/dL (7-18)
[2021-01-29 17:41] LABS: CALCIUM 8.4 mg/dL (8.5-10.1)
[2021-01-29] MEDS: hydrOXYzine PAMOATE 25 MG CAPSULE (FP) PO SCH ×2 (17:42→22:47)
[2021-01-29] MEDS: cloNIDine HCL 0.1 MG TABLET PO PRN (17:42)
[2021-01-29] MEDS: clonazePAM 0.5 MG ODT TABLETS SL PRN (17:42)
[2021-01-29 17:44] LABS: CREATININE 0.8 mg/dL (0.55-1.3)
[2021-01-29 17:45] LABS: BILIRUBIN,TOTAL 0.4 mg/dL (0.2-1); TOT PROT 6.8 g/dl (6.4-8.2)
[2021-01-29] MEDS: MELATONIN 5 MG TABLETS PO SCH (22:48)
[2021-01-29] MEDS: THIAMINE HCL 100 MG TABLET (FP) PO SCH (22:48)
[2021-01-30] MEDS: clonazePAM 0.5 MG ODT TABLETS SL PRN (06:09)
[2021-01-30] MEDS: hydrOXYzine PAMOATE 25 MG CAPSULE (FP) PO SCH ×2 (06:10→10:42)
[2021-01-30] MEDS ORDERED: methaDONE HCL 10 MG TABLET (FOR DETOX USE ONLY) ONE (08:59)
[2021-01-30] MEDS: amLODIPine BESYLATE 10 MG TABLET (FP) PO SCH (10:42)
[2021-01-30] MEDS: METHOCARBAMOL 500 MG TABLET PO PRN (10:44)
[2021-01-30] MEDS: diazePAM 5 MG TABLET PO PRN (22:00)
[2021-01-30] MEDS: MELATONIN 5 MG TABLETS PO SCH (22:00)
[2021-01-30] MEDS: QUEtiapine FUMARATE 100 MG TABLET (FP) PO SCH (22:00)
[2021-01-30] MEDS: THIAMINE HCL 100 MG TABLET (FP) PO SCH (22:00)
[2021-01-31] MEDS ORDERED: methaDONE HCL 10 MG TABLET (FOR DETOX USE ONLY) PO ONE (10:00)
[2021-01-31] MEDS: QUEtiapine FUMARATE 50 MG TABLET PO SCH ×2 (10:54→18:07)
[2021-01-31] MEDS: amLODIPine BESYLATE 10 MG TABLET (FP) PO SCH (10:54)
[2021-01-31] MEDS: MELATONIN 5 MG TABLETS PO SCH (23:07)
[2021-01-31] MEDS: hydrOXYzine PAMOATE 25 MG CAPSULE (FP) PO PRN (23:07)
[2021-01-31] MEDS: diazePAM 5 MG TABLET PO PRN (23:10)
[2021-01-31] MEDS: QUEtiapine FUMARATE 100 MG TABLET (FP) PO SCH (23:11)
[2021-01-31] MEDS: METHOCARBAMOL 500 MG TABLET PO PRN (23:11)
[2021-01-31] MEDS: cloNIDine HCL 0.1 MG TABLET PO PRN (23:13)
[2021-01-31] MEDS: THIAMINE HCL 100 MG TABLET (FP) PO SCH (23:19)
[2021-02-01] MEDS: diazePAM 5 MG TABLET PO PRN ×2 (06:16→22:26)
[2021-02-01] MEDS: METHOCARBAMOL 500 MG TABLET PO PRN ×2 (06:17→22:25)
[2021-02-01] MEDS: hydrOXYzine PAMOATE 25 MG CAPSULE (FP) PO PRN ×4 (06:17→22:26)
[2021-02-01] MEDS ORDERED: methaDONE HCL 10 MG TABLET (FOR DETOX USE ONLY) ONE (09:33)
[2021-02-01] MEDS: amLODIPine BESYLATE 10 MG TABLET (FP) PO SCH (10:57)
[2021-02-01] MEDS: QUEtiapine FUMARATE 50 MG TABLET PO SCH ×2 (10:58→17:39)
[2021-02-01] MEDS: MELATONIN 5 MG TABLETS PO SCH (22:25)
[2021-02-01] MEDS: QUEtiapine FUMARATE 100 MG TABLET (FP) PO SCH (22:25)
[2021-02-01] MEDS: THIAMINE HCL 100 MG TABLET (FP) PO SCH (22:27)
[2021-02-02] MEDS: diazePAM 5 MG TABLET PO PRN ×2 (06:00→10:38)
[2021-02-02] MEDS: hydrOXYzine PAMOATE 25 MG CAPSULE (FP) PO PRN ×3 (06:01→22:37)
[2021-02-02] MEDS: METHOCARBAMOL 500 MG TABLET PO PRN ×3 (06:01→22:37)
[2021-02-02] MEDS ORDERED: methaDONE HCL 10 MG TABLET (FOR DETOX USE ONLY) PO ONE (10:00)
[2021-02-02] MEDS: QUEtiapine FUMARATE 50 MG TABLET PO SCH ×2 (10:37→16:59)
[2021-02-02] MEDS: amLODIPine BESYLATE 10 MG TABLET (FP) PO SCH (10:41)
[2021-02-02] MEDS: THIAMINE HCL 100 MG TABLET (FP) PO SCH (22:37)
[2021-02-02] MEDS: MELATONIN 5 MG TABLETS PO SCH (22:37)
[2021-02-02] MEDS: QUEtiapine FUMARATE 100 MG TABLET (FP) PO SCH (22:37)
[2021-02-03] MEDS: METHOCARBAMOL 500 MG TABLET PO PRN (06:00)
[2021-02-03] MEDS: hydrOXYzine PAMOATE 25 MG CAPSULE (FP) PO PRN (06:00)
[2021-02-03 07:41] VITALS: BP 124/96; PULSE 67; TEMP 97
[2021-02-03] MEDS: amLODIPine BESYLATE 10 MG TABLET (FP) PO SCH (09:26)
[2021-02-03] MEDS: QUEtiapine FUMARATE 50 MG TABLET PO SCH (09:26)
== END 2021-02-03 09:35 | disposition home or self-care (01) | DRG 773 ==
LOC: YASAS 12:45 → Y3N 16:30
PROVIDERS: ADMIT Allergy & Immunology; ATTEND Allergy & Immunology
PROC: HZ2ZZZZ Detoxification Services for Substance Abuse Treatment (ICD-10-PCS; principal; 2021-01-29)
DX: F11.23 Opioid dependence with withdrawal (principal); F14.20 Cocaine dependence, uncomplicated; F12.20 Cannabis dependence, uncomplicated; F17.210 Nicotine dependence, cigarettes, uncomplicated; F19.280 Other psychoactive substance dependence with psychoactive substance-induced anxiety disorder; F19.24 Other psychoactive substance dependence with psychoactive substance-induced mood disorder; F39 Unspecified mood [affective] disorder; E88.09 Other disorders of plasma-protein metabolism, not elsewhere classified; I10 Essential (primary) hypertension; G47.00 Insomnia, unspecified; Z87.19 Personal history of other diseases of the digestive system; Z56.0 Unemployment, unspecified; Z59.0 Homelessness; Z91.19 Patient's noncompliance with other medical treatment and regimen
CPT/HCPCS: 36415; 80053; 85027; 86780; C9803; J0735; U0003; U0005

== ENCOUNTER 2021-10-13 13:40 | Inpatient (IN) | payer OTHER ==
[2021-10-13 14:46] VITALS: BMI 21.8
[2021-10-13] MEDS ORDERED: METHOCARBAMOL 500 MG TABLET PO PRN (15:29)
[2021-10-13] MEDS ORDERED: BENZOCAINE/MENTHOL (CHLORASEPTIC ) LOZENGE MM PRN (15:29)
[2021-10-13] MEDS ORDERED: IBUPROFEN 600 MG TABLET (FP) PO PRN (15:29)
[2021-10-13] MEDS ORDERED: BISMUTH SUBSALICYLATE 524 MG/30 ML PO PRN (15:29)
[2021-10-13] MEDS ORDERED: MAGNESIUM CITRATE 300 ML BOTTLE PO PRN (15:29)
[2021-10-13] MEDS ORDERED: ONDANSETRON *ODT* 4 MG TABLET SL PRN (15:29)
[2021-10-13] MEDS ORDERED: ACETAMINOPHEN 325 MG TABLET (FP) PO PRN ×2 (15:29)
[2021-10-13] MEDS ORDERED: MAGNESIUM HYDROX 2400MG/30ML ORAL SUSPENSION 30 ML CUP PO PRN (15:29)
[2021-10-13] MEDS ORDERED: DICYCLOMINE HCL 10 MG CAPSULE PO PRN (15:29)
[2021-10-13] MEDS ORDERED: IBUPROFEN 400 MG TABLET (FP) PO PRN (15:29)
[2021-10-13] MEDS ORDERED: LOPERAMIDE HCL 2 MG CAPSULE PO PRN (15:29)
[2021-10-13] MEDS ORDERED: NICOTINE 10 MG CARTRIDGE (INHALER) IH PRN (15:29)
[2021-10-13] MEDS ORDERED: NALOXONE HCL (KLOXXADO) 8 MG SPRAY NS PRN (15:29)
[2021-10-13] MEDS ORDERED: MAG HYDROX/AL HYDROX/SIMETH 30 ML UNIT-DOSE CUP PO PRN (15:29)
[2021-10-13] MEDS: NICOTINE 21 MG/24 HOURS TOPICAL PATCH TD SCH (19:07)
[2021-10-13] MEDS: hydrOXYzine PAMOATE 25 MG CAPSULE (FP) PO SCH ×2 (19:07→23:30)
[2021-10-13] MEDS: MELATONIN 5 MG TABLETS PO SCH (23:30)
[2021-10-13] MEDS: THIAMINE HCL 100 MG TABLET (FP) PO SCH (23:30)
[2021-10-14] MEDS: hydrOXYzine PAMOATE 25 MG CAPSULE (FP) PO SCH ×5 (06:15→22:38)
[2021-10-14] MEDS ORDERED: chlordiazePOXIDE HCL 25 MG CAPSULE PO PRN (09:38)
[2021-10-14] MEDS ORDERED: methaDONE HCL 10 MG TABLET PO ONE (09:39)
[2021-10-14] MEDS ORDERED: methaDONE HCL 40 MG DISPERSABLE TABLET ONE (10:03)
[2021-10-14] MEDS ORDERED: methaDONE HCL 10 MG TABLET ONE (10:03)
[2021-10-14] MEDS: chlordiazePOXIDE HCL 25 MG CAPSULE PO SCH ×3 (10:43→22:38)
[2021-10-14] MEDS: PRENATAL VITAMINS W/ FOLIC ACID TABLET (FP) PO SCH (10:45)
[2021-10-14] MEDS: NICOTINE 21 MG/24 HOURS TOPICAL PATCH TD SCH (10:45)
[2021-10-14 10:53] LABS: HEMATOCRIT 50.5 % (35.4-49); HEMOGLOBIN 16.9 GM/dL (11.7-16.9); MCH 30.7 pg (25.7-33.7); MCHC 33.5 g/dl (32.0-35.9); MEAN CELL VOLUME 91.7 fl (80-96); MEAN PLT VOLUME 8.3 fl (7.5-11.1); PLATELET COUNT 189 10^3/uL (134-434); RBC 5.51 M/mm3 (4.00-5.60); RDW 14.8 % (11.9-15.9); WHITE BLOOD COUNT 5.6 K/mm3 (4.0-10.0)
[2021-10-14 11:04] LABS: ALBUMIN 3.2 g/dl (3.4-5.0); BLOOD UREA NITROGEN 10.9 mg/dL (7-18); CALCIUM 8.9 mg/dL (8.5-10.1)
[2021-10-14 11:07] LABS: CREATININE 0.8 mg/dL (0.55-1.3)
[2021-10-14 11:08] LABS: BILIRUBIN,TOTAL 0.7 mg/dL (0.2-1); TOT PROT 7.6 g/dl (6.4-8.2)
[2021-10-14] MEDS: amLODIPine BESYLATE 10 MG TABLET (FP) PO SCH (15:50)
[2021-10-14] MEDS: MELATONIN 5 MG TABLETS PO SCH (22:37)
[2021-10-14] MEDS: THIAMINE HCL 100 MG TABLET (FP) PO SCH (22:37)
[2021-10-14] MEDS: QUEtiapine FUMARATE 100 MG TABLET (FP) PO SCH (22:38)
[2021-10-15] MEDS ORDERED: methaDONE HCL 40 MG DISPERSABLE TABLET ONE (04:15)
[2021-10-15] MEDS ORDERED: methaDONE HCL 10 MG TABLET ONE (04:15)
[2021-10-15] MEDS: hydrOXYzine PAMOATE 25 MG CAPSULE (FP) PO SCH ×5 (05:32→23:34)
[2021-10-15] MEDS: chlordiazePOXIDE HCL 25 MG CAPSULE PO SCH ×2 (05:32→10:32)
[2021-10-15] MEDS ORDERED: methaDONE HCL 10 MG TABLET PO SCH (06:00)
[2021-10-15] MEDS: PRENATAL VITAMINS W/ FOLIC ACID TABLET (FP) PO SCH (10:31)
[2021-10-15] MEDS: amLODIPine BESYLATE 10 MG TABLET (FP) PO SCH (10:31)
[2021-10-15] MEDS: NICOTINE 21 MG/24 HOURS TOPICAL PATCH TD SCH (10:33)
[2021-10-15] MEDS ORDERED: LORazepam 1 MG TABLET PO PRN (11:16)
[2021-10-15] MEDS: LORazepam 2 MG TABLET PO SCH ×3 (11:52→23:34)
[2021-10-15] MEDS: LACTULOSE 20 GM/30 ML UDC (FOR ORAL USE ONLY) PO SCH ×2 (11:52→23:35)
[2021-10-15] MEDS: MELATONIN 5 MG TABLETS PO SCH (23:33)
[2021-10-15] MEDS: THIAMINE HCL 100 MG TABLET (FP) PO SCH (23:34)
[2021-10-15] MEDS: QUEtiapine FUMARATE 100 MG TABLET (FP) PO SCH (23:34)
[2021-10-16] MEDS ORDERED: methaDONE HCL 10 MG TABLET ONE (04:20)
[2021-10-16] MEDS ORDERED: methaDONE HCL 40 MG DISPERSABLE TABLET ONE (04:20)
[2021-10-16] MEDS ORDERED: chlordiazePOXIDE HCL 25 MG CAPSULE PO SCH (05:00)
[2021-10-16] MEDS: hydrOXYzine PAMOATE 25 MG CAPSULE (FP) PO SCH ×5 (05:12→23:10)
[2021-10-16] MEDS: LORazepam 1 MG TABLET PO SCH ×4 (05:13→23:09)
[2021-10-16] MEDS: amLODIPine BESYLATE 10 MG TABLET (FP) PO SCH (10:57)
[2021-10-16] MEDS: PRENATAL VITAMINS W/ FOLIC ACID TABLET (FP) PO SCH (10:57)
[2021-10-16] MEDS: LACTULOSE 20 GM/30 ML UDC (FOR ORAL USE ONLY) PO SCH ×2 (10:57→22:35)
[2021-10-16] MEDS: NICOTINE 21 MG/24 HOURS TOPICAL PATCH TD SCH (10:59)
[2021-10-16] MEDS: QUEtiapine FUMARATE 100 MG TABLET (FP) PO SCH (23:09)
[2021-10-16] MEDS: MELATONIN 5 MG TABLETS PO SCH (23:10)
[2021-10-16] MEDS: THIAMINE HCL 100 MG TABLET (FP) PO SCH (23:10)
[2021-10-17] MEDS ORDERED: chlordiazePOXIDE HCL 10 MG CAPSULE PO PRN
[2021-10-17] MEDS ORDERED: LORazepam 0.5 MG TABLET PO PRN
[2021-10-17] MEDS ORDERED: methaDONE HCL 10 MG TABLET ONE (04:30)
[2021-10-17] MEDS ORDERED: methaDONE HCL 40 MG DISPERSABLE TABLET ONE (04:30)
[2021-10-17] MEDS ORDERED: chlordiazePOXIDE HCL 10 MG CAPSULE PO SCH (05:00)
[2021-10-17] MEDS: LORazepam 0.5 MG TABLET PO SCH ×4 (06:27→22:24)
[2021-10-17] MEDS: hydrOXYzine PAMOATE 25 MG CAPSULE (FP) PO SCH ×3 (06:30→14:55)
[2021-10-17] MEDS: PRENATAL VITAMINS W/ FOLIC ACID TABLET (FP) PO SCH (10:41)
[2021-10-17] MEDS: amLODIPine BESYLATE 10 MG TABLET (FP) PO SCH (10:41)
[2021-10-17] MEDS: NICOTINE 21 MG/24 HOURS TOPICAL PATCH TD SCH (10:43)
[2021-10-17] MEDS: LACTULOSE 20 GM/30 ML UDC (FOR ORAL USE ONLY) PO SCH ×2 (10:43→22:24)
[2021-10-17] MEDS ORDERED: hydrOXYzine PAMOATE 25 MG CAPSULE (FP) PO PRN (14:34)
[2021-10-17] MEDS: MELATONIN 5 MG TABLETS PO SCH (22:24)
[2021-10-17] MEDS: THIAMINE HCL 100 MG TABLET (FP) PO SCH (22:24)
[2021-10-17] MEDS: QUEtiapine FUMARATE 100 MG TABLET (FP) PO SCH (22:24)
[2021-10-18] MEDS ORDERED: methaDONE HCL 40 MG DISPERSABLE TABLET ONE (03:59)
[2021-10-18] MEDS ORDERED: methaDONE HCL 10 MG TABLET ONE (03:59)
[2021-10-18] MEDS ORDERED: chlordiazePOXIDE HCL 10 MG CAPSULE PO SCH (05:00)
[2021-10-18] MEDS: LORazepam 0.5 MG TABLET PO SCH (05:18)
[2021-10-18] MEDS: NICOTINE 21 MG/24 HOURS TOPICAL PATCH TD SCH (10:38)
[2021-10-18] MEDS: PRENATAL VITAMINS W/ FOLIC ACID TABLET (FP) PO SCH (10:38)
[2021-10-18] MEDS: amLODIPine BESYLATE 10 MG TABLET (FP) PO SCH (10:39)
[2021-10-18] MEDS: LACTULOSE 20 GM/30 ML UDC (FOR ORAL USE ONLY) PO SCH ×2 (10:39→22:48)
[2021-10-18] MEDS: QUEtiapine FUMARATE 100 MG TABLET (FP) PO SCH (22:29)
[2021-10-18] MEDS: MELATONIN 5 MG TABLETS PO SCH (22:29)
[2021-10-18] MEDS: THIAMINE HCL 100 MG TABLET (FP) PO SCH (22:29)
[2021-10-19] MEDS ORDERED: methaDONE HCL 10 MG TABLET ONE (04:47)
[2021-10-19] MEDS ORDERED: methaDONE HCL 40 MG DISPERSABLE TABLET ONE (04:47)
[2021-10-19] MEDS ORDERED: chlordiazePOXIDE HCL 10 MG CAPSULE PO ONE (05:00)
[2021-10-19] MEDS: PRENATAL VITAMINS W/ FOLIC ACID TABLET (FP) PO SCH (10:15)
[2021-10-19] MEDS: LACTULOSE 20 GM/30 ML UDC (FOR ORAL USE ONLY) PO SCH (10:15)
[2021-10-19] MEDS: NICOTINE 21 MG/24 HOURS TOPICAL PATCH TD SCH (10:15)
[2021-10-19] MEDS: amLODIPine BESYLATE 10 MG TABLET (FP) PO SCH (10:15)
[2021-10-19 12:43] VITALS: BP 119/77; PULSE 70; TEMP 97.1
== END 2021-10-19 15:05 | disposition other institution (70) | DRG 773 ==
LOC: YASAS 13:40 → Y3N 16:59
PROVIDERS: ADMIT Allergy & Immunology; ATTEND Surgery
PROC: HZ2ZZZZ Detoxification Services for Substance Abuse Treatment (ICD-10-PCS; principal; 2021-10-13)
DX: F10.230 Alcohol dependence with withdrawal, uncomplicated (principal); F11.20 Opioid dependence, uncomplicated; F14.20 Cocaine dependence, uncomplicated; F13.20 Sedative, hypnotic or anxiolytic dependence, uncomplicated; F12.20 Cannabis dependence, uncomplicated; F17.210 Nicotine dependence, cigarettes, uncomplicated; F19.280 Other psychoactive substance dependence with psychoactive substance-induced anxiety disorder; F19.282 Other psychoactive substance dependence with psychoactive substance-induced sleep disorder; F19.24 Other psychoactive substance dependence with psychoactive substance-induced mood disorder; F41.1 Generalized anxiety disorder; F32.A Depression, unspecified; E72.20 Disorder of urea cycle metabolism, unspecified; I10 Essential (primary) hypertension; R74.8 Abnormal levels of other serum enzymes; Z56.0 Unemployment, unspecified; Z59.00 Homelessness unspecified
CPT/HCPCS: 36415; 80053; 82140; 85027; 86780; C9803-CS; U0003; U0005

== ENCOUNTER 2021-12-31 10:55 | Inpatient (IN) | payer OTHER ==
[2021-12-31 11:56] VITALS: BMI 28.1
[2021-12-31] MEDS ORDERED: IBUPROFEN 400 MG TABLET (FP) PO PRN (16:08)
[2021-12-31] MEDS ORDERED: ACETAMINOPHEN 325 MG TABLET (FP) PO PRN ×2 (16:08)
[2021-12-31] MEDS ORDERED: IBUPROFEN 600 MG TABLET (FP) PO PRN (16:08)
[2021-12-31] MEDS ORDERED: chlordiazePOXIDE HCL 25 MG CAPSULE PO PRN (16:08)
[2021-12-31] MEDS ORDERED: NICOTINE 10 MG CARTRIDGE (INHALER) IH PRN (16:08)
[2021-12-31] MEDS ORDERED: ONDANSETRON *ODT* 4 MG TABLET SL PRN (16:08)
[2021-12-31] MEDS ORDERED: MAGNESIUM CITRATE 300 ML BOTTLE PO PRN (16:08)
[2021-12-31] MEDS ORDERED: LOPERAMIDE HCL 2 MG CAPSULE PO PRN (16:08)
[2021-12-31] MEDS ORDERED: BISMUTH SUBSALICYLATE 524 MG/30 ML PO PRN (16:08)
[2021-12-31] MEDS ORDERED: DICYCLOMINE HCL 10 MG CAPSULE PO PRN (16:08)
[2021-12-31] MEDS ORDERED: MAG HYDROX/AL HYDROX/SIMETH 30 ML UNIT-DOSE CUP PO PRN (16:08)
[2021-12-31] MEDS ORDERED: MAGNESIUM HYDROX 2400MG/30ML ORAL SUSPENSION 30 ML CUP PO PRN (16:08)
[2021-12-31] MEDS ORDERED: BENZOCAINE/MENTHOL (CHLORASEPTIC ) LOZENGE MM PRN (16:08)
[2021-12-31] MEDS: chlordiazePOXIDE HCL 25 MG CAPSULE PO SCH ×2 (17:18→23:22)
[2021-12-31] MEDS: hydrOXYzine PAMOATE 25 MG CAPSULE (FP) PO SCH ×2 (17:18→23:23)
[2021-12-31] MEDS: PRENATAL VITAMINS W/ FOLIC ACID TABLET (FP) PO SCH (17:18)
[2021-12-31] MEDS: NICOTINE 14 MG/24 HOURS TOPICAL PATCH TD SCH (17:36)
[2021-12-31] MEDS: MELATONIN 5 MG TABLETS PO SCH (23:22)
[2021-12-31] MEDS: THIAMINE HCL 100 MG TABLET (FP) PO SCH (23:23)
[2022-01-01] MEDS: chlordiazePOXIDE HCL 25 MG CAPSULE PO SCH ×4 (05:13→22:30)
[2022-01-01] MEDS: hydrOXYzine PAMOATE 25 MG CAPSULE (FP) PO SCH ×5 (05:13→22:30)
[2022-01-01 10:08] LABS: HEMATOCRIT 51.8 % (35.4-49); HEMOGLOBIN 17.5 GM/dL (11.7-16.9); MCH 31.1 pg (25.7-33.7); MCHC 33.8 g/dl (32.0-35.9); MEAN CELL VOLUME 92.1 fl (80-96); PLATELET COUNT 151 10^3/uL (134-434); RBC 5.62 M/mm3 (4.00-5.60); RDW 14.3 % (11.9-15.9); WHITE BLOOD COUNT 4.9 K/mm3 (4.0-10.0)
[2022-01-01 10:24] LABS: CALCIUM 8.8 mg/dL (8.5-10.1)
[2022-01-01] MEDS: PRENATAL VITAMINS W/ FOLIC ACID TABLET (FP) PO SCH (10:24)
[2022-01-01] MEDS: methaDONE HCL 40 MG DISPERSABLE TABLET PO SCH (10:24)
[2022-01-01] MEDS: METHOCARBAMOL 500 MG TABLET PO PRN ×2 (10:24→18:22)
[2022-01-01 10:25] LABS: ALBUMIN 3.5 g/dl (3.4-5.0); BLOOD UREA NITROGEN 7.2 mg/dL (7-18)
[2022-01-01] MEDS: amLODIPine BESYLATE 10 MG TABLET (FP) PO SCH (10:25)
[2022-01-01 10:28] LABS: CREATININE 0.8 mg/dL (0.55-1.3)
[2022-01-01] MEDS: NICOTINE 14 MG/24 HOURS TOPICAL PATCH TD SCH (10:28)
[2022-01-01 10:29] LABS: BILIRUBIN,TOTAL 1.1 mg/dL (0.2-1); TOT PROT 7.4 g/dl (6.4-8.2)
[2022-01-01] MEDS: GABAPENTIN 300 MG CAPSULE PO SCH ×2 (15:08→22:30)
[2022-01-01] MEDS: MELATONIN 5 MG TABLETS PO SCH (22:30)
[2022-01-01] MEDS: THIAMINE HCL 100 MG TABLET (FP) PO SCH (22:30)
[2022-01-01] MEDS: QUEtiapine FUMARATE 100 MG TABLET (FP) PO SCH (22:30)
[2022-01-02] MEDS: methaDONE HCL 40 MG DISPERSABLE TABLET PO SCH (05:23)
[2022-01-02] MEDS: hydrOXYzine PAMOATE 25 MG CAPSULE (FP) PO SCH ×5 (05:23→22:12)
[2022-01-02] MEDS: GABAPENTIN 300 MG CAPSULE PO SCH ×3 (05:23→22:12)
[2022-01-02] MEDS: chlordiazePOXIDE HCL 25 MG CAPSULE PO SCH ×4 (05:24→22:13)
[2022-01-02] MEDS: PRENATAL VITAMINS W/ FOLIC ACID TABLET (FP) PO SCH (10:16)
[2022-01-02] MEDS: amLODIPine BESYLATE 10 MG TABLET (FP) PO SCH (10:16)
[2022-01-02] MEDS: NICOTINE 14 MG/24 HOURS TOPICAL PATCH TD SCH (10:16)
[2022-01-02] MEDS: METHOCARBAMOL 500 MG TABLET PO PRN ×2 (10:17→17:58)
[2022-01-02] MEDS: THIAMINE HCL 100 MG TABLET (FP) PO SCH (22:12)
[2022-01-02] MEDS: QUEtiapine FUMARATE 100 MG TABLET (FP) PO SCH (22:12)
[2022-01-02] MEDS: MELATONIN 5 MG TABLETS PO SCH (22:12)
[2022-01-03] MEDS ORDERED: chlordiazePOXIDE HCL 10 MG CAPSULE PO PRN
[2022-01-03] MEDS: methaDONE HCL 40 MG DISPERSABLE TABLET PO SCH (05:22)
[2022-01-03] MEDS: hydrOXYzine PAMOATE 25 MG CAPSULE (FP) PO SCH ×5 (05:22→22:08)
[2022-01-03] MEDS: chlordiazePOXIDE HCL 10 MG CAPSULE PO SCH ×4 (05:22→22:07)
[2022-01-03] MEDS: GABAPENTIN 300 MG CAPSULE PO SCH ×3 (05:22→22:07)
[2022-01-03] MEDS: NICOTINE 14 MG/24 HOURS TOPICAL PATCH TD SCH (10:12)
[2022-01-03] MEDS: amLODIPine BESYLATE 10 MG TABLET (FP) PO SCH (10:12)
[2022-01-03] MEDS: METHOCARBAMOL 500 MG TABLET PO PRN ×2 (10:12→22:09)
[2022-01-03] MEDS: PRENATAL VITAMINS W/ FOLIC ACID TABLET (FP) PO SCH (10:12)
[2022-01-03] MEDS: THIAMINE HCL 100 MG TABLET (FP) PO SCH (22:07)
[2022-01-03] MEDS: MELATONIN 5 MG TABLETS PO SCH (22:09)
[2022-01-03] MEDS: QUEtiapine FUMARATE 100 MG TABLET (FP) PO SCH (22:09)
[2022-01-04] MEDS: hydrOXYzine PAMOATE 25 MG CAPSULE (FP) PO SCH ×5 (05:08→22:13)
[2022-01-04] MEDS: chlordiazePOXIDE HCL 10 MG CAPSULE PO SCH ×2 (05:08→17:51)
[2022-01-04] MEDS: methaDONE HCL 40 MG DISPERSABLE TABLET PO SCH (05:09)
[2022-01-04] MEDS: GABAPENTIN 300 MG CAPSULE PO SCH ×3 (05:10→22:12)
[2022-01-04] MEDS: NICOTINE 14 MG/24 HOURS TOPICAL PATCH TD SCH (10:09)
[2022-01-04] MEDS: amLODIPine BESYLATE 10 MG TABLET (FP) PO SCH (10:09)
[2022-01-04] MEDS: PRENATAL VITAMINS W/ FOLIC ACID TABLET (FP) PO SCH (10:09)
[2022-01-04] MEDS: METHOCARBAMOL 500 MG TABLET PO PRN ×2 (10:12→22:15)
[2022-01-04] MEDS ORDERED: QUEtiapine FUMARATE 200 MG TABLET PO SCH (22:00)
[2022-01-04] MEDS: THIAMINE HCL 100 MG TABLET (FP) PO SCH (22:12)
[2022-01-04] MEDS: MELATONIN 5 MG TABLETS PO SCH (22:20)
[2022-01-05] MEDS ORDERED: chlordiazePOXIDE HCL 10 MG CAPSULE PO ONE (05:00)
[2022-01-05 05:25] VITALS: RESP 18
[2022-01-05] MEDS: methaDONE HCL 40 MG DISPERSABLE TABLET PO SCH (05:53)
[2022-01-05] MEDS: hydrOXYzine PAMOATE 25 MG CAPSULE (FP) PO SCH ×2 (05:54→11:22)
[2022-01-05] MEDS: GABAPENTIN 300 MG CAPSULE PO SCH (05:54)
[2022-01-05 09:21] VITALS: BP 104/74; PULSE 67; TEMP 97.7
[2022-01-05] MEDS: NICOTINE 14 MG/24 HOURS TOPICAL PATCH TD SCH (11:22)
[2022-01-05] MEDS: amLODIPine BESYLATE 10 MG TABLET (FP) PO SCH (11:38)
[2022-01-05] MEDS: PRENATAL VITAMINS W/ FOLIC ACID TABLET (FP) PO SCH (11:39)
== END 2022-01-05 11:43 | disposition other institution (70) | DRG 773 ==
LOC: YASAS 10:55 → Y6N 15:55
PROVIDERS: ADMIT Allergy & Immunology; ATTEND Surgery
PROC: HZ2ZZZZ Detoxification Services for Substance Abuse Treatment (ICD-10-PCS; principal; 2021-12-31)
DX: F13.230 Sedative, hypnotic or anxiolytic dependence with withdrawal, uncomplicated (principal); F11.20 Opioid dependence, uncomplicated; F14.20 Cocaine dependence, uncomplicated; F12.20 Cannabis dependence, uncomplicated; F17.210 Nicotine dependence, cigarettes, uncomplicated; F19.282 Other psychoactive substance dependence with psychoactive substance-induced sleep disorder; F19.24 Other psychoactive substance dependence with psychoactive substance-induced mood disorder; I10 Essential (primary) hypertension; Z62.810 Personal history of physical and sexual abuse in childhood; Z86.19 Personal history of other infectious and parasitic diseases; Z59.00 Homelessness unspecified; Z56.0 Unemployment, unspecified
CPT/HCPCS: 36415; 80053; 85027; 86780; C9803-CS; U0003; U0005

== ENCOUNTER 2022-01-05 12:18 | Inpatient (IN) | payer OTHER ==
[2022-01-05] MEDS ORDERED: MAG HYDROX/AL HYDROX/SIMETH 30 ML UNIT-DOSE CUP PO PRN (12:52)
[2022-01-05] MEDS ORDERED: guaiFENesin 200 MG/10 ML 10 ML UNIT-DOSE CUPS PO PRN (12:52)
[2022-01-05] MEDS ORDERED: MAGNESIUM HYDROX 2400MG/30ML ORAL SUSPENSION 30 ML CUP PO PRN (12:52)
[2022-01-05] MEDS ORDERED: BENZOCAINE/MENTHOL (CHLORASEPTIC ) LOZENGE MM PRN (12:52)
[2022-01-05] MEDS ORDERED: hydrOXYzine PAMOATE 25 MG CAPSULE (FP) PO PRN (12:52)
[2022-01-05] MEDS ORDERED: NICOTINE POLACRILEX 2 MG GUM BUC PRN (12:52)
[2022-01-05] MEDS ORDERED: P-EPHED 60MG/TRIPROLIDI 2.5MG TABLET PO PRN (12:52)
[2022-01-05] MEDS ORDERED: MAGNESIUM CITRATE 300 ML BOTTLE PO PRN (12:52)
[2022-01-05] MEDS ORDERED: IBUPROFEN 400 MG TABLET (FP) PO PRN (12:52)
[2022-01-05] MEDS ORDERED: ACETAMINOPHEN 325 MG TABLET (FP) PO PRN (12:52)
[2022-01-05] MEDS ORDERED: LOPERAMIDE HCL 2 MG CAPSULE PO PRN (12:52)
[2022-01-05] MEDS ORDERED: NICOTINE 7 MG/24 HOURS TOPICAL PATCH TD PRN (13:45)
[2022-01-05] MEDS: LIDOCAINE 5% TOPICAL PATCH TP SCH (14:02)
[2022-01-05] MEDS: GABAPENTIN 300 MG CAPSULE PO SCH ×2 (14:03→21:30)
[2022-01-05] MEDS: BACITRACIN 0.9 GM PACKET TP SCH ×2 (14:03→21:30)
[2022-01-05] MEDS: THIAMINE HCL 100 MG TABLET (FP) PO SCH (21:29)
[2022-01-05] MEDS: MELATONIN 5 MG TABLETS PO PRN (21:29)
[2022-01-05] MEDS: LIDOCAINE PATCH REMOVAL MC SCH (21:31)
[2022-01-05] MEDS: hydrOXYzine PAMOATE 25 MG CAPSULE (FP) PO PRN (21:31)
[2022-01-06] MEDS: methaDONE HCL 40 MG DISPERSABLE TABLET PO SCH (06:11)
[2022-01-06] MEDS: GABAPENTIN 300 MG CAPSULE PO SCH ×3 (06:11→21:16)
[2022-01-06] MEDS: PRENATAL VITAMINS W/ FOLIC ACID TABLET (FP) PO SCH (09:48)
[2022-01-06] MEDS: BACITRACIN 0.9 GM PACKET TP SCH ×2 (09:48→21:16)
[2022-01-06] MEDS: LIDOCAINE 5% TOPICAL PATCH TP SCH (09:48)
[2022-01-06] MEDS: amLODIPine BESYLATE 10 MG TABLET (FP) PO SCH (09:58)
[2022-01-06] MEDS: TOLNAFTATE 1% CREAM 15 GM TUBE TP SCH ×2 (09:59→21:18)
[2022-01-06] MEDS: METHOCARBAMOL 500 MG TABLET PO PRN ×2 (09:59→21:16)
[2022-01-06] MEDS: VITAMINS A AND D TOPICAL OINTMENT 60 GM TUBE TP SCH ×2 (13:53→18:45)
[2022-01-06] MEDS: MELATONIN 5 MG TABLETS PO PRN (21:15)
[2022-01-06] MEDS: THIAMINE HCL 100 MG TABLET (FP) PO SCH (21:15)
[2022-01-06] MEDS: hydrOXYzine PAMOATE 25 MG CAPSULE (FP) PO PRN (21:17)
[2022-01-06] MEDS: LIDOCAINE PATCH REMOVAL MC SCH (21:17)
[2022-01-06] MEDS ORDERED: QUEtiapine FUMARATE 200 MG TABLET PO ONE (22:00)
[2022-01-07] MEDS: VITAMINS A AND D TOPICAL OINTMENT 60 GM TUBE TP SCH ×4 (01:27→17:22)
[2022-01-07] MEDS: GABAPENTIN 300 MG CAPSULE PO SCH ×3 (06:03→21:41)
[2022-01-07] MEDS: methaDONE HCL 40 MG DISPERSABLE TABLET PO SCH (06:04)
[2022-01-07] MEDS: hydrOXYzine PAMOATE 25 MG CAPSULE (FP) PO PRN ×2 (06:06→21:42)
[2022-01-07] MEDS: METHOCARBAMOL 500 MG TABLET PO PRN ×2 (06:06→21:41)
[2022-01-07 06:55] VITALS: RESP 18
[2022-01-07] MEDS: amLODIPine BESYLATE 10 MG TABLET (FP) PO SCH (09:32)
[2022-01-07] MEDS: PRENATAL VITAMINS W/ FOLIC ACID TABLET (FP) PO SCH (09:32)
[2022-01-07] MEDS: LIDOCAINE 5% TOPICAL PATCH TP SCH (09:32)
[2022-01-07] MEDS: BACITRACIN 0.9 GM PACKET TP SCH ×2 (09:32→21:41)
[2022-01-07] MEDS: TOLNAFTATE 1% CREAM 15 GM TUBE TP SCH ×2 (09:33→23:31)
[2022-01-07] MEDS ORDERED: LACTULOSE 20 GM/30 ML UDC (FOR ORAL USE ONLY) PO PRN (13:32)
[2022-01-07] MEDS: LIDOCAINE PATCH REMOVAL MC SCH (21:41)
[2022-01-07] MEDS: MELATONIN 5 MG TABLETS PO PRN (21:41)
[2022-01-07] MEDS: THIAMINE HCL 100 MG TABLET (FP) PO SCH (21:41)
[2022-01-07] MEDS ORDERED: QUEtiapine FUMARATE 200 MG TABLET PO ONE (22:29)
[2022-01-08] MEDS: VITAMINS A AND D TOPICAL OINTMENT 60 GM TUBE TP SCH ×4 (00:05→20:39)
[2022-01-08] MEDS: GABAPENTIN 300 MG CAPSULE PO SCH ×3 (06:06→21:42)
[2022-01-08] MEDS: methaDONE HCL 40 MG DISPERSABLE TABLET PO SCH (06:07)
[2022-01-08] MEDS: METHOCARBAMOL 500 MG TABLET PO PRN ×3 (06:07→21:43)
[2022-01-08] MEDS: hydrOXYzine PAMOATE 25 MG CAPSULE (FP) PO PRN (06:07)
[2022-01-08] MEDS ORDERED: DOCUSATE SODIUM 100 MG CAPSULE (FP) PO PRN (10:04)
[2022-01-08] MEDS: LIDOCAINE 5% TOPICAL PATCH TP SCH (10:23)
[2022-01-08] MEDS: amLODIPine BESYLATE 10 MG TABLET (FP) PO SCH (10:23)
[2022-01-08] MEDS: BACITRACIN 0.9 GM PACKET TP SCH ×2 (10:23→21:41)
[2022-01-08] MEDS: PRENATAL VITAMINS W/ FOLIC ACID TABLET (FP) PO SCH (10:24)
[2022-01-08] MEDS: TOLNAFTATE 1% CREAM 15 GM TUBE TP SCH ×2 (10:25→21:44)
[2022-01-08] MEDS: NICOTINE 10 MG CARTRIDGE (INHALER) IH PRN (10:34)
[2022-01-08] MEDS: hydrOXYzine PAMOATE 50 MG CAPSULE (FP) PO PRN ×2 (13:24→21:43)
[2022-01-08] MEDS: LIDOCAINE PATCH REMOVAL MC SCH (21:42)
[2022-01-08] MEDS: QUEtiapine FUMARATE 400 MG TABLET PO SCH (21:42)
[2022-01-08] MEDS: THIAMINE HCL 100 MG TABLET (FP) PO SCH (21:42)
[2022-01-08] MEDS: MELATONIN 5 MG TABLETS PO PRN (21:44)
[2022-01-09] MEDS: VITAMINS A AND D TOPICAL OINTMENT 60 GM TUBE TP SCH ×4 (01:11→17:28)
[2022-01-09] MEDS: GABAPENTIN 300 MG CAPSULE PO SCH ×3 (05:44→21:05)
[2022-01-09] MEDS: METHOCARBAMOL 500 MG TABLET PO PRN ×2 (05:46→21:05)
[2022-01-09] MEDS: hydrOXYzine PAMOATE 50 MG CAPSULE (FP) PO PRN ×4 (05:47→18:51)
[2022-01-09] MEDS: methaDONE HCL 40 MG DISPERSABLE TABLET PO SCH (05:47)
[2022-01-09] MEDS: LIDOCAINE 5% TOPICAL PATCH TP SCH (09:41)
[2022-01-09] MEDS: PRENATAL VITAMINS W/ FOLIC ACID TABLET (FP) PO SCH (09:41)
[2022-01-09] MEDS: BACITRACIN 0.9 GM PACKET TP SCH ×2 (09:41→21:06)
[2022-01-09] MEDS: amLODIPine BESYLATE 10 MG TABLET (FP) PO SCH (09:41)
[2022-01-09] MEDS: TOLNAFTATE 1% CREAM 15 GM TUBE TP SCH ×2 (09:43→21:07)
[2022-01-09] MEDS: NICOTINE 10 MG CARTRIDGE (INHALER) IH PRN (09:51)
[2022-01-09] MEDS: LACTULOSE 20 GM/30 ML UDC (FOR ORAL USE ONLY) PO SCH ×2 (13:43→21:06)
[2022-01-09] MEDS: MELATONIN 5 MG TABLETS PO PRN (21:05)
[2022-01-09] MEDS: QUEtiapine FUMARATE 400 MG TABLET PO SCH (21:05)
[2022-01-09] MEDS: THIAMINE HCL 100 MG TABLET (FP) PO SCH (21:05)
[2022-01-09] MEDS: LIDOCAINE PATCH REMOVAL MC SCH (21:07)
[2022-01-10] MEDS: VITAMINS A AND D TOPICAL OINTMENT 60 GM TUBE TP SCH ×4 (00:48→17:40)
[2022-01-10] MEDS: LACTULOSE 20 GM/30 ML UDC (FOR ORAL USE ONLY) PO SCH ×3 (06:50→21:28)
[2022-01-10] MEDS: GABAPENTIN 300 MG CAPSULE PO SCH ×3 (06:51→21:28)
[2022-01-10] MEDS: METHOCARBAMOL 500 MG TABLET PO PRN ×4 (06:52→21:28)
[2022-01-10] MEDS: methaDONE HCL 40 MG DISPERSABLE TABLET PO SCH (06:52)
[2022-01-10] MEDS: PRENATAL VITAMINS W/ FOLIC ACID TABLET (FP) PO SCH (09:52)
[2022-01-10] MEDS: BACITRACIN 0.9 GM PACKET TP SCH ×2 (09:52→21:28)
[2022-01-10] MEDS: amLODIPine BESYLATE 10 MG TABLET (FP) PO SCH (09:53)
[2022-01-10] MEDS: LIDOCAINE 5% TOPICAL PATCH TP SCH (09:53)
[2022-01-10] MEDS: TOLNAFTATE 1% CREAM 15 GM TUBE TP SCH ×2 (09:53→21:29)
[2022-01-10] MEDS: hydrOXYzine PAMOATE 50 MG CAPSULE (FP) PO PRN ×3 (09:54→21:29)
[2022-01-10] MEDS: NICOTINE 10 MG CARTRIDGE (INHALER) IH PRN ×2 (10:34→21:29)
[2022-01-10] MEDS: QUEtiapine FUMARATE 400 MG TABLET PO SCH (21:28)
[2022-01-10] MEDS: THIAMINE HCL 100 MG TABLET (FP) PO SCH (21:28)
[2022-01-10] MEDS: MELATONIN 5 MG TABLETS PO PRN (21:28)
[2022-01-10] MEDS: LIDOCAINE PATCH REMOVAL MC SCH (21:29)
[2022-01-11] MEDS: VITAMINS A AND D TOPICAL OINTMENT 60 GM TUBE TP SCH ×4 (00:10→18:31)
[2022-01-11] MEDS: METHOCARBAMOL 500 MG TABLET PO PRN ×3 (06:28→21:24)
[2022-01-11] MEDS: LACTULOSE 20 GM/30 ML UDC (FOR ORAL USE ONLY) PO SCH ×3 (06:29→21:25)
[2022-01-11] MEDS: GABAPENTIN 300 MG CAPSULE PO SCH ×3 (06:29→21:22)
[2022-01-11] MEDS: methaDONE HCL 40 MG DISPERSABLE TABLET PO SCH (06:30)
[2022-01-11] MEDS: hydrOXYzine PAMOATE 50 MG CAPSULE (FP) PO PRN ×4 (06:32→21:24)
[2022-01-11] MEDS: amLODIPine BESYLATE 10 MG TABLET (FP) PO SCH (09:42)
[2022-01-11] MEDS: PRENATAL VITAMINS W/ FOLIC ACID TABLET (FP) PO SCH (09:42)
[2022-01-11] MEDS: BACITRACIN 0.9 GM PACKET TP SCH ×2 (09:42→21:25)
[2022-01-11] MEDS: LIDOCAINE 5% TOPICAL PATCH TP SCH (09:42)
[2022-01-11] MEDS: TOLNAFTATE 1% CREAM 15 GM TUBE TP SCH ×2 (09:43→21:25)
[2022-01-11 12:03] LABS: CALCIUM 8.6 mg/dL (8.5-10.1)
[2022-01-11 12:04] LABS: BLOOD UREA NITROGEN 14.7 mg/dL (7-18)
[2022-01-11 12:06] LABS: CREATININE 0.6 mg/dL (0.55-1.3)
[2022-01-11 12:08] LABS: TOT PROT 6.8 g/dl (6.4-8.2)
[2022-01-11 12:09] LABS: BILIRUBIN,TOTAL 0.5 mg/dL (0.2-1)
[2022-01-11 12:18] LABS: ALBUMIN 2.9 g/dl (3.4-5.0)
[2022-01-11] MEDS: NICOTINE 10 MG CARTRIDGE (INHALER) IH PRN (18:30)
[2022-01-11] MEDS: QUEtiapine FUMARATE 400 MG TABLET PO SCH (21:22)
[2022-01-11] MEDS: MELATONIN 5 MG TABLETS PO PRN (21:23)
[2022-01-11] MEDS: THIAMINE HCL 100 MG TABLET (FP) PO SCH (21:23)
[2022-01-11] MEDS: LIDOCAINE PATCH REMOVAL MC SCH (21:25)
[2022-01-12] MEDS: VITAMINS A AND D TOPICAL OINTMENT 60 GM TUBE TP SCH ×4 (00:10→18:55)
[2022-01-12] MEDS: LACTULOSE 20 GM/30 ML UDC (FOR ORAL USE ONLY) PO SCH ×3 (06:22→21:37)
[2022-01-12] MEDS: GABAPENTIN 300 MG CAPSULE PO SCH ×3 (06:22→21:37)
[2022-01-12] MEDS: hydrOXYzine PAMOATE 50 MG CAPSULE (FP) PO PRN ×4 (06:22→21:37)
[2022-01-12] MEDS: methaDONE HCL 40 MG DISPERSABLE TABLET PO SCH (06:23)
[2022-01-12] MEDS: BACITRACIN 0.9 GM PACKET TP SCH ×2 (09:33→21:37)
[2022-01-12] MEDS: amLODIPine BESYLATE 10 MG TABLET (FP) PO SCH (09:33)
[2022-01-12] MEDS: TOLNAFTATE 1% CREAM 15 GM TUBE TP SCH ×2 (09:33→21:38)
[2022-01-12] MEDS: LIDOCAINE 5% TOPICAL PATCH TP SCH (09:33)
[2022-01-12] MEDS: PRENATAL VITAMINS W/ FOLIC ACID TABLET (FP) PO SCH (09:33)
[2022-01-12] MEDS: NICOTINE 10 MG CARTRIDGE (INHALER) IH PRN (09:34)
[2022-01-12] MEDS: METHOCARBAMOL 500 MG TABLET PO PRN ×3 (09:35→21:37)
[2022-01-12] MEDS: THIAMINE HCL 100 MG TABLET (FP) PO SCH (21:37)
[2022-01-12] MEDS: QUEtiapine FUMARATE 400 MG TABLET PO SCH (21:37)
[2022-01-12] MEDS: MELATONIN 5 MG TABLETS PO PRN (21:37)
[2022-01-12] MEDS: LIDOCAINE PATCH REMOVAL MC SCH (21:38)
[2022-01-13] MEDS: VITAMINS A AND D TOPICAL OINTMENT 60 GM TUBE TP SCH ×4 (01:58→19:44)
[2022-01-13] MEDS: GABAPENTIN 300 MG CAPSULE PO SCH ×3 (06:01→21:25)
[2022-01-13] MEDS: LACTULOSE 20 GM/30 ML UDC (FOR ORAL USE ONLY) PO SCH ×3 (06:01→21:25)
[2022-01-13] MEDS: hydrOXYzine PAMOATE 50 MG CAPSULE (FP) PO PRN ×4 (06:01→21:25)
[2022-01-13] MEDS: methaDONE HCL 40 MG DISPERSABLE TABLET PO SCH (06:02)
[2022-01-13] MEDS: METHOCARBAMOL 500 MG TABLET PO PRN ×3 (06:02→21:25)
[2022-01-13] MEDS: amLODIPine BESYLATE 10 MG TABLET (FP) PO SCH (10:04)
[2022-01-13] MEDS: BACITRACIN 0.9 GM PACKET TP SCH ×2 (10:04→21:25)
[2022-01-13] MEDS: PRENATAL VITAMINS W/ FOLIC ACID TABLET (FP) PO SCH (10:04)
[2022-01-13] MEDS: NICOTINE 10 MG CARTRIDGE (INHALER) IH PRN (10:05)
[2022-01-13] MEDS: LIDOCAINE 5% TOPICAL PATCH TP SCH (10:05)
[2022-01-13] MEDS: TOLNAFTATE 1% CREAM 15 GM TUBE TP SCH ×2 (10:07→21:26)
[2022-01-13] MEDS: MELATONIN 5 MG TABLETS PO PRN (21:24)
[2022-01-13] MEDS: THIAMINE HCL 100 MG TABLET (FP) PO SCH (21:25)
[2022-01-13] MEDS: QUEtiapine FUMARATE 400 MG TABLET PO SCH (21:25)
[2022-01-13] MEDS: LIDOCAINE PATCH REMOVAL MC SCH (21:25)
[2022-01-14] MEDS: VITAMINS A AND D TOPICAL OINTMENT 60 GM TUBE TP SCH ×4 (01:54→18:50)
[2022-01-14] MEDS: GABAPENTIN 300 MG CAPSULE PO SCH ×3 (06:42→21:00)
[2022-01-14] MEDS: LACTULOSE 20 GM/30 ML UDC (FOR ORAL USE ONLY) PO SCH ×3 (06:42→21:00)
[2022-01-14] MEDS: METHOCARBAMOL 500 MG TABLET PO PRN ×4 (06:42→21:00)
[2022-01-14] MEDS: methaDONE HCL 40 MG DISPERSABLE TABLET PO SCH (06:43)
[2022-01-14] MEDS: hydrOXYzine PAMOATE 50 MG CAPSULE (FP) PO PRN ×4 (06:44→21:00)
[2022-01-14] MEDS: PRENATAL VITAMINS W/ FOLIC ACID TABLET (FP) PO SCH (09:38)
[2022-01-14] MEDS: amLODIPine BESYLATE 10 MG TABLET (FP) PO SCH (09:38)
[2022-01-14] MEDS: LIDOCAINE 5% TOPICAL PATCH TP SCH (09:39)
[2022-01-14] MEDS: BACITRACIN 0.9 GM PACKET TP SCH ×2 (09:39→21:00)
[2022-01-14] MEDS: TOLNAFTATE 1% CREAM 15 GM TUBE TP SCH ×2 (10:31→21:01)
[2022-01-14] MEDS: THIAMINE HCL 100 MG TABLET (FP) PO SCH (21:00)
[2022-01-14] MEDS: MELATONIN 5 MG TABLETS PO PRN (21:00)
[2022-01-14] MEDS: QUEtiapine FUMARATE 400 MG TABLET PO SCH (21:01)
[2022-01-14] MEDS: LIDOCAINE PATCH REMOVAL MC SCH (21:01)
[2022-01-15] MEDS: VITAMINS A AND D TOPICAL OINTMENT 60 GM TUBE TP SCH ×4 (01:16→18:45)
[2022-01-15] MEDS: LACTULOSE 20 GM/30 ML UDC (FOR ORAL USE ONLY) PO SCH ×3 (06:16→22:33)
[2022-01-15] MEDS: methaDONE HCL 40 MG DISPERSABLE TABLET PO SCH (06:17)
[2022-01-15] MEDS: GABAPENTIN 300 MG CAPSULE PO SCH ×3 (06:18→22:33)
[2022-01-15] MEDS: METHOCARBAMOL 500 MG TABLET PO PRN ×3 (06:18→22:33)
[2022-01-15] MEDS: hydrOXYzine PAMOATE 50 MG CAPSULE (FP) PO PRN ×4 (06:19→22:33)
[2022-01-15] MEDS: LIDOCAINE 5% TOPICAL PATCH TP SCH (09:54)
[2022-01-15] MEDS: BACITRACIN 0.9 GM PACKET TP SCH ×2 (09:54→22:33)
[2022-01-15] MEDS: TOLNAFTATE 1% CREAM 15 GM TUBE TP SCH ×2 (09:55→22:35)
[2022-01-15] MEDS: PRENATAL VITAMINS W/ FOLIC ACID TABLET (FP) PO SCH (09:55)
[2022-01-15] MEDS: amLODIPine BESYLATE 10 MG TABLET (FP) PO SCH (09:55)
[2022-01-15] MEDS: QUEtiapine FUMARATE 400 MG TABLET PO SCH (22:33)
[2022-01-15] MEDS: THIAMINE HCL 100 MG TABLET (FP) PO SCH (22:34)
[2022-01-15] MEDS: SUVOREXANT 10 MG TABLET PO PRN (22:34)
[2022-01-15] MEDS: LIDOCAINE PATCH REMOVAL MC SCH (22:35)
[2022-01-16] MEDS: VITAMINS A AND D TOPICAL OINTMENT 60 GM TUBE TP SCH ×4 (02:12→18:13)
[2022-01-16] MEDS: LACTULOSE 20 GM/30 ML UDC (FOR ORAL USE ONLY) PO SCH ×3 (06:07→21:22)
[2022-01-16] MEDS: methaDONE HCL 40 MG DISPERSABLE TABLET PO SCH (06:08)
[2022-01-16] MEDS: METHOCARBAMOL 500 MG TABLET PO PRN ×3 (06:09→21:21)
[2022-01-16] MEDS: GABAPENTIN 300 MG CAPSULE PO SCH ×3 (06:09→21:20)
[2022-01-16] MEDS: hydrOXYzine PAMOATE 50 MG CAPSULE (FP) PO PRN ×3 (06:09→21:21)
[2022-01-16] MEDS: NICOTINE 10 MG CARTRIDGE (INHALER) IH PRN (06:11)
[2022-01-16] MEDS: amLODIPine BESYLATE 10 MG TABLET (FP) PO SCH (09:45)
[2022-01-16] MEDS: PRENATAL VITAMINS W/ FOLIC ACID TABLET (FP) PO SCH (09:45)
[2022-01-16] MEDS: TOLNAFTATE 1% CREAM 15 GM TUBE TP SCH ×2 (09:45→21:22)
[2022-01-16] MEDS: BACITRACIN 0.9 GM PACKET TP SCH ×2 (09:45→21:21)
[2022-01-16] MEDS: LIDOCAINE 5% TOPICAL PATCH TP SCH (09:45)
[2022-01-16] MEDS: QUEtiapine FUMARATE 400 MG TABLET PO SCH (21:20)
[2022-01-16] MEDS: THIAMINE HCL 100 MG TABLET (FP) PO SCH (21:20)
[2022-01-16] MEDS: LIDOCAINE PATCH REMOVAL MC SCH (21:22)
[2022-01-16] MEDS: SUVOREXANT 10 MG TABLET PO PRN (23:50)
[2022-01-17] MEDS: VITAMINS A AND D TOPICAL OINTMENT 60 GM TUBE TP SCH ×4 (01:45→18:26)
[2022-01-17] MEDS: LACTULOSE 20 GM/30 ML UDC (FOR ORAL USE ONLY) PO SCH ×3 (05:56→21:18)
[2022-01-17] MEDS: methaDONE HCL 40 MG DISPERSABLE TABLET PO SCH (05:57)
[2022-01-17] MEDS: METHOCARBAMOL 500 MG TABLET PO PRN ×4 (05:58→21:18)
[2022-01-17] MEDS: hydrOXYzine PAMOATE 50 MG CAPSULE (FP) PO PRN ×4 (05:58→21:17)
[2022-01-17] MEDS: GABAPENTIN 300 MG CAPSULE PO SCH ×3 (05:59→21:16)
[2022-01-17] MEDS: PRENATAL VITAMINS W/ FOLIC ACID TABLET (FP) PO SCH (10:05)
[2022-01-17] MEDS: BACITRACIN 0.9 GM PACKET TP SCH ×2 (10:05→21:18)
[2022-01-17] MEDS: amLODIPine BESYLATE 10 MG TABLET (FP) PO SCH (10:05)
[2022-01-17] MEDS: LIDOCAINE 5% TOPICAL PATCH TP SCH (10:06)
[2022-01-17] MEDS: TOLNAFTATE 1% CREAM 15 GM TUBE TP SCH ×2 (10:07→21:18)
[2022-01-17] MEDS: SUVOREXANT 10 MG TABLET PO PRN (21:16)
[2022-01-17] MEDS: QUEtiapine FUMARATE 400 MG TABLET PO SCH (21:16)
[2022-01-17] MEDS: THIAMINE HCL 100 MG TABLET (FP) PO SCH (21:17)
[2022-01-17] MEDS: LIDOCAINE PATCH REMOVAL MC SCH (21:18)
[2022-01-18] MEDS: VITAMINS A AND D TOPICAL OINTMENT 60 GM TUBE TP SCH ×4 (01:00→18:40)
[2022-01-18] MEDS: LACTULOSE 20 GM/30 ML UDC (FOR ORAL USE ONLY) PO SCH ×3 (06:00→21:23)
[2022-01-18] MEDS: GABAPENTIN 300 MG CAPSULE PO SCH ×3 (06:01→21:26)
[2022-01-18] MEDS: methaDONE HCL 40 MG DISPERSABLE TABLET PO SCH (06:01)
[2022-01-18] MEDS: hydrOXYzine PAMOATE 50 MG CAPSULE (FP) PO PRN ×4 (06:03→21:23)
[2022-01-18] MEDS: METHOCARBAMOL 500 MG TABLET PO PRN ×3 (06:03→21:23)
[2022-01-18] MEDS: BACITRACIN 0.9 GM PACKET TP SCH ×2 (10:05→21:23)
[2022-01-18] MEDS: LIDOCAINE 5% TOPICAL PATCH TP SCH (10:05)
[2022-01-18] MEDS: amLODIPine BESYLATE 10 MG TABLET (FP) PO SCH (10:05)
[2022-01-18] MEDS: PRENATAL VITAMINS W/ FOLIC ACID TABLET (FP) PO SCH (10:05)
[2022-01-18] MEDS: TOLNAFTATE 1% CREAM 15 GM TUBE TP SCH ×2 (11:23→21:25)
[2022-01-18] MEDS: THIAMINE HCL 100 MG TABLET (FP) PO SCH (21:22)
[2022-01-18] MEDS: SUVOREXANT 10 MG TABLET PO PRN (21:23)
[2022-01-18] MEDS: QUEtiapine FUMARATE 400 MG TABLET PO SCH (21:23)
[2022-01-18] MEDS: LIDOCAINE PATCH REMOVAL MC SCH (21:24)
[2022-01-18] MEDS ORDERED: SUVOREXANT 10 MG TABLET PO PRN (22:00)
[2022-01-19] MEDS: VITAMINS A AND D TOPICAL OINTMENT 60 GM TUBE TP SCH ×2 (01:07→06:42)
[2022-01-19] MEDS: LACTULOSE 20 GM/30 ML UDC (FOR ORAL USE ONLY) PO SCH (06:18)
[2022-01-19] MEDS: methaDONE HCL 40 MG DISPERSABLE TABLET PO SCH (06:19)
[2022-01-19] MEDS: GABAPENTIN 300 MG CAPSULE PO SCH (06:20)
[2022-01-19] MEDS: hydrOXYzine PAMOATE 50 MG CAPSULE (FP) PO PRN (06:20)
[2022-01-19] MEDS: METHOCARBAMOL 500 MG TABLET PO PRN (06:21)
[2022-01-19 06:45] VITALS: TEMP 97.1
[2022-01-19] MEDS: PRENATAL VITAMINS W/ FOLIC ACID TABLET (FP) PO SCH (09:05)
[2022-01-19] MEDS: amLODIPine BESYLATE 10 MG TABLET (FP) PO SCH (09:05)
[2022-01-19 09:06] VITALS: BP 108/71; PULSE 84
[2022-01-19] MEDS: BACITRACIN 0.9 GM PACKET TP SCH (09:06)
[2022-01-19] MEDS: LIDOCAINE 5% TOPICAL PATCH TP SCH (09:06)
== END 2022-01-19 09:12 | disposition home or self-care (01) | DRG 772 ==
LOC: YASAS 12:18 → Y3W 12:19
PROVIDERS: ADMIT Allergy & Immunology; ATTEND Psychiatry & Neurology Pain Medicine
PROC: HZ42ZZZ Group Counseling for Substance Abuse Treatment, Cognitive-Behavioral (ICD-10-PCS; principal; 2022-01-05)
PROC: HZ42ZZZ Group Counseling for Substance Abuse Treatment, Cognitive-Behavioral (ICD-10-PCS; 2022-01-05)
DX: F11.20 Opioid dependence, uncomplicated (principal); F14.20 Cocaine dependence, uncomplicated; F13.20 Sedative, hypnotic or anxiolytic dependence, uncomplicated; F17.210 Nicotine dependence, cigarettes, uncomplicated; F41.9 Anxiety disorder, unspecified; F32.A Depression, unspecified; I10 Essential (primary) hypertension; K59.00 Constipation, unspecified; L85.3 Xerosis cutis; R79.89 Other specified abnormal findings of blood chemistry; S43.101A Unspecified dislocation of right acromioclavicular joint, initial encounter; W19.XXXA Unspecified fall, initial encounter; Y93.89 Activity, other specified; Y92.89 Other specified places as the place of occurrence of the external cause
CPT/HCPCS: 36415; 73000-TC-RT-FY; 80053; 82140

== ENCOUNTER 2022-05-18 11:47 | Inpatient (IN) | payer OTHER ==
[2022-05-18 12:21] VITALS: BMI 23.1
[2022-05-18] MEDS ORDERED: BENZOCAINE/MENTHOL (CHLORASEPTIC ) LOZENGE MM PRN (13:39)
[2022-05-18] MEDS ORDERED: IBUPROFEN 600 MG TABLET (FP) PO PRN (13:39)
[2022-05-18] MEDS ORDERED: BISMUTH SUBSALICYLATE 262 MG/15 ML BTL PO PRN (13:39)
[2022-05-18] MEDS ORDERED: DICYCLOMINE HCL 10 MG CAPSULE PO PRN (13:39)
[2022-05-18] MEDS ORDERED: LOPERAMIDE HCL 2 MG CAPSULE PO PRN (13:39)
[2022-05-18] MEDS ORDERED: ONDANSETRON *ODT* 4 MG TABLET SL PRN (13:39)
[2022-05-18] MEDS ORDERED: NICOTINE 10 MG CARTRIDGE (INHALER) IH PRN (13:39)
[2022-05-18] MEDS ORDERED: MAGNESIUM HYDROX 2400MG/30ML ORAL SUSPENSION 30 ML CUP PO PRN (13:39)
[2022-05-18] MEDS ORDERED: POLYETHYLENE GLYCOL (HEALTHYLAX) 3350 17 GM PACKET PO PRN (13:39)
[2022-05-18] MEDS ORDERED: MAG HYDROX/AL HYDROX/SIMETH 30 ML UNIT-DOSE CUP PO PRN (13:39)
[2022-05-18] MEDS ORDERED: IBUPROFEN 400 MG TABLET (FP) PO PRN (13:39)
[2022-05-18] MEDS ORDERED: NICOTINE POLACRILEX 2 MG GUM BUC PRN (13:39)
[2022-05-18] MEDS ORDERED: ACETAMINOPHEN 325 MG TABLET (FP) PO PRN ×2 (13:39)
[2022-05-18] MEDS ORDERED: NALOXONE HCL (KLOXXADO) 8 MG SPRAY NS PRN (13:39)
[2022-05-18] MEDS ORDERED: amLODIPine BESYLATE 10 MG TABLET (FP) PO SCH (13:45)
[2022-05-18] MEDS ORDERED: cloNIDine HCL 0.1 MG TABLET PO ONE (15:13)
[2022-05-18] MEDS: PRENATAL VITAMINS W/ FOLIC ACID TABLET (FP) PO SCH (15:29)
[2022-05-18] MEDS: hydrOXYzine PAMOATE 25 MG CAPSULE (FP) PO PRN (15:30)
[2022-05-18] MEDS: MELATONIN 5 MG TABLETS PO SCH (23:04)
[2022-05-18] MEDS: THIAMINE HCL 100 MG TABLET (FP) PO SCH (23:04)
[2022-05-19] MEDS: methaDONE HCL 40 MG DISPERSABLE TABLET PO SCH (06:20)
[2022-05-19] MEDS: PRENATAL VITAMINS W/ FOLIC ACID TABLET (FP) PO SCH (10:17)
[2022-05-19] MEDS: amLODIPine BESYLATE 10 MG TABLET (FP) PO SCH (10:18)
[2022-05-19] MEDS: hydrOXYzine PAMOATE 25 MG CAPSULE (FP) PO PRN ×2 (10:19→17:32)
[2022-05-19] MEDS: diazePAM 5 MG TABLET PO SCH ×3 (11:59→22:14)
[2022-05-19 13:01] LABS: HEMATOCRIT 44.2 % (35.4-49); HEMOGLOBIN 14.6 GM/dL (11.7-16.9); MCH 30.8 pg (25.7-33.7); MCHC 33.2 g/dl (32.0-35.9); PLATELET COUNT 178 10^3/uL (134-434); RBC 4.75 M/mm3 (4.00-5.60); WHITE BLOOD COUNT 4.8 K/mm3 (4.0-10.0)
[2022-05-19 13:14] LABS: BLOOD UREA NITROGEN 10.8 mg/dL (7-18); CALCIUM 8.7 mg/dL (8.5-10.1)
[2022-05-19 13:15] LABS: ALBUMIN 3.1 g/dl (3.4-5.0); CREATININE 0.8 mg/dL (0.55-1.3)
[2022-05-19 13:16] LABS: BILIRUBIN,TOTAL 1.3 mg/dL (0.2-1)
[2022-05-19] MEDS: METHOCARBAMOL 500 MG TABLET PO PRN (17:33)
[2022-05-19] MEDS: MELATONIN 5 MG TABLETS PO SCH (22:14)
[2022-05-19] MEDS: THIAMINE HCL 100 MG TABLET (FP) PO SCH (22:14)
[2022-05-20] MEDS: methaDONE HCL 40 MG DISPERSABLE TABLET PO SCH (06:00)
[2022-05-20] MEDS: diazePAM 5 MG TABLET PO SCH ×4 (06:00→22:21)
[2022-05-20] MEDS: amLODIPine BESYLATE 10 MG TABLET (FP) PO SCH (10:17)
[2022-05-20] MEDS: PRENATAL VITAMINS W/ FOLIC ACID TABLET (FP) PO SCH (10:17)
[2022-05-20] MEDS: hydrOXYzine PAMOATE 25 MG CAPSULE (FP) PO PRN (10:20)
[2022-05-20] MEDS: METHOCARBAMOL 500 MG TABLET PO PRN ×2 (10:20→22:23)
[2022-05-20] MEDS: ASPIRIN COATED 81 MG TABLET.EC PO SCH (17:53)
[2022-05-20] MEDS: MELATONIN 5 MG TABLETS PO SCH (22:22)
[2022-05-20] MEDS: THIAMINE HCL 100 MG TABLET (FP) PO SCH (22:22)
[2022-05-21] MEDS: methaDONE HCL 40 MG DISPERSABLE TABLET PO SCH (05:41)
[2022-05-21] MEDS: diazePAM 5 MG TABLET PO SCH ×3 (05:43→22:50)
[2022-05-21] MEDS: PRENATAL VITAMINS W/ FOLIC ACID TABLET (FP) PO SCH (10:15)
[2022-05-21] MEDS: ASPIRIN COATED 81 MG TABLET.EC PO SCH (10:16)
[2022-05-21] MEDS: amLODIPine BESYLATE 10 MG TABLET (FP) PO SCH (10:16)
[2022-05-21] MEDS: METHOCARBAMOL 500 MG TABLET PO PRN (10:18)
[2022-05-21] MEDS: diazePAM 5 MG TABLET PO PRN (10:19)
[2022-05-21 13:17] LABS: BILIRUBIN,TOTAL 0.8 mg/dL (0.2-1)
[2022-05-21] MEDS: MELATONIN 5 MG TABLETS PO SCH (22:50)
[2022-05-21] MEDS: THIAMINE HCL 100 MG TABLET (FP) PO SCH (22:50)
[2022-05-21] MEDS: QUEtiapine FUMARATE 100 MG TABLET (FP) PO SCH (22:50)
[2022-05-22] MEDS: methaDONE HCL 40 MG DISPERSABLE TABLET PO SCH (04:59)
[2022-05-22] MEDS: diazePAM 5 MG TABLET PO SCH ×2 (05:02→17:54)
[2022-05-22] MEDS: ASPIRIN COATED 81 MG TABLET.EC PO SCH (09:54)
[2022-05-22] MEDS: amLODIPine BESYLATE 10 MG TABLET (FP) PO SCH (09:54)
[2022-05-22] MEDS: PRENATAL VITAMINS W/ FOLIC ACID TABLET (FP) PO SCH (09:54)
[2022-05-22] MEDS: diazePAM 5 MG TABLET PO PRN (09:55)
[2022-05-22] MEDS: MELATONIN 5 MG TABLETS PO SCH (22:34)
[2022-05-22] MEDS: QUEtiapine FUMARATE 100 MG TABLET (FP) PO SCH (22:34)
[2022-05-22] MEDS: METHOCARBAMOL 500 MG TABLET PO PRN (22:34)
[2022-05-22] MEDS: THIAMINE HCL 100 MG TABLET (FP) PO SCH (22:35)
[2022-05-23] MEDS: methaDONE HCL 40 MG DISPERSABLE TABLET PO SCH (05:41)
[2022-05-23] MEDS ORDERED: diazePAM 5 MG TABLET PO ONE (06:00)
[2022-05-23] MEDS: PRENATAL VITAMINS W/ FOLIC ACID TABLET (FP) PO SCH (10:03)
[2022-05-23] MEDS: METHOCARBAMOL 500 MG TABLET PO PRN (10:03)
[2022-05-23] MEDS: amLODIPine BESYLATE 10 MG TABLET (FP) PO SCH (10:03)
[2022-05-23] MEDS: ASPIRIN COATED 81 MG TABLET.EC PO SCH (10:03)
[2022-05-23 12:53] VITALS: BP 111/67; PULSE 61; RESP 18; TEMP 96.8
== END 2022-05-23 13:52 | disposition home or self-care (01) | DRG 773 ==
LOC: YASAS 11:47 → Y3N 14:31 → UNDOADMIN 14:31
PROVIDERS: ADMIT Allergy & Immunology; ATTEND Surgery
PROC: HZ2ZZZZ Detoxification Services for Substance Abuse Treatment (ICD-10-PCS; principal; 2022-05-18)
DX: F13.230 Sedative, hypnotic or anxiolytic dependence with withdrawal, uncomplicated (principal); F11.20 Opioid dependence, uncomplicated; F14.20 Cocaine dependence, uncomplicated; F17.210 Nicotine dependence, cigarettes, uncomplicated; F31.9 Bipolar disorder, unspecified; F19.24 Other psychoactive substance dependence with psychoactive substance-induced mood disorder; G47.00 Insomnia, unspecified; R74.01 Elevation of levels of liver transaminase levels; Z86.19 Personal history of other infectious and parasitic diseases; Z56.0 Unemployment, unspecified; Z59.00 Homelessness unspecified; Z91.199 Patient's noncompliance with other medical treatment and regimen due to unspecified reason
CPT/HCPCS: 36415; 80053; 82247; 82947; 83036; 84450; 84460; 85027; 86780; 93005; 93010; C9803-CS; U0003; U0005